=== PATIENT | female | born 1950 | race American Indian/Alaskan Native ===

== ENCOUNTER 2016-08-10 13:37 | Emergency (ER) | payer MEDICARE ==
[2016-08-10 18:34] VITALS: BP 160/100
--- NOTE | 2016-08-10 19:19 | Emergency Department Report ---
ED Shortness of Breath HPI - General Chief Complaint: Upper Respiratory Infection Stated Complaint: UPPER RESP INFECTION Time Seen by Provider: 08/10/16 19:19 Source: patient Mode of arrival: Ambulatory Limitations: No Limitations - History of Present Illness Initial Comments: Patient here complaining of cough and cold symptoms and reported her sinuses are acting up. She says she has a productive cough with yellow mucus. Denies any fever or chills. Patient stated that she walked to her primary care physician office today and that with atrial flutter breath. She says she is out of her oxygen tank at home and Dr. THOMPSON ordered oxygen for her and will receive tomorrow. She denies any abdominal pain, nausea or vomiting. Patient says she is on oxygen as needed for chronic obstructive pulmonary disease. She says she is not on any medication. Denies any chest pain. MD Complaint: shortness of breath, cough -: This afternoon Pain Scale: 0 Improves With: oxygen Worsens With: nothing Known History Of: COPD Context: recent URI, occured during exertion Associated Symptoms: cough, sputum production Treatments Prior to Arrival: none - Related Data Home Oxygen Therapy: Yes Home Oxygen Amount: 2 Liters Previous Rx's Medication Instructions Recorded Last Taken Type cloNIDine [Catapres] 0.2 mg PO TID #30 tablet 03/19/15 2 Days Ago Rx 0.2 hydrALAZINE [Apresoline TAB] 50 mg PO Q8HR #90 tablet 03/19/15 1 Day Ago Rx 50 ALBUTEROL Inhaler [ProAir HFA 2 puff IH QID PRN #1 inhalation 08/10/16 Unknown Rx Inhaler] Azithromycin [Zithromax Z-TAMMIE] 250 mg PO DAILY #6 tab 08/10/16 Unknown Rx Fluticasone [Flonase] 1 spray NS QDAY #1 bottle 08/10/16 Unknown Rx predniSONE [Deltasone] 50 mg PO QDAY #6 tab 08/10/16 Unknown Rx Allergies Allergy/AdvReac Type Severity Reaction Status Date / Time No Known Allergies Allergy Verified 03/15/15 07:34 ED Review of Systems ROS: Stated complaint: UPPER RESP INFECTION Other details as noted in HPI Comment: All other systems reviewed and negative Constitutional: denies: chills, fever Eyes: denies: eye discharge ENT: congestion Respiratory: cough, shortness of breath, SOB with exertion. 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) Hx COPD: Yes Hx Dementia: No Hx HIV: No Additional medical history: bells palsy - Surgical History Past Surgical History?: No - Family History Family history: hypertension - Social History Smoking Status: Current Some Day Smoker Substance Use Type: None - Medications Home Medications: Home Medications Medication Instructions Recorded Confirmed Last Taken Type cloNIDine [Catapres] 0.2 mg PO TID #30 tablet 03/19/15 03/15/16 2 Days Ago Rx 0.2 hydrALAZINE [Apresoline TAB] 50 mg PO Q8HR #90 tablet 03/19/15 03/15/16 1 Day Ago Rx 50 ALBUTEROL Inhaler [ProAir HFA 2 puff IH QID PRN #1 inhalation 08/10/16 Unknown Rx Inhaler] Azithromycin [Zithromax Z-TAMMIE] 250 mg PO DAILY #6 tab 08/10/16 Unknown Rx Fluticasone [Flonase] 1 spray NS QDAY #1 bottle 08/10/16 Unknown Rx predniSONE [Deltasone] 50 mg PO QDAY #6 tab 08/10/16 Unknown Rx ED Physical Exam - General Limitations: No Limitations General appearance: alert, in no apparent distress - Head Head exam: Present: atraumatic, normocephalic, normal inspection - Eye Eye exam: Present: normal appearance, PERRL, EOMI Pupils: Present: normal accommodation - ENT ENT exam: Present: normal external ear exam, other (Bilateral nasal mucosa erythema congested. Sinuses nontender to palpate.). Absent: TM's normal bilaterally (Bilateral TMs congested.) - Respiratory Respiratory exam: Present: wheezes, rhonchi, decreased breath sounds, other ( congested cough). Absent: respiratory distress, rales, stridor, chest wall tenderness, accessory muscle use - Cardiovascular Cardiovascular Exam: Present: regular rate, normal rhythm, normal heart sounds - GI/Abdominal GI/Abdominal exam: Present: soft, normal bowel sounds - Extremities Exam Extremities exam: Present: normal inspection, full ROM, normal capillary refill. Absent: tenderness, pedal edema, joint swelling, calf tenderness - Back Exam Back exam: Present: normal inspection, full ROM. Absent: tenderness, CVA tenderness (R), CVA tenderness (L), muscle spasm, paraspinal tenderness, vertebral tenderness, rash noted - Neurological Exam Neurological exam: Present: alert, oriented X3, normal gait, reflexes normal. Absent: motor sensory deficit - Psychiatric Psychiatric exam: Present: normal affect, normal mood - Skin Skin exam: Present: warm, dry, intact, normal color. Absent: rash ED Course Vital Signs 08/10/16 08/10/16 08/10/16 14:32 18:33 19:02 Temperature 98.6 F 98.8 F Pulse Rate 93 H 89 74 Respiratory 20 Rate Blood Pressure 136/91 160/100 O2 Sat by Pulse 93 90 Oximetry Vital Signs 08/10/16 08/10/16 08/10/16 14:32 18:33 19:02 Temperature 98.6 F 98.8 F Pulse Rate 93 H 89 74 Respiratory 20 Rate Blood Pressure 136/91 160/100 O2 Sat by Pulse 93 90 Oximetry 08/10/16 20:59 Temperature Pulse Rate Respiratory Rate Blood Pressure O2 Sat by Pulse 93 Oximetry - Reevaluation(s) Reevaluation #1: 08/10/16 21:[address] Duarte. Patient to follow up with him in his office tomorrow Reevaluation #2: 08/10/16 21:21 Status post nebulizer treatment. Patient's pulse ox is 93% ambulatory. Lungs sounds with scattered wheezing to upper lung mesa. ED Medical Decision Making - Radiology Data Radiology results: image reviewed interpreted by me: Chest x-ray revealed no acute cardiopulmonary processes. Xray reviewed by Dr. Cruz - Medical Decision Making ED course: Patient presented to emergency room with worsening shortness of breath after walking to her primary care physician office today. She has a history of chronic obstructive pulmonary disease and says that she uses home O2 as needed. She says she went to her primary care doctor for antibiotic for sinus infection and for him to O2 tank. I discussed the patient and S2 O2 tank from the hospital she will need to be admitted and seen by director case management to set up O2 for home. Patient is going to stay here she wants to go home. I spoke with Dr. Duarte regarding patient presentation to hospital clinical findings. He wants patient to follow-up with him in his office tomorrow. I discussed with patient and she is in agreement. I discussed with her that her chest x- ray results was negative for infection. Patient given DuoNeb times one nebulizer and Deltasone 60 mg in emergency room. Pulse ox 1 to emergency room was 93% on room air. POX on 3 l O2 98%. Absent. Pulse ox is 93% on room air. Patient will be discharged home with prescription for Zithromax, Flonase, prednisone and albuterol. - Differential Diagnosis exacerbation of COPD, acute bronchitis,PNA, sinusitis Critical care attestation.: If time is entered above; I have spent that time in minutes in the direct care of this critically ill patient, excluding procedure time. ED Disposition Clinical Impression: Cough Acute bronchitis Qualifiers: Bronchitis organism: unspecified organism Qualified Code(s): J20.9 - Acute bronchitis, unspecified Sinusitis Qualifiers: Sinusitis location: unspecified location Chronicity: acute Recurrence: not specified as recurrent Qualified Code(s): J01.90 - Acute sinusitis, unspecified Disposition: DISCHARGED TO HOME OR SELFCARE Is pt being admited?: No Does the pt Need Aspirin: No Condition: Stable Instructions: Acute Bronchitis (ED), Sinusitis (ED), Acute Cough (ED) Additional Instructions: Follow-up with primary care physician in the morning. I spoke with Dr. Duarte and he wants you to followup in the morning Take medications as prescribed Prescriptions: ALBUTEROL Inhaler [ProAir HFA Inhaler] 2 puff IH QID PRN #1 inhalation PRN Reason: Wheezing and Cough Azithromycin [Zithromax Z-TAMMIE] 250 mg PO DAILY #6 tab Fluticasone [Flonase] 1 spray NS QDAY #1 bottle predniSONE [Deltasone] 50 mg PO QDAY #6 tab Referrals: PIEDAD DUARTE MD [Primary Care Provider] - 08/11/16 Forms: Work/School Release Form(ED)
[2016-08-10] MEDS ORDERED: DELTASONE PO ONE (19:54)
[2016-08-10] MEDS ORDERED: DUONEB 0.5 MG-3 MG/3 ML SOLN IH ONE (19:58)
--- NOTE | 2016-08-11 08:24 | XRay Report ---
CHEST X-RAY, 2 VIEWS: HISTORY: Shortness of breath. FINDINGS: Compared to 06/12/16. Heart size and pulmonary vascularity are stable at the upper limits of normal. Linear scarring in the lingula is unchanged. Otherwise, the lungs are generally clear. Chronic changes in the lung bases are noted. No pleural effusion or pneumothorax. IMPRESSION: No acute cardiopulmonary process. No change since 06/12/16.
== END 2016-08-10 21:33 | disposition home or self-care (01) ==
LOC: ED 13:37
DX: J02.9 Acute pharyngitis, unspecified (principal); J01.90 Acute sinusitis, unspecified; R05 Cough; I10 Essential (primary) hypertension; I63.9 Cerebral infarction, unspecified; J44.9 Chronic obstructive pulmonary disease, unspecified; F17.200 Nicotine dependence, unspecified, uncomplicated
CPT/HCPCS: 71020; 94640

== ENCOUNTER 2017-06-07 09:16 | Emergency (ER) | payer MEDICARE ==
[2017-06-07 09:34] VITALS: BP 153/91
[2017-06-07 09:58] LABS: Basophils % (Auto) 0.8 % (0.0-1.8); Hemoglobin 19.3 gm/dl (10.1-14.3); Mean Corpuscular HGB Conc 34 % (30-34); Mean Corpuscular Hemoglobin 31 pg (28-32); Mean Corpuscular Volume 93 fl (79-97); Red Blood Count 6.18 M/mm3 (3.65-5.03); Red Cell Distribution Width 15.6 % (13.2-15.2)
[2017-06-07 10:05] LABS: INR 0.99 (0.87-1.13); Partial Thromboplastin Time 33.4 Sec. (24.2-36.6)
[2017-06-07 10:06] LABS: Platelet Count 231 K/mm3 (140-440)
[2017-06-07 10:08] LABS: Hematocrit 57.6 % (30.3-42.9)
[2017-06-07 10:16] LABS: BUN/Creatinine Ratio 13; Blood Urea Nitrogen 9 mg/dL (7-17); Calcium 8.8 mg/dL (8.4-10.2); Carbon Dioxide 24 mmol/L (22-30); Glucose 190 mg/dL (65-100)
--- NOTE | 2017-06-07 10:16 | Cat Scan Report ---
CT HEAD WITHOUT CONTRAST: HISTORY: Stroke. TECHNIQUE: Sequential CT images without contrast. FINDINGS: Images obtained show bilateral prominence of the sulci and ventricles. There are no abnormal intra- or extra-axial blood or fluid collections. There are no focal masses or evidence of mass effect. The frank white matter differentiation appears within normal limits. Regions of periventricular decreased attenuation are consistent with microangiopathic ischemic disease. The posterior fossa structures including the fourth ventricle, cerebellum, and brainstem appear normal. The sinuses are clear. Partial opacification of the right mastoid air cells is unchanged since 06/12/16. IMPRESSION: Evidence of atrophy and microangiopathic ischemic disease. No acute intracranial process noted. No significant change since 06/12/16.
[2017-06-07 10:17] LABS: Anion Gap 20 mmol/L; Chloride 99.2 mmol/L (98-107); Potassium 3.9 mmol/L (3.6-5.0); Sodium 139 mmol/L (137-145)
--- NOTE | 2017-06-07 13:18 | Emergency Department Report ---
ED Headache HPI - General Chief Complaint: Headache Stated Complaint: STROKE Time Seen by Provider: 06/07/17 11:25 Source: patient - History of Present Illness Initial Comments: Patient is 66 years old female history of hypertension and hemorrhagic CVA in 2015, presented to the ER complaining of headache started last night, throbbing in nature. Patient denied any weakness, numbness or tingling sensation. Patient denied fever or stiff neck. She also denied any bowel or bladder incontinence. Patient also stated that for the last few days she's been having runny nose and congestion. Timing/Duration: 24 hours Quality: moderate Head Injury Location: global Recent Head Trauma: no recent headache/trauma, frequent headaches Associated Symptoms: sinus infection. denies: denies symptoms, confusion, fatigue, facial pain, fever/chills, flushing, loss of consciousness, nausea/ vomiting, nasal congestion, nasal drainage, numbness in legs/feet, rash, seizures, stiff neck, vision changes, weakness, other Allergies/Adverse Reactions: Allergies No Known Allergies Allergy (Verified 03/15/15 07:34) Home Medications: Ambulatory Orders cloNIDine [Catapres] 0.2 mg PO TID #30 tablet 03/19/15 hydrALAZINE [Apresoline TAB] 50 mg PO Q8HR #90 tablet 03/19/15 ALBUTEROL Inhaler [ProAir HFA Inhaler] 2 puff IH QID PRN #1 inhalation 08/10/16 Azithromycin [Zithromax Z-TAMMIE] 250 mg PO DAILY #6 tab 08/10/16 Fluticasone [Flonase] 1 spray NS QDAY #1 bottle 08/10/16 predniSONE [Deltasone] 50 mg PO QDAY #6 tab 08/10/16 ED Review of Systems ROS: Stated complaint: STROKE Other details as noted in HPI Comment: All other systems reviewed and negative Constitutional: denies: chills, fever ENT: congestion Respiratory: denies: cough, shortness of breath, SOB with exertion, SOB at rest Cardiovascular: denies: chest pain, palpitations Gastrointestinal: denies: abdominal pain, nausea, vomiting Genitourinary: denies: urgency, dysuria Musculoskeletal: denies: back pain Skin: denies: rash, lesions Neurological: headache. 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) Hx COPD: Yes Hx Dementia: No Hx HIV: No Additional medical history: bells palsy, dementia - Surgical History Past Surgical History?: No - Social History Smoking Status: Current Every Day Smoker Substance Use Type: None - Medications Home Medications: Home Medications Medication Instructions Recorded Confirmed Last Taken Type cloNIDine [Catapres] 0.2 mg PO TID #30 tablet 03/19/15 03/15/16 2 Days Ago Rx ~03/13/16 0.2 hydrALAZINE [Apresoline TAB] 50 mg PO Q8HR #90 tablet 03/19/15 03/15/16 1 Day Ago Rx ~03/14/16 50 ALBUTEROL Inhaler [ProAir HFA 2 puff IH QID PRN #1 inhalation 08/10/16 Unknown Rx Inhaler] Azithromycin [Zithromax Z-TAMMIE] 250 mg PO DAILY #6 tab 08/10/16 Unknown Rx Fluticasone [Flonase] 1 spray NS QDAY #1 bottle 08/10/16 Unknown Rx predniSONE [Deltasone] 50 mg PO QDAY #6 tab 08/10/16 Unknown Rx ED Physical Exam - General Limitations: No Limitations General appearance: alert, in no apparent distress - Head Head exam: Present: atraumatic, normocephalic, normal inspection - Eye Eye exam: Present: normal appearance, PERRL Pupils: Present: normal accommodation - ENT ENT exam: Present: normal exam, normal orophraynx, mucous membranes moist - Neck Neck exam: Present: normal inspection, full ROM. Absent: tenderness, meningismus, lymphadenopathy, thyromegaly - Respiratory Respiratory exam: Present: normal lung sounds bilaterally. Absent: respiratory distress, wheezes, rales, rhonchi, stridor, chest wall tenderness, accessory muscle use, decreased breath sounds, prolonged expiratory - Cardiovascular Cardiovascular Exam: Present: regular rate, normal rhythm, normal heart sounds - GI/Abdominal GI/Abdominal exam: Present: soft, normal bowel sounds. Absent: distended, tenderness, guarding, rebound, rigid, organomegaly, mass, bruit, pulsatile mass , hernia - Extremities Exam Extremities exam: Present: normal inspection, full ROM, normal capillary refill - Back Exam Back exam: Present: normal inspection. Absent: tenderness, CVA tenderness (R), CVA tenderness (L) - Neurological Exam Neurological exam: Present: alert, oriented X3, CN II-XII intact, normal gait, reflexes normal. Absent: abnormal gait, motor sensory deficit - Psychiatric Psychiatric exam: Present: normal mood. Absent: depressed, suicidal ideation - Skin Skin exam: Present: warm, intact, normal color ED Course Vital Signs 06/07/17 09:22 Temperature 98.4 F Pulse Rate 79 Respiratory 19 Rate Blood Pressure 153/91 O2 Sat by Pulse 88 Oximetry - Reevaluation(s) Reevaluation #1: 06/07/17 15:44 Patient stated that she is feeling much better. Patient denied any weakness numbness or tingling sensation. No bowel or bladder incontinence. ED Medical Decision Making - Lab Data Result diagrams: 06/07/17 09:41 06/07/17 09:41 - Radiology Data Radiology results: report reviewed Referring Physician: AYLEEN HANKINS Patient Name: MONICA BERNAL Date of : 1950 Sex: Female Report Date: 2017-06-07 Report Status: [place] [address] Cat Scan Report Signed Patient: MONICA BERNAL MR#: [id number] : 1950 Acct:[id number] Age/Sex: 66 / F ADM Date: 06/07/17 Loc: ED Attending Dr: Ordering Physician: AYLEEN HANKINS MD Date of Service: 06/07/17 Procedure(s): CT head/brain wo con Accession Number(s): [id number] cc: AYLEEN HANKINS MD CT HEAD WITHOUT CONTRAST: HISTORY: Stroke. TECHNIQUE: Sequential CT images without contrast. FINDINGS: Images obtained show bilateral prominence of the sulci and ventricles. There are no abnormal intra- or extra-axial blood or fluid collections. There are no focal masses or evidence of mass effect. The frank white matter differentiation appears within normal limits. Regions of periventricular decreased attenuation are consistent with microangiopathic ischemic disease. The posterior fossa structures including the fourth ventricle, cerebellum, and brainstem appear normal. The sinuses are clear. Partial opacification of the right mastoid air cells is unchanged since 06/12/16. IMPRESSION: Evidence of atrophy and microangiopathic ischemic disease. No acute intracranial process noted. No significant change since 06/12/16. Transcribed By: TTR Dictated By: FLORENCE MOLINA JR, MD Electronically Authenticated By: FLORENCE MOLINA JR, MD Signed Date/Time: 06/07/17 1012 DD/ 1011 TD/TT: 06/07/17 1012 Critical care attestation.: If time is entered above; I have spent that time in minutes in the direct care of this critically ill patient, excluding procedure time. ED Disposition Clinical Impression: Headache Disposition: DC-01 TO HOME OR SELFCARE Is pt being admited?: No Condition: Stable Instructions: Acute Headache (ED) Referrals: PRIMARY CARE, [Primary Care Provider] - 3-5 Days
[2017-06-07] MEDS ORDERED: ZOFRAN IM ONE (13:20)
[2017-06-07] MEDS ORDERED: MORPHINE IM ONE (13:20)
== END 2017-06-07 15:30 | disposition home or self-care (01) ==
LOC: ED 09:16
DX: R51 Headache (principal); I10 Essential (primary) hypertension; J44.9 Chronic obstructive pulmonary disease, unspecified; F17.200 Nicotine dependence, unspecified, uncomplicated
CPT/HCPCS: 36415; 70450; 80048; 84484; 85025; 85610; 85670; 85730

== ENCOUNTER 2019-01-19 23:28 | Emergency (ER) | payer SELFPAY ==
--- NOTE | 2019-01-20 01:11 | Emergency Department Report ---
ED General Adult HPI - General Chief complaint: Fall Stated complaint: COPD DEMENTIA CONSTANTLY FALLING DOWN Time Seen by Provider: 01/20/19 00:52 Source: patient, family, RN notes reviewed Mode of arrival: Wheelchair Limitations: Physical Limitation - History of Present Illness Initial comments: Primary care Dr.: Dr. Oleg Muñoz Past medical history: Dementia, stroke This is a 68-year-old female. She is brought to the hospital by family. Family endorse that the patient has been having increasing frequency of falls, increasing unsteady gait, accidentally urinating on herself, and not able to take care of herself. The symptoms have been going on for the past few weeks. They are constant, does not radiate anywhere as per family do not have exa cerbating or liver factors, and they appear to be worsening. The patient endorses no complaints to this provider. As per family, they're not sure she is taking any new medications. However, they do believe that she is taking a "dementia medication." Below the name of this medication. So far, patient as per family has not been evaluated for home health and home physical therapy. The patient as per family is walking, and during walking, gradually starts to bend over. -: Gradual, week(s) Consistency: other Improves with: other Worsens with: other - Related Data Previous Rx's Medication Instructions Recorded Last Taken Type cloNIDine [Catapres] 0.2 mg PO TID #30 tablet 03/19/15 2 Days Ago Rx ~03/13/16 0.2 hydrALAZINE [Apresoline TAB] 50 mg PO Q8HR #90 tablet 03/19/15 1 Day Ago Rx ~03/14/16 50 ALBUTEROL Inhaler (OR & NICU) 2 puff IH QID PRN #1 inhalation 08/10/16 Unknown Rx [ProAir HFA Inhaler] Azithromycin [Zithromax Z-TAMMIE] 250 mg PO DAILY #6 tab 08/10/16 Unknown Rx Fluticasone [Flonase] 1 spray NS QDAY #1 bottle 08/10/16 Unknown Rx predniSONE [Deltasone] 50 mg PO QDAY #6 tab 08/10/16 Unknown Rx Ondansetron [Zofran Odt] 4 mg PO Q8HR PRN #14 tab.rapdis 06/07/17 Unknown Rx traMADol [Ultram 50 MG tab] 50 mg PO Q4HR PRN #14 tablet 06/07/17 Unknown Rx Albuterol Sulfate [Proair 90 mcg IH Q4HR PRN #2 aer.pow.ba 01/20/19 Unknown Rx Respiclick] Allergies Allergy/AdvReac Type Severity Reaction Status Date / Time No Known Allergies Allergy Verified 03/15/15 07:34 ED Review of Systems ROS: Stated complaint: COPD DEMENTIA CONSTANTLY FALLING DOWN Other details as noted in HPI Comment: Family Constitutional: denies: fever, weakness ENT: denies: congestion Respiratory: cough Cardiovascular: denies: syncope Gastrointestinal: denies: nausea, vomiting Genitourinary: other (patient accidentally urinating on his). denies: frequency Musculoskeletal: other (fall to the right upper elbow) Skin: other (abrasion to right arm) Neurological: confusion Hematological/Lymphatic: denies: easy bleeding ED Past Medical Hx - Past Medical History Previous Medical History?: Yes Hx Hypertension: Yes Hx CVA: Yes (hemorragic cva 02/2015) Hx COPD: Yes Hx Dementia: No Hx HIV: No Additional medical history: bells palsy, dementia - Surgical History Past Surgical History?: No - Social History Smoking Status: Former Smoker Substance Use Type: None - Medications Home Medications: Home Medications Medication Instructions Recorded Confirmed Last Taken Type cloNIDine [Catapres] 0.2 mg PO TID #30 tablet 03/19/15 03/15/16 2 Days Ago Rx ~03/13/16 0.2 hydrALAZINE [Apresoline TAB] 50 mg PO Q8HR #90 tablet 03/19/15 03/15/16 1 Day Ago Rx ~03/14/16 50 ALBUTEROL Inhaler (OR & NICU) 2 puff IH QID PRN #1 inhalation 08/10/16 Unknown Rx [ProAir HFA Inhaler] Azithromycin [Zithromax Z-TAMMIE] 250 mg PO DAILY #6 tab 08/10/16 Unknown Rx Fluticasone [Flonase] 1 spray NS QDAY #1 bottle 08/10/16 Unknown Rx predniSONE [Deltasone] 50 mg PO QDAY #6 tab 08/10/16 Unknown Rx Ondansetron [Zofran Odt] 4 mg PO Q8HR PRN #14 tab.rapdis 06/07/17 Unknown Rx traMADol [Ultram 50 MG tab] 50 mg PO Q4HR PRN #14 tablet 06/07/17 Unknown Rx Albuterol Sulfate [Proair 90 mcg IH Q4HR PRN #2 aer.pow.ba 01/20/19 Unknown Rx Respiclick] ED Physical Exam - General Limitations: Other (patient is demented. The patient is a poor historian. The patient follows commands. The patient is alert to name.) General appearance: alert, in no apparent distress - Head Head exam: Present: atraumatic, normocephalic - Eye Eye exam: Present: normal appearance, EOMI. Absent: nystagmus - ENT ENT exam: Present: normal exam, normal orophraynx, mucous membranes moist, normal external ear exam - Neck Neck exam: Present: normal inspection, full ROM. Absent: tenderness, meningismus - Respiratory Respiratory exam: Present: normal lung sounds bilaterally. Absent: respiratory distress, wheezes, rales, rhonchi, stridor - Cardiovascular Cardiovascular Exam: Present: regular rate, normal rhythm, normal heart sounds. Absent: bradycardia, tachycardia, irregular rhythm, systolic murmur, diastolic murmur, rubs, gallop - GI/Abdominal GI/Abdominal exam: Present: soft. Absent: distended, tenderness, guarding, rebound, rigid, pulsatile mass - Extremities Exam Extremities exam: Present: normal inspection (abrasion noted to right elbow), full ROM, other (2+ pulses noted in the bilateral upper, lower extremities. Compartments soft. No long bony tenderness. The pelvis is stable.). Absent: calf tenderness - Back Exam Back exam: Present: normal inspection, full ROM. Absent: tenderness, CVA tenderness (R), CVA tenderness (L), paraspinal tenderness, vertebral tenderness - Neurological Exam Neurological exam: Present: alert, normal gait (patient walks with a steady gait with a one-person assist), other (Extraocular movements intact. Tongue midline. No facial droop. Facial sensation intact to light touch in the V1, V2, V3 distribution bilaterally. 5 and 5 strength in 4 extremities.. Sensation is intact to light touch in 4 extremities.). Absent: motor sensory deficit - Psychiatric Psychiatric exam: Present: normal affect, normal mood - Skin Skin exam: Present: warm, dry, intact, normal color. Absent: rash ED Course Vital Signs 01/19/19 01/20/19 01/20/19 23:41 01:45 03:35 Temperature 98.3 F Pulse Rate 75 Pulse Rate [ 68 Bilateral Throughout] Respiratory 14 16 Rate Respiratory 18 Rate [Bilateral Throughout] Blood Pressure 127/88 Blood Pressure [Left] O2 Sat by Pulse 96 99 Oximetry 01/20/19 05:15 Temperature 98.1 F Pulse Rate 66 Pulse Rate [ Bilateral Throughout] Respiratory 18 Rate Respiratory Rate [Bilateral Throughout] Blood Pressure Blood Pressure 145/85 [Left] O2 Sat by Pulse 96 Oximetry - Reevaluation(s) Reevaluation #1: 01/20/19 02:17 Differential diagnosis, including not limited to: Intracranial injury, cervical spine injury, electrolyte derangement, pneumonia, urinary tract infection, thyroid derangement, dementia Assessment and plan: 68-year-old female who walks with a steady gait with minimal one-person assist, no evidence of lower extremity weakness, no endorse complaint unintentional urinary retention, urinating on herself because she can't get to the bathroom in time, the experiencing the natural expected progression of dementia. She is hemodynamically stable with unremarkable physical examination. CT scan of the brain and cervical spine are ordered. Scr eening laboratory studies ordered. Case management consultation physical therapy evaluation ordered. Discussed with family the patient is likely experiencing natural history of dementia, and that she will likely need assistance, either in the form of a home health aide, or possible placement into a personal care facility. We will defer displacements and evaluation to outpatient physical therapy, primary care, and case management. We have ordered case management and physical therapy consults to assist with this. Reevaluation #2: 01/20/19 05:53 CT scan of the brain, cervical spine negative for traumatic disease. Patient resting comfortably in her room, and in no acute distress. Of note, patient had a delayed her stay and disposition as family initially declined catheterization. Urinalysis is not consistent with urinary tract infection. Patient medically suitable to be discharged home. Family can watch her. I will defer to outpatient primary care and/or case management. ED Medical Decision Making - Lab Data Result diagrams: 01/20/19 01:30 01/20/19 01:30 Vital Signs 01/19/19 23:41 Temperature 98.3 F Pulse Rate 75 Respiratory 14 Rate Blood Pressure 127/88 O2 Sat by Pulse 96 Oximetry Lab Results 01/20/19 01/20/19 01/20/19 Range/Units 01:30 01:30 01:30 WBC 8.0 (4.5-11.0) K/mm3 RBC 4.86 (3.65-5.03) M/mm3 Hgb 15.2 H (10.1-14.3) gm/dl Hct 45.1 H (30.3-42.9) % MCV 93 (79-97) fl MCH 31 (28-32) pg MCHC 34 (30-34) % RDW 14.6 (13.2-15.2) % Plt Count 207 (140-440) K/mm3 Lymph % (Auto) 33.6 (13.4-35.0) % [place] % (Auto) 10.8 H (0.0-7.3) % Eos % (Auto) 2.2 (0.0-4.3) % Baso % (Auto) 1.0 (0.0-1.8) % Lymph # 2.7 (1.2-5.4) K/mm3 [place] # 0.9 H (0.0-0.8) K/mm3 Eos # 0.2 (0.0-0.4) K/mm3 Baso # 0.1 (0.0-0.1) K/mm3 Seg Neutrophils % 52.4 (40.0-70.0) % Seg Neutrophils # 4.2 (1.8-7.7) K/mm3 Carbon Dioxide 25 (22-30) mmol/L Creatinine 0.8 (0.7-1.2) mg/dL Estimated GFR > 60 ml/min Glucose 113 H (65-100) mg/dL Calcium 9.1 (8.4-10.2) mg/dL Magnesium 2.30 (1.7-2.3) mg/dL Total Bilirubin 0.30 (0.1-1.2) mg/dL AST 23 (5-40) units/L ALT 17 (7-56) units/L Alkaline Phosphatase 75 (35-129) units/L Ammonia (25-60) umol/L Total Creatine Kinase 304 H (30-135) units/L Total Protein 7.7 (6.3-8.2) g/dL Albumin 3.7 L (3.9-5) g/dL Albumin/Globulin Ratio 0.9 % 01/20/19 Range/Units 01:30 WBC (4.5-11.0) K/mm3 RBC (3.65-5.03) M/mm3 Hgb (10.1-14.3) gm/dl Hct (30.3-42.9) % MCV (79-97) fl MCH (28-32) pg MCHC (30-34) % RDW (13.2-15.2) % Plt Count (140-440) K/mm3 Lymph % (Auto) (13.4-35.0) % [place] % (Auto) (0.0-7.3) % Eos % (Auto) (0.0-4.3) % Baso % (Auto) (0.0-1.8) % Lymph # (1.2-5.4) K/mm3 [place] # (0.0-0.8) K/mm3 Eos # (0.0-0.4) K/mm3 Baso # (0.0-0.1) K/mm3 Seg Neutrophils % (40.0-70.0) % Seg Neutrophils # (1.8-7.7) K/mm3 Carbon Dioxide (22-30) mmol/L Creatinine (0.7-1.2) mg/dL Estimated GFR ml/min Glucose (65-100) mg/dL Calcium (8.4-10.2) mg/dL Magnesium (1.7-2.3) mg/dL Total Bilirubin (0.1-1.2) mg/dL AST (5-40) units/L ALT (7-56) units/L Alkaline Phosphatase (35-129) units/L Ammonia 40.0 (25-60) umol/L Total Creatine Kinase (30-135) units/L Total Protein (6.3-8.2) g/dL Albumin (3.9-5) g/dL Albumin/Globulin Ratio % - EKG Data -: EKG Interpreted by Wy EKG shows normal: sinus rhythm Rate: normal - EKG Data 01/20/19 02:20 This is a sinus rhythm, 65 bpm, left axis deviation, left anterior fascicular block, atrial enlargement, poor R progression, low voltage, this is an abnormal EKG, HEENT is not consistent with ST elevation myocardial infarction, it has nonspecific changes when compared to prior EKG from 06/12/2016. - Radiology Data Radiology results: pending, report reviewed, image reviewed interpreted by me: X-ray of the chest, pelvis, right arm negative for acute disease. Critical care attestation.: If time is entered above; I have spent that time in minutes in the direct care of this critically ill patient, excluding procedure time. ED Disposition Clinical Impression: History of fall Dementia Qualifiers: Alzheimer's disease onset: unspecified onset Dementia behavioral disturbance: without behavioral disturbance Disposition: DC-01 TO HOME OR SELFCARE Is pt being admited?: No Does the pt Need Aspirin: No Condition: Stable Instructions: Dementia (ED) Additional Instructions: As we discussed, patient likely experiencing worsening dementia. Unfortunately, this condition is irreversible. Patient will likely continue to have falls. Patient should follow-up with her primary care doctor for evaluation for physical therapy, and to see if she is eligible for either home health aide, or placement in a prison. In addition, a case management consult has been ordered to see if patient can be set up for any of these things. The meantime, please continue patient's medications, and please make certain that the patient is accompanied for most if not all of the day. Please return to the emergency room right away with new, worsening or different symptoms, or symptoms not present on the initial emergency room evaluation. Follow-up with your primary care doctor within the next 7-10 days. Patient can take Tylenol [id number] as needed for pain. Patient can use albuterol medication as directed as needed for cough and/or shortness of breath. Prescriptions: Albuterol Sulfate [Proair Respiclick] 90 mcg IH Q4HR PRN #2 aer.[email or web address] PRN Reason: Wheezing Referrals: OLEG MUÑOZ MD [Primary Care Provider] - 3-5 Days
[2019-01-20 01:56] LABS: Basophils # (Auto) 0.1 K/mm3 (0.0-0.1); Eosinophils # (Auto) 0.2 K/mm3 (0.0-0.4); Eosinophils % (Auto) 2.2 % (0.0-4.3); Hematocrit 45.1 % (30.3-42.9); Hemoglobin 15.2 gm/dl (10.1-14.3); Lymphocytes # (Auto) 2.7 K/mm3 (1.2-5.4); Lymphocytes % (Auto) 33.6 % (13.4-35.0); Mean Corpuscular HGB Conc 34 % (30-34); Mean Corpuscular Volume 93 fl (79-97); Monocytes # (Auto) 0.9 K/mm3 (0.0-0.8); Monocytes % (Auto) 10.8 % (0.0-7.3); Platelet Count 207 K/mm3 (140-440); Red Blood Count 4.86 M/mm3 (3.65-5.03); Red Cell Distribution Width 14.6 % (13.2-15.2)
[2019-01-20 02:15] LABS: Alanine Aminotransferase 17 units/L (7-56); Albumin 3.7 g/dL (3.9-5); Calcium 9.1 mg/dL (8.4-10.2); Hemolysis Index 31
--- NOTE | 2019-01-20 02:24 | XRay Report ---
CHEST 1 VIEW 01/20/2019 1:37 AM INDICATION / CLINICAL INFORMATION: Weakness. Cough. COMPARISON: None available. FINDINGS: SUPPORT DEVICES: None. HEART / MEDIASTINUM: Normal cardiac size with an ectatic, calcified aorta. LUNGS / PLEURA: There is mild left basilar atelectasis. The lungs are otherwise clear. No significant pleural effusion. No pneumothorax. ADDITIONAL FINDINGS: No significant additional findings. IMPRESSION: 1. No acute findings. 2. Additional findings as above. Signer Name: Tom Pritchett MD Signed: 01/20/2019 2:20 AM Workstation Name: [id number]
--- NOTE | 2019-01-20 02:25 | XRay Report ---
PELVIS ONE VIEW INDICATION / CLINICAL INFORMATION: Weakness. History of falls. Possible pelvic injury. COMPARISON: None available. FINDINGS: BONES and JOINT(S): No acute fracture or subluxation. No significant arthritis. SOFT TISSUES: No acute findings. There is mild generalized atherosclerosis. ADDITIONAL FINDINGS: None. IMPRESSION: No acute findings. Signer Name: Tom Pritchett MD Signed: 01/20/2019 2:21 AM Workstation Name: [id number]
--- NOTE | 2019-01-20 02:26 | XRay Report ---
RIGHT ELBOW 3 VIEWS INDICATION / CLINICAL INFORMATION: Right elbow abrasion after fall. COMPARISON: None available. FINDINGS: BONES and JOINT(S): No acute fracture or subluxation. No significant arthritis. SOFT TISSUES: No significant abnormality. ADDITIONAL FINDINGS: None. IMPRESSION: No acute findings. Signer Name: Tom Pritchett MD Signed: 01/20/2019 2:21 AM Workstation Name: [id number]
[2019-01-20 02:54] LABS: BUN/Creatinine Ratio 19; Blood Urea Nitrogen 15 mg/dL (7-17)
[2019-01-20] MEDS ORDERED: PROVENTIL IH ONE (03:07)
--- NOTE | 2019-01-20 04:05 | Cat Scan Report ---
CT HEAD WITHOUT CONTRAST INDICATION : Altered mental status. Weakness. Memory loss. History of falls. TECHNIQUE: Axial, coronal and sagittal CT imaging was performed from the skull apex through the skul l base without contrast. All CT scans at this location are performed using CT dose reduction for ALA RA by means of automated exposure control. COMPARISON: CT of the head without contrast from 06/07/2017. FINDINGS: PARENCHYMA: No mass, midline shift, hemorrhage, extraaxial collection or acute territorial infarctio n. There is similar generalized atrophy with extensive confluent areas of low-attenuation along the p eriventricular white matter that are consistent with chronic microvascular skinny changes. VENTRICLES: Prominent secondary to atrophy. No acute abnormality. SOFT TISSUES: Soft tissues including the orbits appear normal. BONES: No acute osseous abnormality. SINUSES: No significant abnormality. ADDITIONAL FINDINGS: None. IMPRESSION: 1. No acute abnormality. 2. Additional stable chronic changes as above. Signer Name: Tom Pritchett MD Signed: 01/20/2019 4:01 AM Workstation Name: [id number]
--- NOTE | 2019-01-20 04:22 | Cat Scan Report ---
CT CERVICAL SPINE WITHOUT CONTRAST INDICATION: Altered mental status. History of falls. Possible neck injury. COMPARISON: None available. TECHNIQUE: Axial, coronal and sagittal CT imaging of the cervical spine without contrast was performe d. All CT scans at this location are performed using CT dose reduction for ALARA by means of automat ed exposure control. FINDINGS: VERTEBRAE:No acute fracture. Normal alignment. DISC SPACES: Multilevel discogenic degenerative changes are most significant at C5-C6. FACET JOINTS:No significant abnormality. CENTRAL CANAL: Moderate central canal stenosis is noted at C3-C4 secondary to a disc protrusion. Ther e is multilevel bilateral neural foraminal narrowing. SOFT TISSUES:No acute abnormality. There is mild generalized atherosclerosis. LUNG APICES: No significant abnormality. ADDITIONAL FINDINGS: None IMPRESSION: 1. No acute abnormality of the cervical spine. 2. Cervical spondylosis as above. 3. Moderate central canal stenosis at C3-C4 secondary to a disc protrusion. Signer Name: Tom Pritchett MD Signed: 01/20/2019 4:18 AM Workstation Name: [id number]
[2019-01-20 05:16] VITALS: BP 145/85
[2019-01-20 05:32] LABS: Bilirubin,Urine NEG (Negative); Blood,Urine NEG (Negative); Color,Urine Yellow (Yellow); Mucus,Urine FEW /HPF; Protein,Urine <15 mg/dL mg/dL (Negative)
== END 2019-01-20 06:02 | disposition home or self-care (01) ==
LOC: ED 23:28
DX: F03.90 Unspecified dementia, unspecified severity, without behavioral disturbance, psychotic disturbance, mood disturbance, and anxiety (principal); I10 Essential (primary) hypertension; J44.9 Chronic obstructive pulmonary disease, unspecified; G51.0 Bell's palsy; W18.30XA Fall on same level, unspecified, initial encounter; Y93.89 Activity, other specified; Y92.89 Other specified places as the place of occurrence of the external cause; Y99.8 Other external cause status
CPT/HCPCS: 36415; 70450; 71045; 72125; 72170; 80053; 80320; 81001; 82140; 82550; 83735; 84443; 85025; 87086; 93005; 93010; 94644; G0480

== ENCOUNTER 2019-01-24 04:57 | Inpatient (IN) | payer MEDICARE ==
--- NOTE | 2019-01-24 05:15 | Emergency Department Report ---
ED Neuro Deficit HPI - General Stated Complaint: POSS STROKE - History of Present Illness Initial Comments: [facility] Date of Service: 01/24/2019 04:59:29 Impression: Posterior Circulation Metrics: Last Known Well: 01/23/2019 23:00:00 Start Time: 01/24/2019 04:58:09 Arrival Time: 01/24/2019 04:57:00 Stamp Time: 01/24/2019 04:59:29 Time First Login Attempt: 01/24/2019 05:02:28 Video Start Time: 01/24/2019 05:02:28 Symptoms: weakness and confusion NIHSS Start Assessment Time: 01/24/2019 05:25:00 Patient is not a candidate for tPA. Patient was not deemed candidate for tPA thrombolytics because of Last Well K nown above 4.5 hours. Video End Time: 01/24/2019 05:34:38 CT head was reviewd and no acute process seen. Advanced imaging CTA head and neck ordered but not able to be obtained at this time. ER physician notified of the decision on thrombolytics management. Comments: Decreased mental status and generalized weakness with increased tone in the elft upper extremity, Would consider seizure vs basilar thrombus. CTA ordered but the CT scanner is down so will treat as seizure and see if she improves and get CTA when able to. Our recommendations are outlined below. Recommendations: Initiate Aspirin 81 MG Daily Recommended Scan: MRI Head Without Contrast MRA Neck with and Without Contrast Echocardiogram - Transthoracic Echocardiogram Lipid Panel to Be Obtained, if Not Done in the Last Three Months Therapies: Physical Therapy, Occupational Therapy, Speech Therapy Assessment When Applicable Dysphaghia Screen: Swallow Evaluation, Bedside DVT prophylaxis: SCDs, Pneumatic Compression Load with Keppra 1000mg Disposition: Follow up with Teleneurology Follow up Sign Out: Discussed with Emergency Department Provider History of Present Illness: Patient is a 68 years old Female who presents with symptoms of weakness and confusion 68 yo F with history of dementia and stroke who is presenting with weakness and confusion. Her daughter put her on the toilet at 23:00 and then when she went back to get her she was stuck. She appeared to be weak on one side but her daughter can't remember which side. She then wasn't talking so she called EMS. She had fallen asleep after bringing her to the bathroom and does not remember what time it was she went back. Stroke alert called for EMS presentations Examination: 1A: Level of Consciousness - Requires repeated stimulation to arouse + 2 1B: Ask Month and Age - Aphasic + 2 1C: Blink Eyes & Squeeze Hands - Performs 0 Tasks + 2 2: Test Horizontal Extraocular Movements - Normal + 0 3: Test Visual Jerome - No Visual Loss + 0 4: Test Facial Palsy (Use Grimace if Obtunded) - Normal symmetry + 0 5A: Test Left Arm Motor Drift - No Effort Against [place] + 3 5B: Test Right Arm Motor Drift - Drift, hits bed + 2 6A: Test Left Leg Motor Drift - Some Effort Against [place]side + 2 6B: Test Right Leg Motor Drift - Some Effort Against [place] + 2 7: Test Limb Ataxia (FNF/Heel-Sharma) - No Ataxia + 0 8: Test Sensation - Normal; No sensory loss + 0 9: Test Language/Aphasia - Mute/Global Aphasia: No Usable Speech/Auditory Comprehension + 3 10: Test Dysarthria - Mute/Anarthric + 2 11: Test Extinction/Inattention - No abnormality + 0 NIHSS Score: 20 Patient was informed the Neurology Consult would happen via TeleHealth consult by way of interactive audio and video telecommunications and consented to receiving care in this manner. Due to the immediate potential for life-threatening deterioration due to underlying acute neurologic illness, I spent 35 minutes providing critical care. This time includes time for face to face visit via telemedicine, review of medical records, imaging studies and discussion of findings with providers, the patient and/or family. Dr Mónica [facility] - Related Data Home Medications: Previous Rx's Medication Instructions Recorded Last Taken Type cloNIDine [Catapres] 0.2 mg PO TID #30 tablet 03/19/15 2 Days Ago Rx ~03/13/16 0.2 hydrALAZINE [Apresoline TAB] 50 mg PO Q8HR #90 tablet 03/19/15 1 Day Ago Rx ~03/14/16 50 ALBUTEROL Inhaler (OR & NICU) 2 puff IH QID PRN #1 inhalation 08/10/16 Unknown Rx [ProAir HFA Inhaler] Azithromycin [Zithromax Z-TAMMIE] 250 mg PO DAILY #6 tab 08/10/16 Unknown Rx Fluticasone [Flonase] 1 spray NS QDAY #1 bottle 08/10/16 Unknown Rx predniSONE [Deltasone] 50 mg PO QDAY #6 tab 08/10/16 Unknown Rx Ondansetron [Zofran Odt] 4 mg PO Q8HR PRN #14 tab.rapdis 06/07/17 Unknown Rx traMADol [Ultram 50 MG tab] 50 mg PO Q4HR PRN #14 tablet 06/07/17 Unknown Rx Albuterol Sulfate [Proair 90 mcg IH Q4HR PRN #2 aer.pow.ba 01/20/19 Unknown Rx Respiclick] Allergies/Adverse Reactions: Allergies Allergy/AdvReac Type Severity Reaction Status Date / Time No Known Allergies Allergy Verified 03/15/15 07:34 ED Review of Systems ROS: Stated complaint: POSS STROKE Other details as noted in HPI ED Past Medical Hx - Past Medical History Hx Hypertension: Yes Hx CVA: Yes (hemorragic cva 02/2015) Hx COPD: Yes Hx Dementia: No Hx HIV: No Additional medical history: bells palsy, dementia - Social History Smoking Status: Never Smoker Substance Use Type: None - Medications Home Medications: Home Medications Medication Instructions Recorded Confirmed Last Taken Type cloNIDine [Catapres] 0.2 mg PO TID #30 tablet 03/19/15 03/15/16 2 Days Ago Rx ~03/13/16 0.2 hydrALAZINE [Apresoline TAB] 50 mg PO Q8HR #90 tablet 03/19/15 03/15/16 1 Day Ago Rx ~03/14/16 50 ALBUTEROL Inhaler (OR & NICU) 2 puff IH QID PRN #1 inhalation 08/10/16 Unknown Rx [ProAir HFA Inhaler] Azithromycin [Zithromax Z-TAMMIE] 250 mg PO DAILY #6 tab 08/10/16 Unknown Rx Fluticasone [Flonase] 1 spray NS QDAY #1 bottle 08/10/16 Unknown Rx predniSONE [Deltasone] 50 mg PO QDAY #6 tab 08/10/16 Unknown Rx Ondansetron [Zofran Odt] 4 mg PO Q8HR PRN #14 tab.rapdis 06/07/17 Unknown Rx traMADol [Ultram 50 MG tab] 50 mg PO Q4HR PRN #14 tablet 06/07/17 Unknown Rx Albuterol Sulfate [Proair 90 mcg IH Q4HR PRN #2 aer.pow.ba 01/20/19 Unknown Rx Respiclick] ED Neuro Physical Exam - General Suspected Stroke: Yes - NIHSS Assessment Interval: Baseline 1a. Level of Consciousness: resp stimuli/obtunded 1b. LOC Questions: answers no questions correctly 1c. LOC Commands: performs no tasks correctly 2. Best Gaze: normal 3. Visual: no visual loss 4. Facial Palsy: normal symmetrical movement 5b. Motor Arm Right: some gravity effort 5a. Motor Arm Left: no gravity effort 6a. Motor Leg Left: some gravity effort 6b. Motor Leg Right: some gravity effort 7. Limb Ataxia: absent 8. Sensory: normal 9. Best Language: mute/global aphasia 10. Dysarthria: severe dysarthria 11. Extinction/Inattention: no abnormality Total Score: 20 Stroke Severity: Moderate to Severe Stroke Critical care attestation.: If time is entered above; I have spent that time in minutes in the direct care of this critically ill patient, excluding procedure time. ED Disposition Clinical Impression: Altered mental status, unspecified Disposition: OP ADMIT IP TO THIS HOSP Is pt being admited?: Yes Condition: Stable
[2019-01-24] MEDS ORDERED: KEPPRA 1,000 MG/NS 0.75% 100ML 1,000 MG/100 ML BAG IV ONE (05:36)
[2019-01-24 05:56] LABS: Basophils # (Auto) 0.1 K/mm3 (0.0-0.1); Basophils % (Auto) 0.8 % (0.0-1.8); Eosinophils % (Auto) 0.2 % (0.0-4.3); Hemoglobin 15.3 gm/dl (10.1-14.3); Lymphocytes # (Auto) 0.8 K/mm3 (1.2-5.4); Lymphocytes % (Auto) 8.5 % (13.4-35.0); Mean Corpuscular HGB Conc 33 % (30-34); Mean Corpuscular Volume 94 fl (79-97); Monocytes # (Auto) 0.2 K/mm3 (0.0-0.8); Monocytes % (Auto) 2.5 % (0.0-7.3); Platelet Count 214 K/mm3 (140-440); Red Blood Count 4.92 M/mm3 (3.65-5.03); Red Cell Distribution Width 14.4 % (13.2-15.2)
[2019-01-24 06:05] LABS: INR 1.02 (0.87-1.13)
[2019-01-24 06:06] LABS: Partial Thromboplastin Time 26.4 Sec. (24.2-36.6)
[2019-01-24 06:12] LABS: BUN/Creatinine Ratio 18; Blood Urea Nitrogen 11 mg/dL (7-17); Calcium 8.7 mg/dL (8.4-10.2); Hemolysis Index 0
--- NOTE | 2019-01-24 06:27 | Emergency Department Report ---
ED General Adult HPI - General Chief complaint: Neuro Symptoms/Deficit Stated complaint: POSS STROKE Time Seen by Provider: 01/24/19 06:07 Source: family, EMS (ems notes not available at time of chart dictation), RN notes reviewed, old records reviewed Mode of arrival: Stretcher Limitations: Altered Mental Status, Physical Limitation - History of Present Illness Initial comments: Primary care Dr.: Dr. Oleg Gould Past medical history: Dementia, COPD, hemorrhagic stroke, question ischemic stroke This is a 68-year-old female who is brought to the hospital by family or weakness and altered mental status and confusion. Apparently, her last well amador e is at 11:00 yesterday evening. Family indicates that they put the patient on the toilet, and then when he went to go back to get her, she was stuck. There was questionable lateral weakness, although family cannot recall which side. Apparently, the patient had not been talking, and family had fallen asleep after bringing her to the bathroom, and they were not quite sure what time they had membership sales representative to the bathroom to see the patient. In the emergency room, the patient was seen and evaluated by stroke neurology, who indicated that the patient was not a TPA candidate. Furthermore, during the patient's evaluation, she was noted to be actively resisting range of motion in her left arm and left leg. CT scan of the brain was negative for acute disease, and patient is currently in MRI at this point in time. Patient was loaded with Keppra. The patient is currently altered, and not speaking to this provider either, therefore, she is not able to describe exacerbating or relieving factors, qualitative nature of her symptoms. As per her family, she has chronic dementia, and was supposed to follow up later on today with outpatient case management and physical therapy. Since her previous evaluation 5 days ago, there is been no episodes of syncope, nausea, vomiting, fevers or chills. There are no new medicines of the family is aware. The patient was seen in this department 5 days ago by this provider for increasing frequency of falls, and worsening confusion. -: unknown Radiation: other Quality: other Consistency: other Improves with: other Worsens with: other - Related Data Previous Rx's Medication Instructions Recorded Last Taken Type cloNIDine [Catapres] 0.2 mg PO TID #30 tablet 03/19/15 2 Days Ago Rx ~03/13/16 0.2 hydrALAZINE [Apresoline TAB] 50 mg PO Q8HR #90 tablet 03/19/15 1 Day Ago Rx ~03/14/16 50 ALBUTEROL Inhaler (OR & NICU) 2 puff IH QID PRN #1 inhalation 08/10/16 Unknown Rx [ProAir HFA Inhaler] Azithromycin [Zithromax Z-TAMMIE] 250 mg PO DAILY #6 tab 08/10/16 Unknown Rx Fluticasone [Flonase] 1 spray NS QDAY #1 bottle 08/10/16 Unknown Rx predniSONE [Deltasone] 50 mg PO QDAY #6 tab 08/10/16 Unknown Rx Ondansetron [Zofran Odt] 4 mg PO Q8HR PRN #14 tab.rapdis 06/07/17 Unknown Rx traMADol [Ultram 50 MG tab] 50 mg PO Q4HR PRN #14 tablet 06/07/17 Unknown Rx Albuterol Sulfate [Proair 90 mcg IH Q4HR PRN #2 aer.pow.ba 01/20/19 Unknown Rx Respiclick] Allergies Allergy/AdvReac Type Severity Reaction Status Date / Time No Known Allergies Allergy Verified 03/15/15 07:34 ED Review of Systems ROS: Stated complaint: POSS STROKE Other details as noted in HPI Comment: ros per family Constitutional: malaise Neurological: weakness, confusion ED Past Medical Hx - Past Medical History Hx Hypertension: Yes Hx CVA: Yes (hemorragic cva 02/2015) Hx COPD: Yes Hx Dementia: No Hx HIV: No Additional medical history: bells palsy, dementia - Social History Smoking Status: Never Smoker Substance Use Type: None - Medications Home Medications: Home Medications Medication Instructions Recorded Confirmed Last Taken Type cloNIDine [Catapres] 0.2 mg PO TID #30 tablet 03/19/15 03/15/16 2 Days Ago Rx ~03/13/16 0.2 hydrALAZINE [Apresoline TAB] 50 mg PO Q8HR #90 tablet 03/19/15 03/15/16 1 Day Ago Rx ~03/14/16 50 ALBUTEROL Inhaler (OR & NICU) 2 puff IH QID PRN #1 inhalation 08/10/16 Unknown Rx [ProAir HFA Inhaler] Azithromycin [Zithromax Z-TAMMIE] 250 mg PO DAILY #6 tab 08/10/16 Unknown Rx Fluticasone [Flonase] 1 spray NS QDAY #1 bottle 08/10/16 Unknown Rx predniSONE [Deltasone] 50 mg PO QDAY #6 tab 08/10/16 Unknown Rx Ondansetron [Zofran Odt] 4 mg PO Q8HR PRN #14 tab.rapdis 06/07/17 Unknown Rx traMADol [Ultram 50 MG tab] 50 mg PO Q4HR PRN #14 tablet 06/07/17 Unknown Rx Albuterol Sulfate [Proair 90 mcg IH Q4HR PRN #2 aer.pow.ba 01/20/19 Unknown Rx Respiclick] ED Physical Exam - General Limitations: Altered Mental Status, Physical Limitation, Other General appearance: other (patient is listless, responds to stimuli) - Head Head exam: Present: atraumatic, normocephalic - Eye Eye exam: Present: normal appearance, PERRL - ENT ENT exam: Present: normal exam, normal orophraynx, mucous membranes moist, other - Neck Neck exam: Present: normal inspection, full ROM. Absent: tenderness, meningismus - Respiratory Respiratory exam: Present: decreased breath sounds. Absent: respiratory distress, wheezes, rales, rhonchi, stridor - Cardiovascular Cardiovascular Exam: Present: regular rate, normal rhythm. Absent: systolic murmur, diastolic murmur, rubs, gallop - GI/Abdominal GI/Abdominal exam: Present: soft. Absent: distended, tenderness, guarding, rebound, rigid, pulsatile mass - Extremities Exam Extremities exam: Present: normal inspection, other (2+ pulses noted in the bilateral upper, lower extremities. Compartments soft. No long bony tenderness. The pelvis is stable.). Absent: calf tenderness - Back Exam Back exam: Present: normal inspection. Absent: tenderness, CVA tenderness (R), paraspinal tenderness, vertebral tenderness - Neurological Exam Neurological exam: Present: altered (detailed neurologic examination not possible secondary to altered mental status.), other (patient moves 4 extrem ities in response to pinch. When passively ranging her left arm, the patient actively resists range of motion, and is noted to be engaging left deltoid, left bicep and left tricep. There is no obvious facial droop. The patient is nonverbal.) - Psychiatric Psychiatric exam: Present: other (the patient is nonverbal) - Skin Skin exam: Present: warm, dry, intact, normal color. Absent: rash ED Course Vital Signs 01/24/19 01/24/19 01/24/19 05:30 06:30 06:41 Temperature 99.5 F Pulse Rate 97 H 92 H Respiratory 21 14 Rate Blood Pressure 165/98 157/99 Blood Pressure [Left] O2 Sat by Pulse 95 95 Oximetry 01/24/19 01/24/19 01/24/19 07:00 07:45 08:00 Temperature Pulse Rate 96 H 90 98 H Respiratory 18 22 14 Rate Blood Pressure 155/90 151/92 152/93 Blood Pressure [Left] O2 Sat by Pulse 91 90 93 Oximetry 01/24/19 01/24/19 01/24/19 10:10 10:15 10:46 Temperature Pulse Rate 81 77 83 Respiratory 13 13 18 Rate Blood Pressure 151/103 155/85 Blood Pressure 158/96 [Left] O2 Sat by Pulse 94 96 96 Oximetry - Reevaluation(s) Reevaluation #1: 01/24/19 11:36 No large vessel occlusion is noted ED Medical Decision Making - Lab Data Result diagrams: 01/24/19 05:32 01/24/19 05:32 Vital Signs 01/24/19 01/24/19 01/24/19 05:30 06:30 06:41 Temperature 99.5 F Pulse Rate 97 H 92 H Respiratory 21 14 Rate Blood Pressure 165/98 157/99 O2 Sat by Pulse 95 95 Oximetry Lab Results 01/24/19 01/24/19 01/24/19 Range/Units 05:32 05:32 05:32 WBC 8.9 (4.5-11.0) K/mm3 RBC 4.92 (3.65-5.03) M/mm3 Hgb 15.3 H (10.1-14.3) gm/dl Hct 46.0 H (30.3-42.9) % MCV 94 (79-97) fl MCH 31 (28-32) pg MCHC 33 (30-34) % RDW 14.4 (13.2-15.2) % Plt Count 214 (140-440) K/mm3 Lymph % (Auto) 8.5 L (13.4-35.0) % [place] % (Auto) 2.5 (0.0-7.3) % Eos % (Auto) 0.2 (0.0-4.3) % Baso % (Auto) 0.8 (0.0-1.8) % Lymph # 0.8 L (1.2-5.4) K/mm3 [place] # 0.2 (0.0-0.8) K/mm3 Eos # 0.0 (0.0-0.4) K/mm3 Baso # 0.1 (0.0-0.1) K/mm3 Seg Neutrophils % 88.0 H (40.0-70.0) % Seg Neutrophils # 7.9 H (1.8-7.7) K/mm3 PT 13.1 (12.2-14.9) Sec. INR 1.02 (0.87-1.13) APTT 26.4 (24.2-36.6) Sec. Thrombin Time 18.0 (15.1-19.6) Sec. Sodium 138 (137-145) mmol/L Potassium 4.0 (3.6-5.0) mmol/L Chloride 101.5 (98-107) mmol/L Carbon Dioxide 28 (22-30) mmol/L Anion Gap 13 mmol/L BUN 11 (7-17) mg/dL Creatinine 0.6 L (0.7-1.2) mg/dL Estimated GFR > 60 ml/min BUN/Creatinine Ratio 18 % Glucose 190 H (65-100) mg/dL Calcium 8.7 (8.4-10.2) mg/dL Magnesium (1.7-2.3) mg/dL Total Creatine Kinase (30-135) units/L Troponin T < 0.010 (0.00-0.029) ng/mL 01/24/19 Range/Units 05:32 WBC (4.5-11.0) K/mm3 RBC (3.65-5.03) M/mm3 Hgb (10.1-14.3) gm/dl Hct (30.3-42.9) % MCV (79-97) fl MCH (28-32) pg MCHC (30-34) % RDW (13.2-15.2) % Plt Count (140-440) K/mm3 Lymph % (Auto) (13.4-35.0) % [place] % (Auto) (0.0-7.3) % Eos % (Auto) (0.0-4.3) % Baso % (Auto) (0.0-1.8) % Lymph # (1.2-5.4) K/mm3 [place] # (0.0-0.8) K/mm3 Eos # (0.0-0.4) K/mm3 Baso # (0.0-0.1) K/mm3 Seg Neutrophils % (40.0-70.0) % Seg Neutrophils # (1.8-7.7) K/mm3 PT (12.2-14.9) Sec. INR (0.87-1.13) APTT (24.2-36.6) Sec. Thrombin Time (15.1-19.6) Sec. Sodium (137-145) mmol/L Potassium (3.6-5.0) mmol/L Chloride (98-107) mmol/L Carbon Dioxide (22-30) mmol/L Anion Gap mmol/L BUN (7-17) mg/dL Creatinine (0.7-1.2) mg/dL Estimated GFR ml/min BUN/Creatinine Ratio % Glucose (65-100) mg/dL Calcium (8.4-10.2) mg/dL Magnesium 2.00 (1.7-2.3) mg/dL Total Creatine Kinase 919 H (30-135) units/L Troponin T (0.00-0.029) ng/mL - EKG Data -: EKG Interpreted by Ga EKG shows normal: sinus rhythm Rate: normal - EKG Data 01/24/19 09:09 EKG today shows a sinus rhythm, 94 bpm, left axis deviation, low voltage, motion artifact, poor R progression, QTC prolonged, the EKG is abnormal, EKG appears to be unchanged from prior EKG from 01/20/2019. - Radiology Data Radiology results: pending, report reviewed, image reviewed Noncontrast CT scan of the brain is negative for acute disease. Chronic findings are noted. - Medical Decision Making Differential diagnosis, including but not limited to: Seizure, postictal state, TIA, subacute stroke, pneumonia, urinary tract infection, electrolyte derangement Assessment and plan: 68-year-old female presenting with a last known well time 11:00 last night, presents to the ER today at 5:00 AM with nonspecific alteration in mental status, and refusing to move her left arm. Her mental status today is diminished compared to my prior evaluation. The patient presents more than 4.5 hours after her last known well time, and is therefore not a TPA candidate. Exam does not appear to be consistent with a stroke, as she moves 4 extremities in response to pinch and painful stimuli, and she is actively resisting range of motion in her left arm. Nevertheless, angiographic imaging is recommended by stroke neurology, Dr. Sharri Rosa Currently, the CT angiogram is down because of scheduled maintenance, therefore, the patient is an MRI, as recommended by stroke neurology. Screening laboratory studies reviewed and appreciated. Urinalysis and x-ray of the chest from a few days ago were not consistent with infectious etiology. The hospital physician, Dr. Sinclair will admit patient to the medical service, this is very unlikely to be a large vessel occlusion, or basilar thrombus. MR demonstrates basilar thrombus, we will discuss with interventional neuroradiology to determine appropriate plan of care. I had extensive discussion with the patient's family, to discuss goals of care, advanced directives. Currently, the patient is presumably full code, however, family and I talked about complications of CPR and intubation, and they're considering advanced directives Will defer to the inpatient team to follow-up the urinalysis. Critical care attestation.: If time is entered above; I have spent that time in minutes in the direct care of this critically ill patient, excluding procedure time. ED Disposition Clinical Impression: Altered mental status, unspecified, Dementia Disposition: 09 OP ADMIT IP TO THIS HOSP Is pt being admited?: Yes Does the pt Need Aspirin: Yes Condition: Fair
--- NOTE | 2019-01-24 06:30 | Cat Scan Report ---
CT head/brain wo con INDICATION / CLINICAL INFORMATION: neuro deficits <6hrs or sx present upon awakening. TECHNIQUE: All CT scans at this location are performed using CT dose reduction for ALARA by means of automated e xposure control. COMPARISON: 01/20/2019 FINDINGS: Cerebral atrophy and small vessel disease is present. No mass or mass effect is seen. There is no makenzie dence of intracranial hemorrhage. No obvious new large area of infarction is identified. Visualized p aranasal sinuses are clear IMPRESSION: Diffuse cerebral atrophy and small vessel disease. No acute findings or interval change from 9. This is a code stroke patient and results called to the emergency room at 0523 hours on 01/24/2019 Signer Name: Royce Little MD FACR Signed: 01/24/2019 6:26 AM Workstation Name: [id number]
[2019-01-24] MEDS ORDERED: NACL 0.9% 500 ML 500 ML IV ONE (09:08)
[2019-01-24] MEDS ORDERED: ASPIRIN PR ONE (09:13)
--- NOTE | 2019-01-24 10:52 | History and Physical Report ---
History of Present Illness Date of examination: 01/24/19 Date of admission: 01/24/19 09:13 Chief complaint: Weakness, witnessed seizure and confusion History of present illness: 68-year-old female patient with significant history of dementia and recurrent falls COPD presented to emergency room with generalized weakness and confusion. Family also reports witnessed seizure like activity, patient was evaluated by the neurologist , who indicated that patient was not a candidate for TPA. CT brain without contrast was negative for acute abnormality, Extensive neuro workup is in progress. When I evaluated the patient, patient was closing eyes, opening on verbal c ommands, noncommunicative, not in acute distress Patient has past medical history of hemorrhagic CVA, dementia and COPD Past History Past Medical History: COPD, hypertension, other (Dementia) Past Surgical History: No surgical history Social history: denies: smoking, alcohol abuse Family history: hypertension Medications and Allergies Allergies Allergy/AdvReac Type Severity Reaction Status Date / Time No Known Allergies Allergy Verified 03/15/15 07:34 Home Medications Medication Instructions Recorded Confirmed Last Taken Type Atorvastatin [Lipitor Tab] 80 mg PO DAILY 01/24/19 01/24/19 01/22/19 History 80 mg amLODIPine [Norvasc] 5 mg PO DAILY MDD 5 mg 01/24/19 01/24/19 01/22/19 History 5 mg Review of Systems ROS unobtainable: due to mental status Exam - Constitutional Vitals: Temp Pulse Resp BP Pulse Ox 99.5 F 83 18 158/96 96 01/24/19 06:41 01/24/19 10:46 01/24/19 10:46 01/24/19 10:46 01/24/19 10:46 General appearance: Present: mild distress, other (noncommunicative) - EENT Eyes: Present: PERRL ENT: other (normal exam) - Neck Neck: Present: supple. Absent: enlarged thyroid - Respiratory Respiratory effort: normal Respiratory: bilateral: diminished, negative: rales, rhonchi, wheezing - Cardiovascular Rhythm: regular Heart Sounds: Present: S1 & S2. Absent: systolic murmur, diastolic murmur - Extremities Extremities: no ischemia, No edema - Abdominal General gastrointestinal: Present: soft, non-tender - Integumentary Integumentary: Present: clear, warm - Musculoskeletal Musculoskeletal: generalized weakness - Psychiatric Psychiatric: other (noncommunicative) - Neurologic Neurologic: other (noncommunicative) Results - Labs CBC & Chem 7: 01/24/19 05:32 01/24/19 05:32 Labs: Abnormal lab results 01/24/19 01/24/19 01/24/19 Range/Units 05:32 05:32 05:32 Hgb 15.3 H (10.1-14.3) gm/dl Hct 46.0 H (30.3-42.9) % Lymph % (Auto) 8.5 L (13.4-35.0) % Lymph # 0.8 L (1.2-5.4) K/mm3 Seg Neutrophils % 88.0 H (40.0-70.0) % Seg Neutrophils # 7.9 H (1.8-7.7) K/mm3 Creatinine 0.6 L (0.7-1.2) mg/dL Glucose 190 H (65-100) mg/dL Total Creatine Kinase 919 H (30-135) units/L Assessment and Plan - Patient Problems (1) Acute metabolic encephalopathy Current Visit: Yes Status: Acute Plan to address problem: Multifactorial, probably secondary to seizure, CVA, dementia Underlying disease process, supportive care (2) Acute CVA (cerebrovascular accident) Current Visit: Yes Status: Acute Plan to address problem: Not a candidate for TPA, neuro workup is in progress Follow MRI/MRA carotid Doppler CTA head and neck Aspirin and statin, PT OT ST Rehabilitation, neurology consult (3) Dementia Current Visit: Yes Status: Acute Plan to address problem: Supportive care, neurology consult if needed (4) Hypertension Onset Date: 03/15/15 Current Visit: No Status: Chronic Qualifiers: Hypertension type: essential hypertension Qualified Code(s): I10 - Essential (primary) hypertension Plan to address problem: Closely monitor blood pressures, permissive hypertension per stroke protocol When necessary hydralazine (5) Seizures Current Visit: Yes Status: Acute Plan to address problem: Witnessed seizure by family; Seizure precautions, antiepileptic medications, Ativan as needed Follow neuro workup, neurology consult (6) DVT prophylaxis Current Visit: Yes Status: Acute Plan to address problem: Lovenox (7) Full code status Current Visit: Yes Status: Acute
[2019-01-24] MEDS ORDERED: NORMODYNE IV PRN (10:56)
[2019-01-24] MEDS ORDERED: PROAIR IH PRN (11:00)
--- NOTE | 2019-01-24 11:03 | XRay Report ---
CHEST 1 VIEW INDICATION: Altered mental status, weakness. COMPARISON: 01/20/2019 FINDINGS: Support devices: None. Heart: Heart size is borderline. The aorta is mildly ectatic with calcifications. Lungs/Pleura: The lungs are generally clear. There is minor focal scarring in the lingula. Mild centr al pulmonary venous congestion is also identified. No pleural effusion or pneumothorax. Additional findings: None. IMPRESSION: Borderline heart size. Mild central pulmonary venous congestion. Signer Name: Heber Mendoza Jr, MD Signed: 01/24/2019 10:59 AM Workstation Name: [id number]
[2019-01-24] MEDS ORDERED: PROVENTIL IH PRN (11:15)
--- NOTE | 2019-01-24 11:26 | Magnetic Resonance Report ---
MR MRA/MRV neck wo/w con INDICATION / CLINICAL INFORMATION: 68 years Female; tia vs sz. TECHNIQUE: 2-D time of flight performed prior to contrast. 3-D evaluation performed following IV cont rast administration. NASCET criteria used for stenosis evaluation. COMPARISON: None available. FINDINGS: ARCH: Normal aortic arch branching suggested. CAROTID ARTERIES: The visualized common and internal carotid arteries are widely patent. VERTEBRAL ARTERIES: Codominant vertebral system seen. Short segment narrowing is seen at the origin o f the left vertebral artery-moderate in degree. Mild, short segment narrowing seen in the left verteb ral artery where it begins to pass around the arch of C1. IMPRESSION: Narrowing seen in the left vertebral artery, as described above. Signer Name: Gaetano Black MD, III Signed: 01/24/2019 11:21 AM Workstation Name: [id number]
--- NOTE | 2019-01-24 11:32 | Magnetic Resonance Report ---
MR brain wo con INDICATION / CLINICAL INFORMATION: 68 years Female; tia vs sz. TECHNIQUE: Multiplanar, multisequence MR images of the brain were obtained. COMPARISON: CT - 01/24/2019 FINDINGS: BRAIN / INTRACRANIAL CONTENTS: Small focus of increased diffusion signal seen in the white matter of the left occipital lobe-this finding is not positive on ADC map. Findings may be related to T2 shine through artifact from significant white matter disease. Moderate cerebral and mild cerebellar atrophy. There may be an old area of hemorrhage in the left ovi gliocapsular region, near the head of the left caudate. There are extensive, confluent areas of increased signal intensity on FLAIR imaging in the white agnes er of the cerebral hemispheres. These are nonspecific findings and may be related to microangiopathy (hypertension, diabetes, atherosclerosis), given the patient's age. Significant pontine disease note d. Etiologies such as CADASILs, radiation therapy, [place]'s etc. might be considered as well. Gradient echo imaging demonstrates multiple foci of decreased T2 signal intensity seen throughout the basal ganglia and cerebral hemispheres. Findings are also seen in the left cerebellar hemisphere. Am yloid angiopathy, hypertensive microhemorrhages, multiple cavernous malformations, etc. may be consid ered. Otherwise, no acute ischemia, acute hemorrhage, or hydrocephalus. CRANIOCERVICAL JUNCTION: No significant abnormality. VASCULAR FLOW-VOIDS: No significant abnormality. ORBITS: No significant abnormality of visualized orbits. SINUSES / MASTOIDS: There is complete opacification of the mastoid air cells on the right. Mild mucos al thickening seen on the left. Mild mucosal thickening also noted in the ethmoids. ADDITIONAL FINDINGS: None. IMPRESSION: 1. No focal mass, acute hemorrhage, hydrocephalus, or acute ischemia. 2. Significant white matter disease as described above. Signer Name: Gaetano Black MD, III Signed: 01/24/2019 11:28 AM Workstation Name: [id number]
[2019-01-24] MEDS ORDERED: ASPIRIN PR STA (11:36)
[2019-01-24 11:47] LABS: Amorphous Crystals,Urine Few; Bilirubin,Urine NEG (Negative); Blood,Urine NEG (Negative); Color,Urine Straw (Yellow); Mucus,Urine FEW /HPF; Protein,Urine <15 mg/dL mg/dL (Negative); Urobilinogen,Urine < 2.0 mg/dL (<2.0)
[2019-01-24] MEDS ORDERED: PEPCID IV ONE (12:07)
[2019-01-24] MEDS ORDERED: LOVENOX SUB-Q ONE (12:07)
[2019-01-24] MEDS: PEPCID IV SCH (12:27)
[2019-01-24] MEDS: LOVENOX SUB-Q SCH (12:27)
[2019-01-24 13:35] LABS: Chol/HDL Ratio 2.22 %
[2019-01-24] MEDS: CATAPRES PO SCH ×2 (13:58→21:53)
[2019-01-24] MEDS: APRESOLINE PO SCH ×2 (13:58→21:53)
[2019-01-24] MEDS ORDERED: CATAPRES PO SCH (14:00)
--- NOTE | 2019-01-24 15:29 | Vascular Lab Report ---
BILATERAL CAROTID DOPPLER ULTRASOUND INDICATION : cva TECHNIQUE: Grayscale and color Doppler imaging performed through the neck. COMPARISON: None FINDINGS: Right: There is minimal partially calcified plaque in the proximal right ICA.. Peak systolic veloci ty in the CCA is 67 cm/s with end-diastolic velocity of 12 cm/s. Peak systolic velocity in the proxim al ICA is 63 cm/s with end-diastolic velocity of 11 cm/s. ICA to CCA ratio is less than 2. There is a ntegrade flow in the ECA and the vertebral artery. Left: There is minimal partially calcified plaque in the left carotid bulb.. Peak systolic velocity i n the CCA is 95 cm/s with end-diastolic velocity of 17 cm/s. Peak systolic velocity in the proximal I CA is 62 cm/s with end-diastolic velocity of 11 cm/s. ICA to CCA ratio is less than 2. There is anteg rade flow in the ECA and the vertebral artery. IMPRESSION: No hemodynamically significant stenosis by NASCET criteria. Signer Name: Heber Mendoza Jr, MD Signed: 01/24/2019 3:24 PM Workstation Name: [id number]
[2019-01-24] MEDS ORDERED: SODIUM BICARBONATE FEEDTUBE PRN (18:38)
[2019-01-24] MEDS ORDERED: PANCREAZE DR 10,500 UNIT FEEDTUBE PRN (18:38)
[2019-01-24] MEDS ORDERED: SIMPLE SYRUP FEEDTUBE PRN ×2 (18:38)
[2019-01-24] MEDS ORDERED: APRESOLINE IV PRN (18:39)
[2019-01-24] MEDS ORDERED: APRESOLINE IV ONE (18:39)
[2019-01-24] MEDS: NACL 0.9% 1000 ML 1,000 ML IV SCH (19:33)
[2019-01-24] MEDS ORDERED: TYLENOL PO PRN (23:07)
[2019-01-25] MEDS: APRESOLINE PO SCH ×3 (06:01→21:23)
[2019-01-25] MEDS: NACL 0.9% 1000 ML 1,000 ML IV SCH ×2 (06:01→21:21)
[2019-01-25] MEDS: CATAPRES PO SCH ×3 (08:38→21:23)
[2019-01-25] MEDS ORDERED: ECOTRIN PO SCH (10:00)
[2019-01-25] MEDS ORDERED: LOVENOX SUB-Q SCH (10:00)
--- NOTE | 2019-01-25 11:06 | Progress Note ---
Assessment and Plan Assessment and plan: -- Acute metabolic encephalopathy Current Visit: Yes Status: Acute Multifactorial, probably secondary to seizure, CVA, dementia Underlying disease process, supportive care -- Acute CVA (cerebrovascular accident) Current Visit: Yes Status: Acute Not a candidate for TPA, neuro workup so far is negativ neg sofar , possible TIA, acute CVA ruled out -- Dementia/memory loss Current Visit: Yes Status: Acute Supportive care, neurology consult if needed -- Hypertension Current Visit:yes Status: Chronic Closely monitor blood pressures, continue current management When necessary hydralazine --History of cerebral amyloid angiopathy : 2 episodes of bleeding, discontinue aspirin --Seizures Current Visit: Yes Status: Acute Complex partial epilepsy, nonintractable Seizure precautions,keppra, Ativan as needed Neurology evaluation noted and appreciated , follow EEG , no driving --Increasedsomnolence: obstructive sleep apnea outpatient sleep studies --DVT prophylaxis Current Visit: Yes Status: Acute renal Lovenox --Full code status Current Visit: Yes Status: Acute Follow rest of the neuro w/u Physical therapy occupational therapy . 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 Case management; possible home with home health versus subacute rehabilitation When medically stable History Interval history: Patient seen and examined medical records reviewed As per family patient is more alert and awake, atrial bites of breakfast Recognized 1-2 family members No new episodes of seizure Vital signs noted Hospitalist Physical - Constitutional Vitals: Temp Pulse Resp BP Pulse Ox 98.7 F 84 20 158/87 90 01/25/19 05:10 01/25/19 06:01 01/25/19 05:10 01/25/19 08:38 01/25/19 05:10 General appearance: Present: no acute distress, other (sleeping easily.awakens) - EENT Eyes: Present: PERRL, EOM intact - Neck Neck: Present: supple, normal ROM - Respiratory Respiratory effort: normal Respiratory: bilateral: diminished, negative: rales, rhonchi, wheezing - Cardiovascular Rhythm: regular Heart Sounds: Present: S1 & S2 - Extremities Extremities: no ischemia, No edema - Abdominal General gastrointestinal: soft, non-tender, non-distended, normal bowel sounds - Integumentary Integumentary: Present: clear, warm - Psychiatric Psychiatric: other (sleeping,minimal communication) - Neurologic Neurologic: moves all extremities Results - Labs CBC & Chem 7: 01/24/19 05:32 01/24/19 05:32 Labs: Laboratory Last Values WBC 8.9 K/mm3 (4.5-11.0) 01/24/19 05:32 RBC 4.92 M/mm3 (3.65-5.03) 01/24/19 05:32 Hgb 15.3 gm/dl (10.1-14.3) H 01/24/19 05:32 Hct 46.0 % (30.3-42.9) H 01/24/19 05:32 MCV 94 fl (79-97) 01/24/19 05:32 MCH 31 pg (28-32) 01/24/19 05:32 MCHC 33 % (30-34) 01/24/19 05:32 RDW 14.4 % (13.2-15.2) 01/24/19 05:32 Plt Count 214 K/mm3 (140-440) 01/24/19 05:32 Lymph % (Auto) 8.5 % (13.4-35.0) L 01/24/19 05:32 Cedar % (Auto) 2.5 % (0.0-7.3) 01/24/19 05:32 Eos % (Auto) 0.2 % (0.0-4.3) 01/24/19 05:32 Baso % (Auto) 0.8 % (0.0-1.8) 01/24/19 05:32 Lymph # 0.8 K/mm3 (1.2-5.4) L 01/24/19 05:32 Cedar # 0.2 K/mm3 (0.0-0.8) 01/24/19 05:32 Eos # 0.0 K/mm3 (0.0-0.4) 01/24/19 05:32 Baso # 0.1 K/mm3 (0.0-0.1) 01/24/19 05:32 Seg Neutrophils % 88.0 % (40.0-70.0) H 01/24/19 05:32 Seg Neutrophils # 7.9 K/mm3 (1.8-7.7) H 01/24/19 05:32 PT 13.1 Sec. (12.2-14.9) 01/24/19 05:32 INR 1.02 (0.87-1.13) 01/24/19 05:32 APTT 26.4 Sec. (24.2-36.6) 01/24/19 05:32 18.0 Sec. (15.1-19.6) 01/24/19 05:32 Sodium 138 mmol/L (137-145) 01/24/19 05:32 Potassium 4.0 mmol/L (3.6-5.0) 01/24/19 05:32 Chloride 101.5 mmol/L (98-107) 01/24/19 05:32 Carbon Dioxide 28 mmol/L (22-30) 01/24/19 05:32 13 mmol/L 01/24/19 05:32 BUN 11 mg/dL (7-17) 01/24/19 05:32 0.6 mg/dL (0.7-1.2) L 01/24/19 05:32 Estimated GFR > 60 ml/min 01/24/19 05:32 18 % 01/24/19 05:32 Glucose 190 mg/dL (65-100) H 01/24/19 05:32 POC Glucose 100 (70-105) 01/24/19 22:07 Calcium 8.7 mg/dL (8.4-10.2) 01/24/19 05:32 Magnesium 2.00 mg/dL (1.7-2.3) 01/24/19 05:32 919 units/L (30-135) H 01/24/19 05:32 < 0.010 ng/mL (0.00-0.029) 01/24/19 05:32 Triglycerides 58 mg/dL (2-149) 01/24/19 05:32 Cholesterol 127 mg/dL (50-199) 01/24/19 05:32 67 mg/dL (50-130) 01/24/19 05:32 57 mg/dL (40-59) 01/24/19 05:32 2.22 % 01/24/19 05:32 Straw (Yellow) 01/24/19 Unknown Clear (Clear) 01/24/19 Unknown 6.0 (5.0-7.0) 01/24/19 Unknown Ur Specific [place] 1.009 (1.003-1.030) 01/24/19 Unknown <15 mg/dl mg/dL (Negative) 01/24/19 Unknown Neg mg/dL (Negative) 01/24/19 Unknown Neg mg/dL (Negative) 01/24/19 Unknown Neg (Negative) 01/24/19 Unknown Neg (Negative) 01/24/19 Unknown Neg (Negative) 01/24/19 Unknown < 2.0 mg/dL (<2.0) 01/24/19 Unknown Ur Leukocyte Esterase Neg (Negative) 01/24/19 Unknown 1.0 /HPF (0.0-6.0) 01/24/19 Unknown 1.0 /HPF (0.0-6.0) 01/24/19 Unknown U Epithel Cells (Auto) 2.0 /HPF (0-13.0) 01/24/19 Unknown Amorphous Crystals Few 01/24/19 Unknown Few /HPF 01/24/19 Unknown Active Medications - Current Medications Current Medications: Generic Name Dose Route Start Last Admin Trade Name Freq PRN Reason Stop Dose Admin Acetaminophen 650 mg 01/24/19 23:07 01/24/19 23:15 Tylenol PO 650 mg Q4H PRN Administration Pain, Mild (1-3), headache Albuterol 2.5 mg 01/24/19 11:15 Proventil IH QIDRT PRN Shortness Of Breath Lipase/Protease/Amylase 1 each 01/24/19 18:38 Pancreaze 10,500 Unit FEEDTUBE PRN PRN For Clogged Feeding Tube Aspirin 325 mg 01/25/19 10:00 Ecotrin PO QDAY ELYSIA Atorvastatin Calcium 40 mg 01/24/19 22:00 01/24/19 21:53 Lipitor PO 40 mg QHS ELYSIA Administration Clonidine HCl 0.2 mg 01/24/19 14:00 01/25/19 08:38 Catapres PO 0.2 mg TID ELYSIA Administration Enoxaparin Sodium 40 mg 01/24/19 12:00 01/24/19 12:27 Lovenox SUB-Q 40 mg QDAY@1000 ELYSIA Administration Famotidine 20 mg 01/24/19 12:00 01/24/19 12:27 Pepcid IV 20 mg QDAY ELYSIA Administration Hydralazine HCl 50 mg 01/24/19 14:00 01/25/19 06:01 Apresoline PO 50 mg Q8HR ELYSIA Administration Hydralazine HCl 10 mg 01/24/19 18:39 Apresoline IV Q4HR PRN Hypertension Sodium Chloride 1,000 mls @ 100 mls/hr 01/24/19 19:00 01/25/19 06:01 Nacl 0.9% 1000 Ml IV 100 mls/hr DIRECT ELYSIA Administration Labetalol HCl 10 mg 01/24/19 10:56 Normodyne IV Q5MIN PRN to maintain SBP < 180 Simple Syrup 15 ml 01/24/19 18:38 Simple Syrup FEEDTUBE PRN PRN Hypoglycemia Simple Syrup 30 ml 01/24/19 18:38 Simple Syrup FEEDTUBE PRN PRN Hypoglycemia Sodium Bicarbonate 325 mg 01/24/19 18:38 Sodium Bicarbonate FEEDTUBE PRN PRN For Clogged Feeding Tube Sodium Chloride 10 ml 01/24/19 10:56 Sodium Chloride Flush Syringe 10 Ml IV PRN PRN LINE FLUSH
[2019-01-25] MEDS: LOVENOX SUB-Q SCH (11:08)
[2019-01-25] MEDS: PEPCID IV SCH (11:13)
[2019-01-25] MEDS ORDERED: ASPIRIN PO SCH (12:00)
[2019-01-25] MEDS ORDERED: KEPPRA PO SCH (12:15)
[2019-01-25] MEDS: KEPPRA PO SCH ×2 (12:47→21:23)
--- NOTE | 2019-01-25 16:41 | Consultation ---
History of Present Illness Consult date: 01/25/19 Requesting physician: MAYITO PALMER Reason for Consult: seizure, altered mental status Chief complaint: seizure, altered mental status History of present illness: This 68 year old right handed female per daughter at 4 am was on toilet, found later leaning over while on it, stiff all over, jerking she thinks left arm. Placed back in bed kept staring at wall, held head as if headache. Daughter has noted weakness left side for past week. Hx of stroke Mar 2018 with slurring of speech, taken to [facility]. Told some bleeding seen. In 2014 here had bleeding in area of left caudate on CT. MRI shows slightly positive diffusion left radial for occipital horn perhaps T2 shine through since no ADC change. Also GRE positive for amyloid peripherally and centrally, extensive periventricular disease on FLAIR bilaterally. Has bottle of donezepil but not given for past 2 months per daughter since not helping. Has had dementia since her 50's. No 81 mg aspirin for 2 months. Takes atorvastatin 20 mg. Sometimes given B12 unknown dose, magnesium and B complex at times and gogo etimes a spinach or cucumber smoothie. Denies headache or dizziness now. Echo with bubbles negative. Duplex carotids negative. PMH: Medical: hypertension, strokes, hyperlipidemia Surgeries: none SH: cigs in past but none for one year, occasional ETOH in past, MJ in past. , 2 children, 1 stepson, 4 grandchildren alive and well. Able to tell me she worked at [employer] as [employer]. FH: Mother of cerebral aneurysm and had hypertension, nephew with CVA and DM, sister with hypertension, no epilepsy. ROS: no headaches or dizziness usually, some snoring but no pauses, dozes off m uch of day but stays up till 2 am the arises early, daughter plans to try melatonin. No paresthesias. General Physical Exam: General appearance: well developed but overweight early 70's female in NAD, seen with her daughter. HEENT: AT/NC, no bruits. No TMJ click or TMJ or sinus soreness. Neck: supple, no bruits. Heart: no murmur or extra sounds. Extremities: 2+ DPs, no edema. Neurologic Exam: Mental Status: oriented to winter, not month or year or day, gives Pres after D onald ___, gives D[employer] WORK[employer] as Kamran, delayed responses and sleepy, can't do 3 of 3 objects task, can't do calculations not even 5+7, can't spell WORLD, abstracts ok, no right-left confusion, names pen and tip of pen. Cranial Nerves: left field cut to threat, left slightly>right pupil but both react to L and A, no Pita's, no facial weakness, Sandoval midline, positive gags but crowded palate, shrugs are 5, tongue protrudes midline. Cerebellar: finger to nose dysmetric right>left, heel to gaytan ok right but poor left. Sensory: intact to primary modalities and DSS. Motor UEs: left drift but lifts to 90 degrees, mri tech right 4+ and left 4-, Michelle slow jarred left. Motor LEs: won't lift legs off bed. IPs 5 right and 4- left, quads with knee supported are 5- right and 4- left, anterior tibials 2+ right and 3+ left (apraxic and won't do a steady pull), gastrocs 4+ right and 5- left. Reflexes: jaw jerk and palmomental are negative, snout is positive. Triceps, biceps and brachioradialis are 2. Gayatri's are positive. Knee jerks are 2+ and ankle jerks are 2+ right and 2 left. Toes are upgoing bilaterally to Babinski testing. Past History Past Medical History: COPD, hypertension, other (Dementia) Past Surgical History: No surgical history Social history: denies: smoking, alcohol abuse Family history: hypertension Medications and Allergies Allergies Allergy/AdvReac Type Severity Reaction Status Date / Time No Known Allergies Allergy Verified 03/15/15 07:34 Home Medications Medication Instructions Recorded Confirmed Last Taken Type Atorvastatin [Lipitor Tab] 80 mg PO DAILY 01/24/19 01/24/19 01/22/19 History 80 mg amLODIPine [Norvasc] 5 mg PO DAILY MDD 5 mg 01/24/19 01/24/19 01/22/19 History 5 mg Active Meds: Active Medications Acetaminophen (Tylenol) 650 mg PO Q4H PRN PRN Reason: Pain, Mild (1-3), headache Last Admin: 01/24/19 23:15 Dose: 650 mg Documented by: Albuterol (Proventil) 2.5 mg IH QIDRT PRN PRN Reason: Shortness Of Breath Lipase/Protease/Amylase (Mayra Jerome 10,500 Unit) 1 each FEEDTUBE PRN PRN PRN Reason: For Clogged Feeding Tube Atorvastatin Calcium (Lipitor) 40 mg PO QHS [facility] Last Admin: 01/24/19 21:53 Dose: 40 mg Documented by: Clonidine HCl (Catapres) 0.2 mg PO TID [facility] Last Admin: 01/25/19 15:33 Dose: 0.2 mg Documented by: Enoxaparin Sodium (Lovenox) 40 mg SUB-Q QDAY@1000 [facility] Last Admin: 01/25/19 11:08 Dose: Not Given Documented by: Famotidine (Pepcid) 20 mg IV QDAY [facility] Last Admin: 01/25/19 11:13 Dose: 20 mg Documented by: Hydralazine HCl (Apresoline) 50 mg PO Q8HR [facility] Last Admin: 01/25/19 15:33 Dose: 50 mg Documented by: Hydralazine HCl (Apresoline) 10 mg IV Q4HR PRN PRN Reason: Hypertension Sodium Chloride (Nacl 0.9% 1000 Ml) 1,000 mls @ 100 mls/hr IV DIRECT [facility] Last Admin: 01/25/19 06:01 Dose: 100 mls/hr Documented by: Labetalol HCl (Normodyne) 10 mg IV Q5MIN PRN PRN Reason: to maintain SBP < 180 Levetiracetam (Keppra) 1,000 mg PO BID [facility] Last Admin: 01/25/19 12:47 Dose: 1,000 mg Documented by: Simple Syrup (Simple Syrup) 15 ml FEEDTUBE PRN PRN PRN Reason: Hypoglycemia Simple Syrup (Simple Syrup) 30 ml FEEDTUBE PRN PRN PRN Reason: Hypoglycemia Sodium Bicarbonate (Sodium Bicarbonate) 325 mg FEEDTUBE PRN PRN PRN Reason: For Clogged Feeding Tube Sodium Chloride (Sodium Chloride Flush Syringe 10 Ml) 10 ml IV PRN PRN PRN Reason: LINE FLUSH Physical Examination - Vital Signs Vital Signs: Vital Signs Pulse Resp BP Pulse Ox 97 H 21 165/98 95 01/24/19 05:30 01/24/19 05:30 01/24/19 05:30 01/24/19 05:30 Results - Laboratory Findings CBC and BMP: 01/24/19 05:32 01/24/19 05:32 Abnormal Lab Findings: Abnormal Labs 01/24/19 01/24/19 01/24/19 05:32 05:32 05:32 Hgb 15.3 H Hct 46.0 H Lymph % (Auto) 8.5 L Lymph # 0.8 L Seg Neutrophils % 88.0 H Seg Neutrophils # 7.9 H Creatinine 0.6 L Glucose 190 H Hemoglobin A1c Total Creatine Kinase 919 H 01/25/19 08:30 Hgb Hct Lymph % (Auto) Lymph # Seg Neutrophils % Seg Neutrophils # Creatinine Glucose Hemoglobin A1c 6.3 H Total Creatine Kinase Assessment and Plan Impression: 1. Complex partial epilepsy, nonintractable 2. Memory loss 3. Cerebral amyloid angiopathy 4. Daytime somnolence Plan: 1. EEG. 2. Do not restart donepezil since it could cause seizures. Could try memantine as outpatient. 3. CTAs of head and neck pending (scanner down). Could do MRAs of head and neck with dye. 4. Memory labs and ammonia 5. May need sleep apnea testing as outpatient but unclear she would tolerate CPAP. 6. Stopped aspirin since she has peripheral amyloid angiopathy in brain and by history 2 different episodes of bleeding. 50 min spent including review of hundreds of MRI images. Thank you for an interesting consultation on this unfortunate early 's lady. Signing off, call for any unusual results. Will provide EEG report later.
--- NOTE | 2019-01-25 20:28 | Electroencephalogram Report ---
Electroencephalogram EEG Date of exam: 01/25/19 History: focal jerking ?left hand per family then staring at wall, weak left side past week, headache Impression: This 20 min digital portable EEG has 19 channels one of which is EKG showing occasional PVC, in a 22 min recording. There is some artifact at F7. Alpha is not clearly seen. There is triphasic activity bilaterally. No clear sleep is recorded. Slower right frontotemporal activity at elapsed timestamp 00:06:25 in middle of page. No epileptiform activity is seen. Description: The waking background shows an appropriate organization with well-defined anterior posterior voltage and frequency gradients. Posteriorly, there is a well-developed alpha rhythm of [ ] Hz which is symmetrical and bilaterally reactive. Anteriorly, there is a pattern of lower voltage and slightly irregular theta and beta range frequencies. During drowsiness, there is attenuation of the background rhythms. The sleep background shows normal organization with well-formed sleep spindles and vertex waves which are synchronous and symmetrical. Throughout, the recording there are no epileptiform abnormalities, focal or lateralizing features, or significant interhemispheric findings. Interpretation: Moderately abnormal wake/drowsy due to triphasic waves, indicative of metabolic encephalopathy such as hepatic type. Mild slowing on the right should be correlated with imaging. This EEG does not exclude epilepsy of partial onset. Up to 4 EEGs over several months may be needed to capture interictal epileptiform activity.
[2019-01-26] MEDS: APRESOLINE PO SCH ×3 (05:34→23:05)
[2019-01-26] MEDS: NACL 0.9% 1000 ML 1,000 ML IV SCH ×2 (05:45→18:19)
[2019-01-26 06:43] LABS: Alanine Aminotransferase 14 units/L (7-56); Albumin 3.1 g/dL (3.9-5); BUN/Creatinine Ratio 13; Blood Urea Nitrogen 9 mg/dL (7-17); Calcium 8.5 mg/dL (8.4-10.2); Hemolysis Index 41
[2019-01-26] MEDS: CATAPRES PO SCH ×2 (10:39→15:00)
[2019-01-26] MEDS: KEPPRA PO SCH ×2 (10:40→23:05)
[2019-01-26] MEDS: PEPCID IV SCH (10:40)
[2019-01-26] MEDS: LOVENOX SUB-Q SCH (11:00)
--- NOTE | 2019-01-26 11:52 | Progress Note ---
Assessment and Plan Assessment and plan: --Seizures Current Visit: Yes Status: Acute Complex partial epilepsy, nonintractable Seizure precautions,keppra, Ativan as needed Neurology evaluation noted and appreciated , follow EEG , no driving -- Acute metabolic encephalopathy Current Visit: Yes Status: Acute Multifactorial, probably secondary to seizure, CVA, dementia Underlying disease process, supportive care --Possible TIA [ Acute CVA ruled out] Current Visit: Yes Status: Acute Not a candidate for TPA, neuro workup so far is negativ neg sofar , possible TIA, acute CVA ruled out No ASA per neurology due to h/o cerebral bleed -- Dementia/memory loss Current Visit: Yes Status: Acute Supportive care, neurology consult if needed -- Hypertension Current Visit:yes Status: Chronic Closely monitor blood pressures, continue current management When necessary hydralazine --History of cerebral amyloid angiopathy : 2 episodes of bleeding, discontinue aspirin --Increasedsomnolence: obstructive sleep apnea outpatient sleep studies --DVT prophylaxis Current Visit: Yes Status: Acute renal Lovenox --Full code status Current Visit: Yes Status: Acute Physical therapy occupational therapy . Plan of care is reviewed with the patient's multiple family members at the bedside mainly the daughter who is her salesperson china and glassware DC planning.Case management; possible home with home health versus subacute rehabilitation When medically stable . History Interval history: Patient seen and examined Feels slightly better,Minimally communicative Vital signs noted Hospitalist Physical - Constitutional Vitals: Temp Pulse Resp BP Pulse Ox 97.3 F L 58 L 20 150/79 95 01/26/19 04:18 01/26/19 10:39 01/26/19 04:18 01/26/19 10:39 01/26/19 10:00 General appearance: Present: no acute distress, well-nourished, obese, other (sleeping easily.awakens) - EENT Eyes: Present: PERRL, EOM intact - Neck Neck: Present: supple, normal ROM - Respiratory Respiratory effort: normal Respiratory: bilateral: diminished, negative: rales, rhonchi, wheezing - Cardiovascular Rhythm: regular Heart Sounds: Present: S1 & S2 - Extremities Extremities: no ischemia, No edema - Abdominal General gastrointestinal: non-tender, non-distended, normal bowel sounds - Integumentary Integumentary: Present: clear, warm - Psychiatric Psychiatric: cooperative, other (lethergy) - Neurologic Neurologic: other (residual weakness) Results - Labs CBC & Chem 7: 01/24/19 05:32 01/26/19 05:53 Labs: Laboratory Last Values WBC 8.9 K/mm3 (4.5-11.0) 01/24/19 05:32 RBC 4.92 M/mm3 (3.65-5.03) 01/24/19 05:32 Hgb 15.3 gm/dl (10.1-14.3) H 01/24/19 05:32 Hct 46.0 % (30.3-42.9) H 01/24/19 05:32 MCV 94 fl (79-97) 01/24/19 05:32 MCH 31 pg (28-32) 01/24/19 05:32 MCHC 33 % (30-34) 01/24/19 05:32 RDW 14.4 % (13.2-15.2) 01/24/19 05:32 Plt Count 214 K/mm3 (140-440) 01/24/19 05:32 Lymph % (Auto) 8.5 % (13.4-35.0) L 01/24/19 05:32 [place] % (Auto) 2.5 % (0.0-7.3) 01/24/19 05:32 Eos % (Auto) 0.2 % (0.0-4.3) 01/24/19 05:32 Baso % (Auto) 0.8 % (0.0-1.8) 01/24/19 05:32 Lymph # 0.8 K/mm3 (1.2-5.4) L 01/24/19 05:32 [place] # 0.2 K/mm3 (0.0-0.8) 01/24/19 05:32 Eos # 0.0 K/mm3 (0.0-0.4) 01/24/19 05:32 Baso # 0.1 K/mm3 (0.0-0.1) 01/24/19 05:32 Seg Neutrophils % 88.0 % (40.0-70.0) H 01/24/19 05:32 Seg Neutrophils # 7.9 K/mm3 (1.8-7.7) H 01/24/19 05:32 PT 13.1 Sec. (12.2-14.9) 01/24/19 05:32 INR 1.02 (0.87-1.13) 01/24/19 05:32 APTT 26.4 Sec. (24.2-36.6) 01/24/19 05:32 18.0 Sec. (15.1-19.6) 01/24/19 05:32 Sodium 142 mmol/L (137-145) 01/26/19 05:53 Potassium 4.0 mmol/L (3.6-5.0) 01/26/19 05:53 Chloride 109.4 mmol/L (98-107) H 01/26/19 05:53 Carbon Dioxide 23 mmol/L (22-30) 01/26/19 05:53 14 mmol/L 01/26/19 05:53 BUN 9 mg/dL (7-17) 01/26/19 05:53 0.7 mg/dL (0.7-1.2) 01/26/19 05:53 Estimated GFR > 60 ml/min 01/26/19 05:53 13 % 01/26/19 05:53 Glucose 117 mg/dL (65-100) H 01/26/19 05:53 POC Glucose 100 (70-105) 01/24/19 22:07 6.3 % (4-6) H 01/25/19 08:30 Calcium 8.5 mg/dL (8.4-10.2) 01/26/19 05:53 Magnesium 2.00 mg/dL (1.7-2.3) 01/24/19 05:32 0.70 mg/dL (0.1-1.2) 01/26/19 05:53 AST 25 units/L (5-40) 01/26/19 05:53 ALT 14 units/L (7-56) 01/26/19 05:53 54 units/L (35-129) 01/26/19 05:53 46.0 umol/L (25-60) 01/25/19 15:35 919 units/L (30-135) H 01/24/19 05:32 < 0.010 ng/mL (0.00-0.029) 01/24/19 05:32 6.3 g/dL (6.3-8.2) 01/26/19 05:53 3.1 g/dL (3.9-5) L 01/26/19 05:53 1.0 % 01/26/19 05:53 Triglycerides 58 mg/dL (2-149) 01/24/19 05:32 Cholesterol 127 mg/dL (50-199) 01/24/19 05:32 67 mg/dL (50-130) 01/24/19 05:32 57 mg/dL (40-59) 01/24/19 05:32 2.22 % 01/24/19 05:32 Vitamin B12 765.4 pg/mL (211-911) 01/25/19 15:35 16.61 ng/mL (7.3-26.0) 01/25/19 15:35 TSH 4.640 mlU/mL (0.270-4.200) H 01/25/19 15:35 Free T4 1.19 ng/dL (0.76-1.46) 01/25/19 15:35 Straw (Yellow) 01/24/19 Unknown Clear (Clear) 01/24/19 Unknown 6.0 (5.0-7.0) 01/24/19 Unknown Ur Specific [place] 1.009 (1.003-1.030) 01/24/19 Unknown <15 mg/dl mg/dL (Negative) 01/24/19 Unknown Neg mg/dL (Negative) 01/24/19 Unknown Neg mg/dL (Negative) 01/24/19 Unknown Neg (Negative) 01/24/19 Unknown Neg (Negative) 01/24/19 Unknown Neg (Negative) 01/24/19 Unknown < 2.0 mg/dL (<2.0) 01/24/19 Unknown Ur Leukocyte Esterase Neg (Negative) 01/24/19 Unknown 1.0 /HPF (0.0-6.0) 01/24/19 Unknown 1.0 /HPF (0.0-6.0) 01/24/19 Unknown U Epithel Cells (Auto) 2.0 /HPF (0-13.0) 01/24/19 Unknown Amorphous Crystals Few 01/24/19 Unknown Few /HPF 01/24/19 Unknown Active Medications - Current Medications Current Medications: Generic Name Dose Route Start Last Admin Trade Name Freq PRN Reason Stop Dose Admin Acetaminophen 650 mg 01/24/19 23:07 01/24/19 23:15 Tylenol PO 650 mg Q4H PRN Administration Pain, Mild (1-3), headache Albuterol 2.5 mg 01/24/19 11:15 Proventil IH QIDRT PRN Shortness Of Breath Lipase/Protease/Amylase 1 each 01/24/19 18:38 Pancreantonio [place] 10,500 Unit FEEDTUBE PRN PRN For Clogged Feeding Tube Atorvastatin Calcium 40 mg 01/24/19 22:00 01/25/19 21:23 Lipitor PO 40 mg QHS ELYSIA Administration Clonidine HCl 0.2 mg 01/24/19 14:00 01/26/19 10:39 Catapres PO 0.2 mg TID ELYSIA Administration Enoxaparin Sodium 40 mg 01/24/19 12:00 01/25/19 11:08 Lovenox SUB-Q Not Given QDAY@1000 ELYSIA Famotidine 20 mg 01/24/19 12:00 01/26/19 10:40 Pepcid IV 20 mg QDAY ELYSIA Administration Hydralazine HCl 50 mg 01/24/19 14:00 01/26/19 05:34 Apresoline PO 50 mg Q8HR ELYSIA Administration Hydralazine HCl 10 mg 01/24/19 18:39 Apresoline IV Q4HR PRN Hypertension Sodium Chloride 1,000 mls @ 100 mls/hr 01/24/19 19:00 01/26/19 05:45 Nacl 0.9% 1000 Ml IV 100 mls/hr DIRECT ELYSIA Administration Labetalol HCl 10 mg 01/24/19 10:56 Normodyne IV Q5MIN PRN to maintain SBP < 180 Levetiracetam 1,000 mg 01/25/19 12:55 01/26/19 10:40 Keppra PO 1,000 mg BID ELYSIA Administration Simple Syrup 15 ml 01/24/19 18:38 Simple Syrup FEEDTUBE PRN PRN Hypoglycemia Simple Syrup 30 ml 01/24/19 18:38 Simple Syrup FEEDTUBE PRN PRN Hypoglycemia Sodium Bicarbonate 325 mg 01/24/19 18:38 Sodium Bicarbonate FEEDTUBE PRN PRN For Clogged Feeding Tube Sodium Chloride 10 ml 01/24/19 10:56 Sodium Chloride Flush Syringe 10 Ml IV PRN PRN LINE FLUSH Nutrition/Malnutrition Assess - Dietary Evaluation Nutrition/Malnutrition Findings: Nutrition Notes Start: 01/25/19 14:51 Freq: Status: Active Protocol: Document 01/25/19 14:51 RM (Rec: 01/25/19 15:02 RM [id number]) Nutrition Notes Need for Assessment generated from: MD Order Initial or Follow up Assessment Current Diagnosis COPD,Hypertension,Stroke Other Pertinent Diagnosis Dementia, Acute encephalopathy , Seizures Current Diet GI soft Labs/Tests Reviewed Pertinent Medications Reviewed Height 5 ft 6 in Weight 76.5 kg [place] Body Weight (kg) 59.09 BMI 27.2 Subjective/Other Information Consulted for TF recommendation. Screened for skin risk. Jamal 16 points. Per nurse pt family refused placement of dobhoff and diet was advanced. Nurse also stated that pt did not eat anything yesterday but ate 25% of her meals today . Percent of energy/protein needs met: 30%/26% Burn Absent Trauma Absent #1 Nutrition Diagnosis Inadequate oral intake Etiology dementia, acute encephalopathy As Evidenced by Signs and Symptoms nurse statement that pt ate 25 % of her meals today Is patient on ventilator? No Is Patient Ambulatory and/or Out of Bed Yes REE-([place]-St. Jeor-ambulatory/OOB) [ 1692.275 NUTR.MSJOOB] Calculation Used for Recommendations [place]-St Jeor Additional Notes Protein Needs: 77-92g (1-1.2g/ kg) Fluid Needs: 1 ml/kcal Nutrition Intervention Change Diet Order: Continue current Add Supplement/Snack (indicate name/kcal Ensure Enlive 1 daily /protein ) Provides kCal: 350 Provides Protein (gm) 20 Goal #1 Meet at least 75% of calorie and protein needs via PO and ONS intakes Anticipated Discharge Needs: Unable to determine at this time Follow-Up By: 01/27/19 Additional Comments Follow for PO and ONS intakes
--- NOTE | 2019-01-26 17:44 | Cat Scan Report ---
CTA head with and without IV contrast. CLINICAL HISTORY: Altered mental status, strokelike symptoms. Technique: Multiple contiguous postcontrast CT images of the head were obtained at 0.63 mm intervals. 3 plane MIP reconstructions were obtained. Precontrast localizing images were also performed. CT scan s at this location are performed using the CT dose reduction for SwitchForce by means of automated exposure control. FINDINGS: There is mild atherosclerotic calcification involving the distal internal carotid arteries at. However, there is no significant stenosis by NASCET criteria. The remaining visualized vessels al so demonstrate appropriate caliber without significant focal stenosis at. 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 There is also mild hypoplasia of the distal right vertebral artery. However, there is no significant focal narrowing of the vertebral basilar system. Furthermore, there is no CT evidence of intracranial aneurysm. There is developmental hypoplasia of the left transverse and sigmoid sinuses. There is notable scattered opacification of t he right mastoid air cells. IMPRESSION: There is mild calcification involving distal internal carotid arteries. However, there is no signific ant focal stenosis of the visualized intracranial vessels. Signer Name: Deangelo Chambers MD Signed: 01/26/2019 5:39 PM Workstation Name: [id number]
--- NOTE | 2019-01-26 18:00 | Cat Scan Report ---
CTA neck with and without contrast CLINICAL HISTORY: Altered mental status, strokelike symptoms. Technique: Multiple contiguous postcontrast axial CT images of the neck were obtained at 0.625 mm int ervals. 3 plane MIP reconstructions were produced. Precontrast localizing images were also performed. All CT scans at this location are performed using the CT dose reduction for ALARA by means of automa iza exposure control. FINDINGS: There are small foci of calcification involving carotid bifurcation and proximal internal c arotid arteries bilaterally without significant stenosis by NASCET criteria. The beam hardening obscu res the origin of the left vertebral artery. However, there appears to be moderate to stenosis which correlates with the earlier MRA of 01/24/2019. There is mild developmental hypoplasia of the right pam tebral artery. However, there is no significant focal narrowing. IMPRESSION: There is no significant stenosis involving the carotid arteries by NASCET criteria. There appears to be moderate to narrowing at the origin of the left vertebral artery which correlates with the earlier MRA neck. Signer Name: Deangelo Chambers MD Signed: 01/26/2019 5:56 PM Workstation Name: [id number]
[2019-01-27] MEDS: APRESOLINE PO SCH ×3 (05:18→22:48)
[2019-01-27] MEDS: LOVENOX SUB-Q SCH (10:00)
[2019-01-27] MEDS: KEPPRA PO SCH ×2 (10:01→22:47)
[2019-01-27] MEDS: PEPCID IV SCH (10:01)
--- NOTE | 2019-01-27 17:03 | Electroencephalogram Report ---
Electroencephalogram EEG Date of exam: 01/27/19 History: Jerking left arm on admission and staring at wall. Triphasic activity on initial EEG which sometimes can represent nonconvulsive seizures. Medical literature search suggested treating with Katarina and repeating EEG. Description: This 19 channel (including 1 for EKG showing tachycardic) general portable EEG was done with 10/20 international montage in a 20 minute recording. There was no alpha activity. Background activity is at 4 Hz. There is slowing in the right frontotemporal region at timestamp 00:03:15 in epoch 20 and later slowing in the the right frontocentral region at timestamp 00:13:45 in epoch 83 on most of the page. Some triphasics are seen but much less than on previous recording. Interpretation: Moderately abnormal waking/drowsy EEG due to slowing of the background which could be due to a diffuse process such as encephalopathy, and superimposed slowing in the right frontotemporal and right frontocentral region for which correlation with imaging is advised. Lessening of triphasic waves suggests that they were and are an epileptic process.
[2019-01-27] MEDS: BABY ASPIRIN PO SCH (17:04)
--- NOTE | 2019-01-27 17:10 | Progress Note ---
Assessment and Plan Assessment and plan: --Seizures Current Visit: Yes Status: Acute Complex partial epilepsy, nonintractable Seizure precautions,keppra, Ativan as needed Neurology evaluation noted and appreciated , follow EEG , no driving -- Acute metabolic encephalopathy Current Visit: Yes Status: Acute Multifactorial, probably secondary to seizure, CVA, dementia Underlying disease process, supportive care --Possible TIA [ Acute CVA ruled out] Current Visit: Yes Status: Acute Not a candidate for TPA, neuro workup so far is negative possible TIA, No ASA per neurology due to h/o cerebral bleed -- Dementia/memory loss Current Visit: Yes Status: Acute Supportive care, neurology following -- Hypertension Current Visit:yes Status: Chronic Closely monitor blood pressures, continue current management When necessary hydralazine --History of cerebral amyloid angiopathy : h/o 2 episodes of bleeding, discontinue aspirin --Increasedsomnolence: obstructive sleep apnea outpatient sleep studies --DVT prophylaxis Current Visit: Yes Status: Acute renal Lovenox --Full code status Current Visit: Yes Status: Acute Physical therapy occupational therapy . I discussed the case with the case extensively, patient's condition Treatment plan, reports of imaging studies, neurology recommendations As the last discharge planning the different options. The daughter requested discharge with home health and patient is stable Case management will assist DC planning I also discussed with neurologist Dr. Summers Disposition; discharged home with [facility] when medically stable History Interval history: Patient seen and examined medical records reviewed Patient is more alert and awake today, minimally communicative Vital signs noted Hospitalist Physical - Constitutional Vitals: Temp Pulse Resp BP Pulse Ox 99.5 F 99 H 20 169/101 100 01/27/19 12:07 01/27/19 14:00 01/27/19 05:13 01/27/19 14:00 01/27/19 14:32 General appearance: Present: no acute distress, well-nourished, other (noncommunicative) - EENT Eyes: Present: PERRL, EOM intact - Neck Neck: Present: supple, normal ROM - Respiratory Respiratory effort: normal Respiratory: bilateral: diminished, negative: rales, rhonchi, wheezing - Cardiovascular Rhythm: regular Heart Sounds: Present: S1 & S2 - Extremities Extremities: no ischemia, No edema - Abdominal General gastrointestinal: soft, non-tender, non-distended, normal bowel sounds - Integumentary Integumentary: Present: clear, warm - Psychiatric Psychiatric: other (confused at times) - Neurologic Neurologic: other (residual weakness) Results - Labs CBC & Chem 7: 01/24/19 05:32 01/26/19 05:53 Labs: Laboratory Last Values WBC 8.9 K/mm3 (4.5-11.0) 01/24/19 05:32 RBC 4.92 M/mm3 (3.65-5.03) 01/24/19 05:32 Hgb 15.3 gm/dl (10.1-14.3) H 01/24/19 05:32 Hct 46.0 % (30.3-42.9) H 01/24/19 05:32 MCV 94 fl (79-97) 01/24/19 05:32 MCH 31 pg (28-32) 01/24/19 05:32 MCHC 33 % (30-34) 01/24/19 05:32 RDW 14.4 % (13.2-15.2) 01/24/19 05:32 Plt Count 214 K/mm3 (140-440) 01/24/19 05:32 Lymph % (Auto) 8.5 % (13.4-35.0) L 01/24/19 05:32 [place] % (Auto) 2.5 % (0.0-7.3) 01/24/19 05:32 Eos % (Auto) 0.2 % (0.0-4.3) 01/24/19 05:32 Baso % (Auto) 0.8 % (0.0-1.8) 01/24/19 05:32 Lymph # 0.8 K/mm3 (1.2-5.4) L 01/24/19 05:32 [place] # 0.2 K/mm3 (0.0-0.8) 01/24/19 05:32 Eos # 0.0 K/mm3 (0.0-0.4) 01/24/19 05:32 Baso # 0.1 K/mm3 (0.0-0.1) 01/24/19 05:32 Seg Neutrophils % 88.0 % (40.0-70.0) H 01/24/19 05:32 Seg Neutrophils # 7.9 K/mm3 (1.8-7.7) H 01/24/19 05:32 PT 13.1 Sec. (12.2-14.9) 01/24/19 05:32 INR 1.02 (0.87-1.13) 01/24/19 05:32 APTT 26.4 Sec. (24.2-36.6) 01/24/19 05:32 18.0 Sec. (15.1-19.6) 01/24/19 05:32 Sodium 142 mmol/L (137-145) 01/26/19 05:53 Potassium 4.0 mmol/L (3.6-5.0) 01/26/19 05:53 Chloride 109.4 mmol/L (98-107) H 01/26/19 05:53 Carbon Dioxide 23 mmol/L (22-30) 01/26/19 05:53 14 mmol/L 01/26/19 05:53 BUN 9 mg/dL (7-17) 01/26/19 05:53 0.7 mg/dL (0.7-1.2) 01/26/19 05:53 Estimated GFR > 60 ml/min 01/26/19 05:53 13 % 01/26/19 05:53 Glucose 117 mg/dL (65-100) H 01/26/19 05:53 POC Glucose 100 (70-105) 01/24/19 22:07 6.3 % (4-6) H 01/25/19 08:30 Calcium 8.5 mg/dL (8.4-10.2) 01/26/19 05:53 Magnesium 2.00 mg/dL (1.7-2.3) 01/24/19 05:32 0.70 mg/dL (0.1-1.2) 01/26/19 05:53 AST 25 units/L (5-40) 01/26/19 05:53 ALT 14 units/L (7-56) 01/26/19 05:53 54 units/L (35-129) 01/26/19 05:53 46.0 umol/L (25-60) 01/25/19 15:35 919 units/L (30-135) H 01/24/19 05:32 < 0.010 ng/mL (0.00-0.029) 01/24/19 05:32 6.3 g/dL (6.3-8.2) 01/26/19 05:53 3.1 g/dL (3.9-5) L 01/26/19 05:53 1.0 % 01/26/19 05:53 Triglycerides 58 mg/dL (2-149) 01/24/19 05:32 Cholesterol 127 mg/dL (50-199) 01/24/19 05:32 67 mg/dL (50-130) 01/24/19 05:32 57 mg/dL (40-59) 01/24/19 05:32 2.22 % 01/24/19 05:32 Vitamin B12 765.4 pg/mL (211-911) 01/25/19 15:35 16.61 ng/mL (7.3-26.0) 01/25/19 15:35 TSH 4.640 mlU/mL (0.270-4.200) H 01/25/19 15:35 Free T4 1.19 ng/dL (0.76-1.46) 01/25/19 15:35 Straw (Yellow) 01/24/19 Unknown Clear (Clear) 01/24/19 Unknown 6.0 (5.0-7.0) 01/24/19 Unknown Ur Specific [place] 1.009 (1.003-1.030) 01/24/19 Unknown <15 mg/dl mg/dL (Negative) 01/24/19 Unknown Neg mg/dL (Negative) 01/24/19 Unknown Neg mg/dL (Negative) 01/24/19 Unknown Neg (Negative) 01/24/19 Unknown Neg (Negative) 01/24/19 Unknown Neg (Negative) 01/24/19 Unknown < 2.0 mg/dL (<2.0) 01/24/19 Unknown Ur Leukocyte Esterase Neg (Negative) 01/24/19 Unknown 1.0 /HPF (0.0-6.0) 01/24/19 Unknown 1.0 /HPF (0.0-6.0) 01/24/19 Unknown U Epithel Cells (Auto) 2.0 /HPF (0-13.0) 01/24/19 Unknown Amorphous Crystals Few 01/24/19 Unknown Few /HPF 01/24/19 Unknown Active Medications - Current Medications Current Medications: Generic Name Dose Route Start Last Admin Trade Name Freq PRN Reason Stop Dose Admin Acetaminophen 650 mg 01/24/19 23:07 01/24/19 23:15 Tylenol PO 650 mg Q4H PRN Administration Pain, Mild (1-3), headache Albuterol 2.5 mg 01/24/19 11:15 Proventil IH QIDRT PRN Shortness Of Breath Lipase/Protease/Amylase 1 each 01/24/19 18:38 Pancreaztelly [place] 10,500 Unit FEEDTUBE PRN PRN For Clogged Feeding Tube Aspirin 81 mg 01/27/19 17:00 01/27/19 17:04 Baby Aspirin PO 81 mg QDAY ELYSIA Administration Atorvastatin Calcium 40 mg 01/24/19 22:00 01/26/19 23:06 Lipitor PO 40 mg QHS ELYSIA Administration Enoxaparin Sodium 40 mg 01/24/19 12:00 01/27/19 10:00 Lovenox SUB-Q Not Given QDAY@1000 ELYSIA Famotidine 20 mg 01/24/19 12:00 01/27/19 10:01 Pepcid IV 20 mg QDAY ELYSIA Administration Hydralazine HCl 50 mg 01/24/19 14:00 01/27/19 14:00 Apresoline PO 50 mg Q8HR ELYSIA Administration Hydralazine HCl 10 mg 01/24/19 18:39 Apresoline IV Q4HR PRN Hypertension Labetalol HCl 10 mg 01/24/19 10:56 Normodyne IV Q5MIN PRN to maintain SBP < 180 Levetiracetam 1,500 mg 01/27/19 22:00 Keppra PO BID ELYSIA Simple Syrup 15 ml 01/24/19 18:38 Simple Syrup FEEDTUBE PRN PRN Hypoglycemia Simple Syrup 30 ml 01/24/19 18:38 Simple Syrup FEEDTUBE PRN PRN Hypoglycemia Sodium Bicarbonate 325 mg 01/24/19 18:38 Sodium Bicarbonate FEEDTUBE PRN PRN For Clogged Feeding Tube Sodium Chloride 10 ml 01/24/19 10:56 Sodium Chloride Flush Syringe 10 Ml IV PRN PRN LINE FLUSH Nutrition/Malnutrition Assess - Dietary Evaluation Nutrition/Malnutrition Findings: Nutrition Notes Start: 01/25/19 14:51 Freq: Status: Active Protocol: Document 01/25/19 14:51 RM (Rec: 01/25/19 15:02 RM [id number]) Nutrition Notes Need for Assessment generated from: MD Order Initial or Follow up Assessment Current Diagnosis COPD,Hypertension,Stroke Other Pertinent Diagnosis Dementia, Acute encephalopathy , Seizures Current Diet GI soft Labs/Tests Reviewed Pertinent Medications Reviewed Height 5 ft 6 in Weight 76.5 kg [place] Body Weight (kg) 59.09 BMI 27.2 Subjective/Other Information Consulted for TF recommendation. Screened for skin risk. Jamal 16 points. Per nurse pt family refused placement of dobhoff and diet was advanced. Nurse also stated that pt did not eat anything yesterday but ate 25% of her meals today . Percent of energy/protein needs met: 30%/26% Burn Absent Trauma Absent #1 Nutrition Diagnosis Inadequate oral intake Etiology dementia, acute encephalopathy As Evidenced by Signs and Symptoms nurse statement that pt ate 25 % of her meals today Is patient on ventilator? No Is Patient Ambulatory and/or Out of Bed Yes REE-([place]-St. Jeor-ambulatory/OOB) [ 1692.275 NUTR.MSJOOB] Calculation Used for Recommendations [facility] Additional Notes Protein Needs: 77-92g (1-1.2g/ kg) Fluid Needs: 1 ml/kcal Nutrition Intervention Change Diet Order: Continue current Add Supplement/Snack (indicate name/kcal Ensure Enlive 1 daily /protein ) Provides kCal: 350 Provides Protein (gm) 20 Goal #1 Meet at least 75% of calorie and protein needs via PO and ONS intakes Anticipated Discharge Needs: Unable to determine at this time Follow-Up By: 01/27/19 Additional Comments Follow for PO and ONS intakes
--- NOTE | 2019-01-27 17:19 | Progress Note ---
Assessment and Plan Impression: 1. Complex partial epilepsy, intractable 2. Embolic strokes 3. Memory loss 4. Cerebral amyloid angiopathy 5. Daytime somnolence Plan: 1. Could discharge if ambulatory with walker tomorrow with PT but will need a wheelchair as well. 2. Restarted aspirin 81 mg due to history of embolic strokes. 3. She had 30 day event monitoring to look for atrial fibrillation as I explained to her daughters, as her heart rhythm that can cause strokes and may not be detectable by the patient but is detectable automatically by the device. 4. I told them that even though anticoagulation would not be safe given her cerebral amyloid angiopathy, she might be a candidate for a watchman procedure (plugging of atrial appendage which is often the source of blood clots). 5. If 30 day event monitoring is negative, could consider a loop recorder which I explained. Did not discuss the possible need for a transesophageal echocardiogram though it is possible [facility] did one and the discharge summary I again requested may tell us that. 6. Ordered stat repeat MRI in case her initial MRI was falsely negative as it can be in 6% of strokes in the posterior circulation which might then have given her a field cut. She could get this as an outpatient if not done in time for discharge. Would not change management lead must still need the 30 day event monitoring. 7. Increased her levetiracetam to 1500 mg twice a day since only partial resp onse on EEG to 1000 mg twice a day. Not necessarily need a repeat outpatient EEG. Should be referred to a neurologist however for follow-up as an outpatient. 35 minutes spent including detailed explanations as above regarding EEG findings and seizures and strokes and possible need for Watchman procedure. Subjective Date of service: 01/27/19 Principal diagnosis: seizures, strokes Interval history: HPI: This 68-year-old female is seen again for follow-up of complex partial seizures. EEG today shows less of the triphasic waves suggesting they were epileptiform. I have increased her Keppra accordingly. Her daughter state that she was able to hold a candidate of Ensure with either hand and drink from it. She denies headache or dizziness. Family states she was not able to look to the left when she was admitted which I told them fits with the left field cut I noted. Her family feels she is mentally better today. Though mentioned in the chart from [facility], her daughters were not aware of use of tramadol. Records from [facility] from March 2018 showed MRI report of multiple small foci positive on diffusion suggesting an cardioembolic source. No record of an echocardiogram was done there however but negative here for PFO or other defect. At the time, she was admitted for symptoms of right facial numbness, gait instability and mild dysarthria. The diffusion positive foci were in the right occipital lobe, right hernandez radiata, and left hernandez radiata. Other old hemosiderin deposits were seen as well. Severe stenosis at C3-[address] angios of head and neck were normal there. HDL was 44 with LDL 88. Tox screen there was negative and alcohol was negative. No discharge summary was provided and no copy was sent of the neurology consult that was planned. General physical exam: General appearance: Well-developed but overweight early 70s -[place] female in no acute distress, awake appearing. Seen with 2 daughters at bedside. Neurologic exam: Mental status: Awake alert oriented to hospital but stammers the word (unusual for her according to daughters) and to Spring as the season but cannot give month or day or date and cannot give year after 1999 as prompt. Says she's in [place] which daughters say would've been a place in [place] from 30 years ago and then corrects herself to [place] though unable to give me what State. He gives [place] after first name prompt. Names pen and point of pen. Cranial nerves: Left inferior field cut, PERRLA, EOMs full without nystagmus or diplopia, enlarged left palpebral fissure, hears finger rub bilaterally, shoulder shrug is 5 right and 4+ left, tongue protrudes in the midline. Cerebellar: Finger to nose is intact, apraxic for [id number]. Motor exam upper extremities: No drift or pronation initially but tends to let left arm drop to bed, rapid alternating movements slower on the left. Rapid alternating movements are slower on the left. Motor exam lower extremities: can't lift either leg off bed. Iliopsoas is 5 bilaterally. Quadriceps are 4- right and 3+ left with knee supported, apraxic for anterior tibials but at least 3- strength, gastrocs are 5 right and 4+ left. Rapid alternating movements are slow bilaterally but especially on the left. Objective - Vital Sign Vital Signs - 12hr 01/27/19 01/27/19 01/27/19 05:13 05:18 10:00 Temperature 98.8 F Pulse Rate 79 78 Respiratory 20 Rate Blood Pressure 167/92 167/92 Blood Pressure [Left] O2 Sat by Pulse 95 95 Oximetry 01/27/19 01/27/19 01/27/19 10:39 12:07 14:32 Temperature 99.5 F Pulse Rate 99 H Respiratory Rate Blood Pressure Blood Pressure 158/86 [Left] O2 Sat by Pulse 100 Oximetry - Laboratory Findings CBC and BMP: 01/24/19 05:32 01/26/19 05:53 Abnormal Lab Findings: Abnormal Labs 01/24/19 01/24/19 01/24/19 05:32 05:32 05:32 Hgb 15.3 H Hct 46.0 H Lymph % (Auto) 8.5 L Lymph # 0.8 L Seg Neutrophils % 88.0 H Seg Neutrophils # 7.9 H Chloride Creatinine 0.6 L Glucose 190 H Hemoglobin A1c Total Creatine Kinase 919 H Albumin TSH 01/25/19 01/25/19 01/26/19 08:30 15:35 05:53 Hgb Hct Lymph % (Auto) Lymph # Seg Neutrophils % Seg Neutrophils # Chloride 109.4 H Creatinine Glucose 117 H Hemoglobin A1c 6.3 H Total Creatine Kinase Albumin 3.1 L TSH 4.640 H
[2019-01-27] MEDS ORDERED: KEPPRA PO SCH (22:00)
[2019-01-28] MEDS: APRESOLINE PO SCH ×3 (06:51→21:57)
[2019-01-28] MEDS: KEPPRA PO SCH ×2 (10:09→21:57)
[2019-01-28] MEDS: BABY ASPIRIN PO SCH (10:10)
[2019-01-28] MEDS: PEPCID IV SCH (10:10)
[2019-01-28] MEDS: SODIUM CHLORIDE FLUSH SYRINGE 10 ML IV PRN ×2 (10:10→21:57)
[2019-01-28] MEDS: LOVENOX SUB-Q SCH (10:10)
[2019-01-28] MEDS ORDERED: ATIVAN IM PRN (11:07)
--- NOTE | 2019-01-28 12:42 | Progress Note ---
Assessment and Plan Assessment and plan: --Acute small cerebellar CVA; on repeat MRI today 01/28/2019 Not a candidate for TPA , continue aspirin and statin --Possible TIA [ Acute CVA ruled out] Current Visit: Yes Status: Acute Not a candidate for TPA, neuro workup so far is negative possible TIA, --Seizures Current Visit: Yes Status: Acute Complex partial epilepsy, nonintractable Seizure precautions,keppra, Ativan as needed Neurology evaluation noted and appreciated , follow EEG , no driving -- Acute metabolic encephalopathy Current Visit: Yes Status: Acute Multifactorial, probably secondary to seizure, CVA, dementia Underlying disease process, supportive care -- Dementia/memory loss Current Visit: Yes Status: Acute Supportive care, neurology following -- Hypertension Current Visit:yes Status: Chronic Closely monitor blood pressures, continue current management When necessary hydralazine --History of cerebral amyloid angiopathy : h/o 2 episodes of bleeding in the remote past --Increasedsomnolence: obstructive sleep apnea outpatient sleep studies --DVT prophylaxis Current Visit: Yes Status: Acute renal Lovenox --Full code status Current Visit: Yes Status: Acute Physical therapy occupational therapy . I discussed the case with Patient's daughter patient's condition Treatment plan, reports of imaging studies, neurology recommendations and the discharge planning with different options. The daughter requested discharge home with home health when patient is stable Case management will assist with DC needs I also discussed with neurologist Dr. Summers Disposition; discharged home with [facility] when medically stable History Interval history: Patient seen and examined medical records reviewed Patient is more alert and awake today Underwent MRI study recommended that MRI taken today shows interval development of small left 7 mm acute infarct involving right cerebellum extensive microvascular angiopathic changes Vital signs noted Hospitalist Physical - Constitutional Vitals: Temp Pulse Resp BP Pulse Ox 98.8 F 96 H 18 153/87 94 01/28/19 05:19 01/28/19 06:51 01/28/19 05:19 01/28/19 06:51 01/28/19 09:36 General appearance: Present: no acute distress, well-nourished, other (noncommunicative) - EENT Eyes: Present: PERRL, EOM intact - Neck Neck: Present: supple, normal ROM - Respiratory Respiratory effort: normal Respiratory: bilateral: diminished, negative: rales, rhonchi, wheezing - Cardiovascular Rhythm: regular Heart Sounds: Present: S1 & S2 - Extremities Extremities: no ischemia, No edema - Abdominal General gastrointestinal: soft, non-tender, non-distended, normal bowel sounds - Integumentary Integumentary: Present: clear, warm - Psychiatric Psychiatric: appropriate mood/affect, cooperative, other (dementia, noncommunic ative) - Neurologic Neurologic: other (residual weakness) Results - Labs CBC & Chem 7: 01/24/19 05:32 01/26/19 05:53 Labs: Laboratory Last Values WBC 8.9 K/mm3 (4.5-11.0) 01/24/19 05:32 RBC 4.92 M/mm3 (3.65-5.03) 01/24/19 05:32 Hgb 15.3 gm/dl (10.1-14.3) H 01/24/19 05:32 Hct 46.0 % (30.3-42.9) H 01/24/19 05:32 MCV 94 fl (79-97) 01/24/19 05:32 MCH 31 pg (28-32) 01/24/19 05:32 MCHC 33 % (30-34) 01/24/19 05:32 RDW 14.4 % (13.2-15.2) 01/24/19 05:32 Plt Count 214 K/mm3 (140-440) 01/24/19 05:32 Lymph % (Auto) 8.5 % (13.4-35.0) L 01/24/19 05:32 [place] % (Auto) 2.5 % (0.0-7.3) 01/24/19 05:32 Eos % (Auto) 0.2 % (0.0-4.3) 01/24/19 05:32 Baso % (Auto) 0.8 % (0.0-1.8) 01/24/19 05:32 Lymph # 0.8 K/mm3 (1.2-5.4) L 01/24/19 05:32 [place] # 0.2 K/mm3 (0.0-0.8) 01/24/19 05:32 Eos # 0.0 K/mm3 (0.0-0.4) 01/24/19 05:32 Baso # 0.1 K/mm3 (0.0-0.1) 01/24/19 05:32 Seg Neutrophils % 88.0 % (40.0-70.0) H 01/24/19 05:32 Seg Neutrophils # 7.9 K/mm3 (1.8-7.7) H 01/24/19 05:32 PT 13.1 Sec. (12.2-14.9) 01/24/19 05:32 INR 1.02 (0.87-1.13) 01/24/19 05:32 APTT 26.4 Sec. (24.2-36.6) 01/24/19 05:32 18.0 Sec. (15.1-19.6) 01/24/19 05:32 Sodium 142 mmol/L (137-145) 01/26/19 05:53 Potassium 4.0 mmol/L (3.6-5.0) 01/26/19 05:53 Chloride 109.4 mmol/L (98-107) H 01/26/19 05:53 Carbon Dioxide 23 mmol/L (22-30) 01/26/19 05:53 14 mmol/L 01/26/19 05:53 BUN 9 mg/dL (7-17) 01/26/19 05:53 0.7 mg/dL (0.7-1.2) 01/26/19 05:53 Estimated GFR > 60 ml/min 01/26/19 05:53 13 % 01/26/19 05:53 Glucose 117 mg/dL (65-100) H 01/26/19 05:53 POC Glucose 100 (70-105) 01/24/19 22:07 6.3 % (4-6) H 01/25/19 08:30 Calcium 8.5 mg/dL (8.4-10.2) 01/26/19 05:53 Magnesium 2.00 mg/dL (1.7-2.3) 01/24/19 05:32 0.70 mg/dL (0.1-1.2) 01/26/19 05:53 AST 25 units/L (5-40) 01/26/19 05:53 ALT 14 units/L (7-56) 01/26/19 05:53 54 units/L (35-129) 01/26/19 05:53 46.0 umol/L (25-60) 01/25/19 15:35 919 units/L (30-135) H 01/24/19 05:32 < 0.010 ng/mL (0.00-0.029) 01/24/19 05:32 6.3 g/dL (6.3-8.2) 01/26/19 05:53 3.1 g/dL (3.9-5) L 01/26/19 05:53 1.0 % 01/26/19 05:53 Triglycerides 58 mg/dL (2-149) 01/24/19 05:32 Cholesterol 127 mg/dL (50-199) 01/24/19 05:32 67 mg/dL (50-130) 01/24/19 05:32 57 mg/dL (40-59) 01/24/19 05:32 2.22 % 01/24/19 05:32 Vitamin B12 765.4 pg/mL (211-911) 01/25/19 15:35 16.61 ng/mL (7.3-26.0) 01/25/19 15:35 TSH 4.640 mlU/mL (0.270-4.200) H 01/25/19 15:35 Free T4 1.19 ng/dL (0.76-1.46) 01/25/19 15:35 Straw (Yellow) 01/24/19 Unknown Clear (Clear) 01/24/19 Unknown 6.0 (5.0-7.0) 01/24/19 Unknown Ur Specific [place] 1.009 (1.003-1.030) 01/24/19 Unknown <15 mg/dl mg/dL (Negative) 01/24/19 Unknown Neg mg/dL (Negative) 01/24/19 Unknown Neg mg/dL (Negative) 01/24/19 Unknown Neg (Negative) 01/24/19 Unknown Neg (Negative) 01/24/19 Unknown Neg (Negative) 01/24/19 Unknown < 2.0 mg/dL (<2.0) 01/24/19 Unknown Ur Leukocyte Esterase Neg (Negative) 01/24/19 Unknown 1.0 /HPF (0.0-6.0) 01/24/19 Unknown 1.0 /HPF (0.0-6.0) 01/24/19 Unknown U Epithel Cells (Auto) 2.0 /HPF (0-13.0) 01/24/19 Unknown Amorphous Crystals Few 01/24/19 Unknown Few /HPF 01/24/19 Unknown Active Medications - Current Medications Current Medications: Generic Name Dose Route Start Last Admin Trade Name Freq PRN Reason Stop Dose Admin Acetaminophen 650 mg 01/24/19 23:07 01/24/19 23:15 Tylenol PO 650 mg Q4H PRN Administration Pain, Mild (1-3), headache Albuterol 2.5 mg 01/24/19 11:15 Proventil IH QIDRT PRN Shortness Of Breath Lipase/Protease/Amylase 1 each 01/24/19 18:[address] 10,500 Unit FEEDTUBE PRN PRN For Clogged Feeding Tube Aspirin 81 mg 01/27/19 17:00 01/28/19 10:10 Baby Aspirin PO 81 mg QDAY ELYSIA Administration Atorvastatin Calcium 40 mg 01/24/19 22:00 01/27/19 22:48 Lipitor PO 40 mg QHS ELYSIA Administration Enoxaparin Sodium 40 mg 01/24/19 12:00 01/28/19 10:10 Lovenox SUB-Q 40 mg QDAY@1000 ELYSIA Administration Famotidine 20 mg 01/24/19 12:00 01/28/19 10:10 Pepcid IV 20 mg QDAY ELYSIA Administration Hydralazine HCl 50 mg 01/24/19 14:00 01/28/19 06:51 Apresoline PO 50 mg Q8HR ELYSIA Administration Hydralazine HCl 10 mg 01/24/19 18:39 Apresoline IV Q4HR PRN Hypertension Labetalol HCl 10 mg 01/24/19 10:56 Normodyne IV Q5MIN PRN to maintain SBP < 180 Levetiracetam 1,500 mg 01/27/19 22:00 01/28/19 10:09 Keppra PO 1,500 mg BID ELYSIA Administration Lorazepam 2 mg 01/28/19 11:07 01/28/19 11:44 Ativan IM 2 mg [employer] PRN Administration Agitation Simple Syrup 15 ml 01/24/19 18:38 Simple Syrup FEEDTUBE PRN PRN Hypoglycemia Simple Syrup 30 ml 01/24/19 18:38 Simple Syrup FEEDTUBE PRN PRN Hypoglycemia Sodium Bicarbonate 325 mg 01/24/19 18:38 Sodium Bicarbonate FEEDTUBE PRN PRN For Clogged Feeding Tube Sodium Chloride 10 ml 01/24/19 10:56 01/28/19 10:10 Sodium Chloride Flush Syringe 10 Ml IV 10 ml PRN PRN Administration LINE FLUSH Nutrition/Malnutrition Assess - Dietary Evaluation Nutrition/Malnutrition Findings: Nutrition Notes Start: 01/25/19 14:51 Freq: Status: Active Protocol: Document 01/27/19 17:13 RM (Rec: 01/27/19 17:19 RM [id number]) Nutrition Notes Initial or Follow up Reassessment Current Diagnosis COPD,Hypertension,Stroke Other Pertinent Diagnosis Dementia, Acute encephalopathy , Seizures Current Diet GI soft Labs/Tests Reviewed Pertinent Medications Reviewed Height 5 ft 6 in Weight 76.53 kg [place] Body Weight (kg) 59.09 BMI 27.2 Subjective/Other Information Pt and pt daughter in room at time of visit. Pt daughter stated that pt drank 2 Ensure Enlive, one from today and one from yesterday. Also stated that pt ate 1/3 of her breakfast. Percent of energy/protein needs met: 82%/87% Burn Absent Trauma Absent #1 Nutrition Diagnosis Inadequate oral intake As Evidenced by Signs and Symptoms pt meeting 82% of calorie and 87% of protein needs Diagnosis Progress(for reassessment Resolved documentation) Is patient on ventilator? No Is Patient Ambulatory and/or Out of Bed Yes REE-([facility]-ambulatory/OOB) [ 1692.665 [id number]] Calculation Used for Recommendations [facility] Additional Notes Protein Needs: 77-92g (1-1.2g/ kg) Fluid Needs: 1 ml/kcal Nutrition Intervention Change Diet Order: Continue current Add Supplement/Snack (indicate name/kcal Ensure Enlive BID /protein ) Provides kCal: 700 Provides Protein (gm) 40 Goal #1 Continue to meet at least 75% of calorie and protein needs via PO and ONS intakes Anticipated Discharge Needs: Unable to determine at this time Follow-Up By: 02/01/19 Additional Comments Follow for PO and ONS intakes
--- NOTE | 2019-01-28 13:46 | Magnetic Resonance Report ---
MRI BRAIN WITHOUT CONTRAST INDICATION / CLINICAL INFORMATION: stroke. TECHNIQUE: Multiplanar, multisequence MR images of the brain were obtained. COMPARISON: The study is compared with the previous MRI of 01/24/2019. FINDINGS: BRAIN / INTRACRANIAL CONTENTS: There has been interval development of a 7 mm focus of increased diffu diamond signal within the right cerebellum compatible with developing acute infarction. There is a persi stent small focus of increased diffusion signal along the posterior left periventricular region. There is marked extensive cerebral, pontine and cerebellar white matter disease indicative of advance d microvascular angiopathy. The findings also correlate with the prior study at. The susceptibility w eighted imaging demonstrates multiple scattered foci of marked decreased signal compatible with chron ic microhemorrhages at. The findings remain most notable within the left basal ganglia. There is continued mild to moderate cerebral atrophy with associated mild prominence of the ventricul ar system at. No extra-axial fluid collections or significant mass effect is identified. CRANIOCERVICAL JUNCTION: No significant abnormality. VASCULAR FLOW-VOIDS: No significant abnormality. ORBITS: No significant abnormality of visualized orbits. SINUSES / MASTOIDS: There is extensive opacification of the right mastoid air cells which correlates with the prior study at. ADDITIONAL FINDINGS: None. IMPRESSION: 1. There has been interval development of a smaller 7 mm acute infarct involving the right cerebellum . 2. There is continued marked extensive a microvascular angiopathy as detailed above. Signer Name: Deangelo Chambers MD Signed: 01/28/2019 1:41 PM Workstation Name: [id number]
--- NOTE | 2019-01-28 13:48 | Progress Note ---
Subjective Date of service: 01/28/19 Principal diagnosis: seizures, strokes Interval history: Dr. Hong asked me to look over the MRI re-order there is clear cut small infact of the left inferior cerebellum very minimal seen on T2 weighted images and diffusion weighted was not here on the first MRI !!! Objective - Vital Sign Vital Signs - 12hr 01/28/19 01/28/19 01/28/19 05:19 06:51 09:36 Temperature 98.8 F Pulse Rate 96 H 96 H Respiratory 18 Rate Blood Pressure 153/87 153/87 O2 Sat by Pulse 96 94 Oximetry - Laboratory Findings CBC and BMP: 01/24/19 05:32 01/26/19 05:53 Abnormal Lab Findings: Abnormal Labs 01/24/19 01/24/19 01/24/19 05:32 05:32 05:32 Hgb 15.3 H Hct 46.0 H Lymph % (Auto) 8.5 L Lymph # 0.8 L Seg Neutrophils % 88.0 H Seg Neutrophils # 7.9 H Chloride Creatinine 0.6 L Glucose 190 H Hemoglobin A1c Total Creatine Kinase 919 H Albumin TSH 01/25/19 01/25/19 01/26/19 08:30 15:35 05:53 Hgb Hct Lymph % (Auto) Lymph # Seg Neutrophils % Seg Neutrophils # Chloride 109.4 H Creatinine Glucose 117 H Hemoglobin A1c 6.3 H Total Creatine Kinase Albumin 3.1 L TSH 4.640 H
[2019-01-29] MEDS: APRESOLINE PO SCH ×3 (06:38→21:03)
--- NOTE | 2019-01-29 09:20 | Discharge Summary ---
Providers - Providers Date of Admission: 01/24/19 09:13 Date of discharge: 01/29/19 Attending physician: MAYITO PALMER 01/24/19 10:56 Occupational Therapy Evaluate and Treat [CONS] Routine Comment: Reason For Exam: Neuro deficits Physical Therapy Evaluation and Treat [CONS] Routine Comment: Reason For Exam: Neuro deficits 01/24/19 17:28 Speech Therapy Evaluation and Treat [CONS] Routine Reason For Exam: Speech and Swallow evaln and treat 01/24/19 18:38 Consult to Dietitian/Nutrition [CONS] Routine Physician Instructions: Assess nutrtn needs, initiate, modify, manage TF Reason For Exam: Reason for Consult: Write/Manage Tube Feeding Reason for Consult: Write/Manage Tube Feeding 01/25/19 10:59 Consult to Physician [CONS] Routine Comment: Consulting Provider: THIERRY ORTEGA Physician Instructions: Reason For Exam: Seizure/AMS/ CVA like symptoms [facility] Hospitalization Condition: Fair Disposition: DC-30 STILL A PATIENT Exam - Constitutional Vitals: Temp Pulse Resp BP Pulse Ox 98.1 F 69 20 143/91 96 01/29/19 06:06 01/29/19 06:06 01/29/19 06:06 01/29/19 06:06 01/29/19 06:06 Plan Follow up with: MARIA ALEJANDRA LOOMIS MD [Primary Care Provider] - 3-5 Days
[2019-01-29] MEDS: KEPPRA PO SCH ×2 (09:27→21:03)
[2019-01-29] MEDS: PEPCID IV SCH (09:28)
[2019-01-29] MEDS: LOVENOX SUB-Q SCH (09:28)
[2019-01-29] MEDS: BABY ASPIRIN PO SCH (09:28)
[2019-01-29] MEDS: NORVASC PO SCH (09:28)
--- NOTE | 2019-01-29 11:10 | Progress Note ---
Assessment and Plan Assessment and plan: --Acute small cerebellar CVA; 7 mm acute infarct involving the right cerebellum , markedly extensive microvascular angiopathy on repeat MRI today 01/28/2019 Not a candidate for TPA , continue aspirin and statin Physical therapy occupational therapy --Seizures Current Visit: Yes Status: Acute Complex partial epilepsy, nonintractable Seizure precautions,keppra, Ativan as needed Neurology evaluation noted and appreciated , follow EEG , no driving -- Acute metabolic encephalopathy: Present on admission Current Visit: Yes Status: Acute Neuro Workup negative CVA ruled out, The patient has acute CVA on repeat MRI 01/28/19 patient is more alert and awake today -- Dementia/memory loss Current Visit: Yes Status: Acute Supportive care, neurology following -- Hypertension Current Visit:yes Status: Chronic Closely monitor blood pressures, continue current management When necessary hydralazine --History of cerebral amyloid angiopathy : h/o 2 episodes of bleeding in the remote past --Increased somnolence: Patient is more alert and awake today responding Appropriately,more verbal and more awake --DVT prophylaxis Current Visit: Yes Status: Acute renal Lovenox --Full code status Current Visit: Yes Status: Acute Physical therapy occupational therapy . I discussed the case with Patient's daughter Aura [phone] findings on rpt MRI Treatment plan, reports of all imaging studies, neurology recommendations and the discharge planning with different options. The daughter requested discharge home with home health when patient is stable Discussed with neuro . Disposition;f/u PT OT evaln and DC home with [facility] as requested by the daughter. When patient is medically stable History Interval history: The patient seen and examined ,medical records reviewed Patient is more alert and awake and responding appropriately Repeat MRI done yesterday revealed 7 mm acute infarct on the rt cerebellar area Vital signs noted Hospitalist Physical - Constitutional Vitals: Temp Pulse Resp BP Pulse Ox 98.1 F 69 20 143/91 96 01/29/19 06:06 01/29/19 09:28 01/29/19 06:06 01/29/19 09:28 01/29/19 06:06 General appearance: Present: no acute distress, well-nourished, other (noncommunicative) - EENT Eyes: Present: PERRL, EOM intact - Neck Neck: Present: supple, normal ROM - Respiratory Respiratory effort: normal Respiratory: bilateral: diminished, rales, negative: rhonchi, wheezing - Cardiovascular Rhythm: regular Heart Sounds: Present: S1 & S2 - Extremities Extremities: no ischemia, No edema - Abdominal General gastrointestinal: soft, non-tender, non-distended, normal bowel sounds - Integumentary Integumentary: Present: clear, warm - Psychiatric Psychiatric: appropriate mood/affect, cooperative - Neurologic Neurologic: moves all extremities, other ( speech clear, residual weakness) Results - Labs CBC & Chem 7: 01/24/19 05:32 01/26/19 05:53 Labs: Laboratory Last Values WBC 8.9 K/mm3 (4.5-11.0) 01/24/19 05:32 RBC 4.92 M/mm3 (3.65-5.03) 01/24/19 05:32 Hgb 15.3 gm/dl (10.1-14.3) H 01/24/19 05:32 Hct 46.0 % (30.3-42.9) H 01/24/19 05:32 MCV 94 fl (79-97) 01/24/19 05:32 MCH 31 pg (28-32) 01/24/19 05:32 MCHC 33 % (30-34) 01/24/19 05:32 RDW 14.4 % (13.2-15.2) 01/24/19 05:32 Plt Count 214 K/mm3 (140-440) 01/24/19 05:32 Lymph % (Auto) 8.5 % (13.4-35.0) L 01/24/19 05:32 [place] % (Auto) 2.5 % (0.0-7.3) 01/24/19 05:32 Eos % (Auto) 0.2 % (0.0-4.3) 01/24/19 05:32 Baso % (Auto) 0.8 % (0.0-1.8) 01/24/19 05:32 Lymph # 0.8 K/mm3 (1.2-5.4) L 01/24/19 05:32 [place] # 0.2 K/mm3 (0.0-0.8) 01/24/19 05:32 Eos # 0.0 K/mm3 (0.0-0.4) 01/24/19 05:32 Baso # 0.1 K/mm3 (0.0-0.1) 01/24/19 05:32 Seg Neutrophils % 88.0 % (40.0-70.0) H 01/24/19 05:32 Seg Neutrophils # 7.9 K/mm3 (1.8-7.7) H 01/24/19 05:32 PT 13.1 Sec. (12.2-14.9) 01/24/19 05:32 INR 1.02 (0.87-1.13) 01/24/19 05:32 APTT 26.4 Sec. (24.2-36.6) 01/24/19 05:32 18.0 Sec. (15.1-19.6) 01/24/19 05:32 Sodium 142 mmol/L (137-145) 01/26/19 05:53 Potassium 4.0 mmol/L (3.6-5.0) 01/26/19 05:53 Chloride 109.4 mmol/L (98-107) H 01/26/19 05:53 Carbon Dioxide 23 mmol/L (22-30) 01/26/19 05:53 14 mmol/L 01/26/19 05:53 BUN 9 mg/dL (7-17) 01/26/19 05:53 0.7 mg/dL (0.7-1.2) 01/26/19 05:53 Estimated GFR > 60 ml/min 01/26/19 05:53 13 % 01/26/19 05:53 Glucose 117 mg/dL (65-100) H 01/26/19 05:53 POC Glucose 100 (70-105) 01/24/19 22:07 6.3 % (4-6) H 01/25/19 08:30 Calcium 8.5 mg/dL (8.4-10.2) 01/26/19 05:53 Magnesium 2.00 mg/dL (1.7-2.3) 01/24/19 05:32 0.70 mg/dL (0.1-1.2) 01/26/19 05:53 AST 25 units/L (5-40) 01/26/19 05:53 ALT 14 units/L (7-56) 01/26/19 05:53 54 units/L (35-129) 01/26/19 05:53 46.0 umol/L (25-60) 01/25/19 15:35 919 units/L (30-135) H 01/24/19 05:32 < 0.010 ng/mL (0.00-0.029) 01/24/19 05:32 6.3 g/dL (6.3-8.2) 01/26/19 05:53 3.1 g/dL (3.9-5) L 01/26/19 05:53 1.0 % 01/26/19 05:53 Triglycerides 58 mg/dL (2-149) 01/24/19 05:32 Cholesterol 127 mg/dL (50-199) 01/24/19 05:32 67 mg/dL (50-130) 01/24/19 05:32 57 mg/dL (40-59) 01/24/19 05:32 2.22 % 01/24/19 05:32 Vitamin B12 765.4 pg/mL (211-911) 01/25/19 15:35 16.61 ng/mL (7.3-26.0) 01/25/19 15:35 TSH 4.640 mlU/mL (0.270-4.200) H 01/25/19 15:35 Free T4 1.19 ng/dL (0.76-1.46) 01/25/19 15:35 Straw (Yellow) 01/24/19 Unknown Clear (Clear) 01/24/19 Unknown 6.0 (5.0-7.0) 01/24/19 Unknown Ur Specific Elim 1.009 (1.003-1.030) 01/24/19 Unknown <15 mg/dl mg/dL (Negative) 01/24/19 Unknown Neg mg/dL (Negative) 01/24/19 Unknown Neg mg/dL (Negative) 01/24/19 Unknown Neg (Negative) 01/24/19 Unknown Neg (Negative) 01/24/19 Unknown Neg (Negative) 01/24/19 Unknown < 2.0 mg/dL (<2.0) 01/24/19 Unknown Ur Leukocyte Esterase Neg (Negative) 01/24/19 Unknown 1.0 /HPF (0.0-6.0) 01/24/19 Unknown 1.0 /HPF (0.0-6.0) 01/24/19 Unknown U Epithel Cells (Auto) 2.0 /HPF (0-13.0) 01/24/19 Unknown Amorphous Crystals Few 01/24/19 Unknown Few /HPF 01/24/19 Unknown Active Medications - Current Medications Current Medications: Generic Name Dose Route Start Last Admin Trade Name Freq PRN Reason Stop Dose Admin Acetaminophen 650 mg 01/24/19 23:07 01/24/19 23:15 Tylenol PO 650 mg Q4H PRN Administration Pain, Mild (1-3), headache Albuterol 2.5 mg 01/24/19 11:15 Proventil IH QIDRT PRN Shortness Of Breath Amlodipine Besylate 5 mg 01/29/19 10:00 01/29/19 09:28 Norvasc PO 5 mg QDAY ELYSIA Administration Lipase/Protease/Amylase 1 each 01/24/19 18:38 Pancreaze 10,500 Unit FEEDTUBE PRN PRN For Clogged Feeding Tube Aspirin 81 mg 01/27/19 17:00 01/29/19 09:28 Baby Aspirin PO 81 mg QDAY ELYSIA Administration Atorvastatin Calcium 40 mg 01/24/19 22:00 01/28/19 21:58 Lipitor PO 40 mg QHS ELYSIA Administration Enoxaparin Sodium 40 mg 01/24/19 12:00 01/29/19 09:28 Lovenox SUB-Q 40 mg QDAY@1000 ELYSIA Administration Famotidine 20 mg 01/24/19 12:00 01/29/19 09:28 Pepcid IV 20 mg QDAY ELYSIA Administration Hydralazine HCl 50 mg 01/24/19 14:00 01/29/19 06:38 Apresoline PO 50 mg Q8HR ELYSIA Administration Hydralazine HCl 10 mg 01/24/19 18:39 Apresoline IV Q4HR PRN Hypertension Labetalol HCl 10 mg 01/24/19 10:56 Normodyne IV Q5MIN PRN to maintain SBP < 180 Levetiracetam 1,500 mg 01/27/19 22:00 01/29/19 09:27 Keppra PO 1,500 mg BID ELYSIA Administration Lorazepam 2 mg 01/28/19 11:07 01/28/19 11:44 Ativan IM 2 mg [employer]ATIONS PRN Administration Agitation Simple Syrup 15 ml 01/24/19 18:38 Simple Syrup FEEDTUBE PRN PRN Hypoglycemia Simple Syrup 30 ml 01/24/19 18:38 Simple Syrup FEEDTUBE PRN PRN Hypoglycemia Sodium Bicarbonate 325 mg 01/24/19 18:38 Sodium Bicarbonate FEEDTUBE PRN PRN For Clogged Feeding Tube Sodium Chloride 10 ml 01/24/19 10:56 01/28/19 21:57 Sodium Chloride Flush Syringe 10 Ml IV 10 ml PRN PRN Administration LINE FLUSH Nutrition/Malnutrition Assess - Dietary Evaluation Nutrition/Malnutrition Findings: Nutrition Notes Start: 01/25/19 14:51 Freq: Status: Active Protocol: Document 01/27/19 17:13 RM (Rec: 01/27/19 17:19 RM [id number]) Nutrition Notes Initial or Follow up Reassessment Current Diagnosis COPD,Hypertension,Stroke Other Pertinent Diagnosis Dementia, Acute encephalopathy , Seizures Current Diet GI soft Labs/Tests Reviewed Pertinent Medications Reviewed Height 5 ft 6 in Weight 76.53 kg [place] Body Weight (kg) 59.09 BMI 27.2 Subjective/Other Information Pt and pt daughter in room at time of visit. Pt daughter stated that pt drank 2 Ensure Enlive, one from today and one from yesterday. Also stated that pt ate 1/3 of her breakfast. Percent of energy/protein needs met: 82%/87% Burn Absent Trauma Absent #1 Nutrition Diagnosis Inadequate oral intake As Evidenced by Signs and Symptoms pt meeting 82% of calorie and 87% of protein needs Diagnosis Progress(for reassessment Resolved documentation) Is patient on ventilator? No Is Patient Ambulatory and/or Out of Bed Yes REE-([facility]-ambulatory/OOB) [ 1692.665 [id number]] Calculation Used for Recommendations [facility] Additional Notes Protein Needs: 77-92g (1-1.2g/ kg) Fluid Needs: 1 ml/kcal Nutrition Intervention Change Diet Order: Continue current Add Supplement/Snack (indicate name/kcal Ensure Enlive BID /protein ) Provides kCal: 700 Provides Protein (gm) 40 Goal #1 Continue to meet at least 75% of calorie and protein needs via PO and ONS intakes Anticipated Discharge Needs: Unable to determine at this time Follow-Up By: 02/01/19 Additional Comments Follow for PO and ONS intakes
[2019-01-29 12:58] LABS: Vitamin D, 25-OH, D2 <4 ng/mL
--- NOTE | 2019-01-29 15:36 | Progress Note ---
Subjective Date of service: 01/29/19 Principal diagnosis: seizures, strokes Interval history: see my dictated note it is OK to discharge the patient on medical therapy and follow up in the office spoke to Dr. Swetha medina Objective - Vital Sign Vital Signs - 12hr 01/29/19 01/29/19 01/29/19 06:06 09:28 12:39 Temperature 98.1 F 98.4 F Pulse Rate 69 69 101 H Respiratory 20 18 Rate Blood Pressure 143/91 143/91 137/84 O2 Sat by Pulse 96 90 Oximetry 01/29/19 14:51 Temperature Pulse Rate 101 H Respiratory Rate Blood Pressure 137/84 O2 Sat by Pulse Oximetry - Laboratory Findings CBC and BMP: 01/24/19 05:32 01/26/19 05:53 Abnormal Lab Findings: Abnormal Labs 01/24/19 01/24/19 01/24/19 05:32 05:32 05:32 Hgb 15.3 H Hct 46.0 H Lymph % (Auto) 8.5 L Lymph # 0.8 L Seg Neutrophils % 88.0 H Seg Neutrophils # 7.9 H Chloride Creatinine 0.6 L Glucose 190 H Hemoglobin A1c Total Creatine Kinase 919 H Albumin TSH 01/25/19 01/25/19 01/26/19 08:30 15:35 05:53 Hgb Hct Lymph % (Auto) Lymph # Seg Neutrophils % Seg Neutrophils # Chloride 109.4 H Creatinine Glucose 117 H Hemoglobin A1c 6.3 H Total Creatine Kinase Albumin 3.1 L TSH 4.640 H
[2019-01-29] MEDS: SODIUM CHLORIDE FLUSH SYRINGE 10 ML IV PRN (21:04)
--- NOTE | 2019-01-29 23:54 | Consultation ---
HISTORY OF PRESENT ILLNESS: This is a 68-year-old black female who presents to [facility]. She presented with a history of weakness, problems with coordination, severe dizziness. I have reviewed her followup MRI scan and she has a small ischemic lesion in the inferior cerebellum. This matches with the T2 weighted images and is also seen on the diffusion weighted image. Interestingly, the initial CT scan and MRI did not show this lesion. 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 I think this certainly is the causation of the stroke, small vessel disease. I would recommend medical therapy for this. PHYSICAL EXAMINATION: VITAL SIGNS: At present time, her vital signs are stable. GENERAL: She is alert, doing better. Cranial nerves are intact. Speech clear. Affect appropriate. NECK: Supple. NEUROLOGIC: Motor tone is good and she is not having any seizure activity. 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 PLAN: Discharged at this point. Follow up with me in the office. JOB# [id number] EYAD/IKE
[2019-01-30] MEDS: APRESOLINE PO SCH ×2 (06:09→15:50)
[2019-01-30 11:37] VITALS: BP 148/92
[2019-01-30] MEDS: BABY ASPIRIN PO SCH (12:34)
[2019-01-30] MEDS: KEPPRA PO SCH (12:34)
[2019-01-30] MEDS: NORVASC PO SCH (12:34)
[2019-01-30] MEDS: LOVENOX SUB-Q SCH (12:35)
[2019-01-30] MEDS: PEPCID IV SCH ×2 (12:36→12:40)
--- NOTE | 2019-01-30 15:18 | Discharge Summary ---
Providers - Providers Date of Admission: 01/24/19 09:13 Date of discharge: 01/30/19 Attending physician: MAYITO PALMER 01/24/19 10:56 Occupational Therapy Evaluate and Treat [CONS] Routine Comment: Reason For Exam: Neuro deficits Physical Therapy Evaluation and Treat [CONS] Routine Comment: Reason For Exam: Neuro deficits 01/24/19 17:28 Speech Therapy Evaluation and Treat [CONS] Routine Reason For Exam: Speech and Swallow evaln and treat 01/24/19 18:38 Consult to Dietitian/Nutrition [CONS] Routine Physician Instructions: Assess nutrtn needs, initiate, modify, manage TF Reason For Exam: Reason for Consult: Write/Manage Tube Feeding Reason for Consult: Write/Manage Tube Feeding 01/25/19 10:59 Consult to Physician [CONS] Routine Comment: Consulting Provider: THIERRY ORTEGA Physician Instructions: Reason For Exam: Seizure/AMS/ CVA like symptoms [facility] Condition: [facility] Hospital course: --7 mm small acute cerebellar infarct / CVA;not present on admission. 7 mm acute infarct involving the right cerebellum on repeat MRI today 01/28/2019 markedly extensive microvascular angiopathy Not a candidate for TPA , continue aspirin and statin Physical therapy occupational therapy Neurology following --Seizures Current Visit: Yes Status: Acute Complex partial epilepsy, nonintractable Seizure precautions,keppra, Ativan as needed Neurology evaluation noted and appreciated , follow EEG , no driving -- Acute metabolic encephalopathy: Present on admission Current Visit: Yes Status: Acute Initial Neuro Workup negative, CVA ruled out, However repeat MRI 01/28/19 showed 7mm acute infarct. Not a candidate for TPA unknown time of infarct. patient is more alert and awake today -- Dementia/memory loss Current Visit: Yes Status: Acute Supportive care, neurology following -- Hypertension Current Visit:yes Status: Chronic Closely monitor blood pressures, continue current management When necessary hydralazine --History of cerebral amyloid angiopathy : h/o 2 episodes of bleeding in the remote past --Increased somnolence: Patient is more alert and awake today responding Appropriately,more verbal and more awake --DVT prophylaxis Current Visit: Yes Status: Acute renal Lovenox --Full code status Current Visit: Yes Status: Acute Physical therapy occupational therapy . I discussed the case with Patient's daughter Aura [phone] findings on rpt MRI Treatment plan, reports of all imaging studies, neurology recommendations and the discharge planning with different options. The daughter requested discharge home with home health when patient is stable Discussed with neuro . Disposition;f/u PT OT evaln and DC home with [facility] as requested by the daughter. When patient is medically stable Disposition: DC/[place]-06 HOME UNDER [facility] Time spent for discharge: 32 min Core Measure Documentation - Palliative Care Palliative Care/ Comfort Measures: Not Applicable - Core Measures Any of the following diagnoses?: stroke - Stroke Discharge Requirements Statin for LDL = or >70 mg/dl on DC: Yes Anticoag for atrial fib/atrial flutter: Not Applicable Reason for no anticoag for AF/F on DC: Not Indicated Antithrombotic for ischemic stroke: Yes Exam - Constitutional Vitals: Temp Pulse Resp BP Pulse Ox 98.5 F 92 H 18 148/92 92 01/30/19 11:22 01/30/19 12:34 01/30/19 11:22 01/30/19 12:34 01/30/19 11:22 General appearance: Present: no acute distress, well-nourished - EENT Eyes: Present: PERRL, EOM intact - Neck Neck: Present: supple, normal ROM - Respiratory Respiratory effort: normal Respiratory: bilateral: diminished, negative: rales, rhonchi, wheezing - Cardiovascular Rhythm: regular Heart Sounds: Present: S1 & S2 - Extremities Extremities: no ischemia, No edema - Abdominal General gastrointestinal: Present: soft, non-tender, non-distended, normal bowel sounds - Integumentary Integumentary: Present: clear, warm - Musculoskeletal Musculoskeletal: strength equal bilaterally - Psychiatric Psychiatric: appropriate mood/affect, cooperative - Neurologic Neurologic: moves all extremities, other (residual weakness) Plan Activity: advance as tolerated, no driving until cleared by PCP, fall precautions, other (seizure precautions) Diet: other (cardiac diet) Special Instructions: physical therapy, occupational therapy Additional Instructions: seizure precautions. Fall precautions. Do not drive. Drink plenty fluids Follow up with: MARIA ALEJANDRA LOOMIS MD [Primary Care Provider] - 3-5 Days BIENVENIDO CARRASCO MD [Staff Physician] - 7 Days Prescriptions: hydrALAZINE [Apresoline TAB] 50 mg PO Q8HR #90 tablet Aspirin [Aspirin BABY CHEW TAB] 81 mg PO QDAY #30 tab.chew levETIRAcetam [Keppra] 1,500 mg PO BID #60 oral.liqd AtorvaSTATin [Lipitor] 40 mg PO QHS #30 tablet amLODIPine [Norvasc] 5 mg PO QDAY #30 tablet Famotidine [Pepcid] 20 mg PO DAILY #30 tablet
[2019-01-31] MEDS ORDERED: PEPCID PO SCH (10:00)
== END 2019-01-30 19:00 | disposition home health service (06) | DRG 100 ==
LOC: ED 04:57 → 3A 09:13
PROVIDERS: ADMIT Internal Medicine; ATTEND Internal Medicine
DX: G40.209 Localization-related (focal) (partial) symptomatic epilepsy and epileptic syndromes with complex partial seizures, not intractable, without status epilepticus (principal); I63.9 Cerebral infarction, unspecified; E85.4 Organ-limited amyloidosis; J44.9 Chronic obstructive pulmonary disease, unspecified; I68.0 Cerebral amyloid angiopathy; R29.720 NIHSS score 20; G40.909 Epilepsy, unspecified, not intractable, without status epilepticus; F03.90 Unspecified dementia, unspecified severity, without behavioral disturbance, psychotic disturbance, mood disturbance, and anxiety; Z91.81 History of falling; Z82.49 Family history of ischemic heart disease and other diseases of the circulatory system; Z86.73 Personal history of transient ischemic attack (TIA), and cerebral infarction without residual deficits; Z87.891 Personal history of nicotine dependence; Z83.3 Family history of diabetes mellitus
CPT/HCPCS: 36415; 70450; 70496; 70498; 70549; 70551; 71045; 80048; 80053; 80061; 81001; 82140; 82306; 82550; 82607; 82747; 82962; 83036; 83735; 84425; 84439; 84443; 84480; 84484; 85025; 85610; 85670; 85730; 86800; 87086; 87116; 93005; 93010; 93306; 93880; 94640; 94760; 95819; 96361; 96365; 96366; G0378; A9270-GY; A9577; J0360; J1650; J1953; J2060; J7030; J7040; Q9967

== ENCOUNTER 2020-11-15 16:05 | Inpatient (IN) | payer MEDICARE ==
[2020-11-15] MEDS ORDERED: CEFEPIME/NS 2 GM/100 ML 2 GM/100 ML BAG IV ONE (17:46)
[2020-11-15] MEDS ORDERED: SODIUM CHLORIDE 0.9% 1000 ML IV SOLN IV ONE (17:46)
[2020-11-15] MEDS ORDERED: VANCOMYCIN PHARMACY TO DOSE IV SCH ×2 (18:00→23:00)
[2020-11-15 18:09] LABS: Basophils # (Auto) 0.1 K/mm3 (0.0-0.1); Basophils % (Auto) 0.8 % (0.0-1.8); Eosinophils % (Auto) 0.1 % (0.0-4.3); Hematocrit 41.7 % (30.3-42.9); Lymphocytes # (Auto) 1.5 K/mm3 (1.2-5.4); Lymphocytes % (Auto) 19.6 % (13.4-35.0); Mean Corpuscular HGB Conc 34 % (30-34); Mean Corpuscular Volume 92 fl (79-97); Monocytes # (Auto) 0.4 K/mm3 (0.0-0.8); Monocytes % (Auto) 5.1 % (0.0-7.3); Platelet Count 254 K/mm3 (140-440); Red Blood Count 4.55 M/mm3 (3.65-5.03); Red Cell Distribution Width 14.7 % (13.2-15.2)
--- NOTE | 2020-11-15 18:30 | XRay Report ---
CHEST 1 VIEW 11/15/2020 5:17 PM INDICATION / CLINICAL INFORMATION: sepsis. COMPARISON: 01/24/2019 FINDINGS: SUPPORT DEVICES: None. HEART / MEDIASTINUM: Stable. LUNGS / PLEURA: Mild scattered bibasilar linear opacities suggestive of atelectasis. There is a sligh tly more focal opacity in the right retrocardiac space. Finding could represent developing pneumonia or aspiration. No pneumothorax. ADDITIONAL FINDINGS: No significant additional findings. IMPRESSION: 1. Focal opacity in the right retrocardiac space which could represent aspiration or developing pneum onia. Recommend continued follow-up. Signer Name: Vlad White MD Signed: 11/15/2020 6:25 PM Workstation Name: [id number]
[2020-11-15 18:34] LABS: Alanine Aminotransferase 17 units/L (7-56); Albumin 3.9 g/dL (3.9-5); Blood Urea Nitrogen 10 mg/dL (7-17); Calcium 8.9 mg/dL (8.4-10.2); Hemolysis Index 1
[2020-11-15 18:37] LABS: BUN/Creatinine Ratio 20
[2020-11-15] MEDS ORDERED: VANCOMYCIN 1,500 MG in SODIUM CHLORIDE 0.9% 500 ML 500 ML IV ONE (18:46)
--- NOTE | 2020-11-15 19:08 | Emergency Department Report ---
HPI - General Chief Complaint: Altered Mental Status PUI?: Yes Time Seen by Provider: 11/15/20 17:45 - HPI HPI: 70-year-old female with past medical history significant for prior hemorrhagic CVA with residual right-sided weakness, dementia, and COPD on 2 L of oxygen at home brought in by family due to altered mental status since last night as well as fever discovered this morning. According to the patient's daughter at the [facility], last night around midnight she became altered and nonverbal. The patient was coughing all night long and despite using supplemental oxygen she desatted to the mid 80s occasionally. In the morning when they measured her temperature it was 103.4. She received the first dose of the Covid vaccination 3 weeks ago but has not yet gotten the second dose. No one at home is sick currently. Othe r than becoming nonverbal and coughing/desatting, the patient has not displayed any other symptoms or complaint of chest pain, abdominal pain, nausea, dysuria, frequency, or any other complaints. Further details of the HPI are limited due to the patient's clinical condition. ED Past Medical Hx - Past Medical History Hx Hypertension: Yes Hx CVA: Yes (hemorragic cva 02/2015) Hx COPD: Yes Hx Dementia: No Hx HIV: No Additional medical history: bells palsy, dementia - Social History Smoking Status: Unknown if ever smoked - Medications Home Medications: Home Medications Medication Instructions Recorded Confirmed Last Taken Type Aspirin [Aspirin BABY CHEW TAB] 81 mg PO QDAY #30 tab.chew 01/30/19 11/15/20 11/15/20 Rx amLODIPine 5 mg PO QDAY #30 tablet 01/30/19 11/15/20 11/15/20 Rx hydrALAZINE [Apresoline TAB] 50 mg PO Q8HR #90 tablet 01/30/19 11/15/20 11/15/20 Rx AtorvaSTATin [Lipitor] 80 mg PO DAILY 11/15/20 11/15/20 11/15/20 History ED Review of Systems ROS: Stated complaint: ALTERED MENTAL STATUS Other details as noted in HPI Comment: Unobtainable due to pts medical conditions Physical Exam - Physical Exam Vital Signs: Vital Signs 11/15/20 11/15/20 11/15/20 16:51 17:30 18:41 Temperature 100.1 F H Pulse Rate 120 H 101 H 98 H Respiratory 16 12 Rate Blood Pressure 140/86 143/85 O2 Sat by Pulse 100 100 Oximetry Physical Exam: GENERAL: Nonverbal. HEENT: Normocephalic. Atratumatic. Dry mucous membranes EYES: Extraocular movements are intact. Pupils are equal round and reactive to light bilaterally NECK: Supple. Trachea is midline. LUNGS: Tachypneic in 30s. Equal chest rise bilaterally. There are scattered rales bilaterally but no wheezes or rhonchi. HEART/CARDIOVASCULAR: Regular rate and rhythm. No murmurs or rubs. ABDOMEN: Abdomen is soft and nondistended. Normal bowel sounds. No significant tenderness, guarding or rebound. SKIN: Skin is warm and dry NEURO: Patient is awake but nonverbal. Not following commands. Moving all four extremities with increased rigidity throughout. No significant facial asymmetry MUSCULOSKELETAL: There are no tenderness or deformity noted, although exam ois limited by patient's altered mental status. ED Course Vital Signs 11/15/20 11/15/20 11/15/20 16:51 17:30 18:41 Temperature 100.1 F H Pulse Rate 120 H 101 H 98 H Respiratory 16 12 Rate Blood Pressure 140/86 143/85 O2 Sat by Pulse 100 100 Oximetry - Reevaluation(s) Reevaluation #1: 11/15/20 19:43 Vitals stable with improvement of HR to 90s. Satting 97-100% on 4L. She is able to answer some questions by nodding her head yes or no but refuses to speak still. ED Medical Decision Making - Lab Data Result diagrams: 11/15/20 17:55 11/15/20 Unknown Laboratory Results - last 24 hr 11/15/20 11/15/20 11/15/20 17:55 17:55 17:55 WBC 7.8 RBC 4.55 Hgb 14.0 Hct 41.7 MCV 92 MCH 31 MCHC 34 RDW 14.7 Plt Count 254 Lymph % (Auto) 19.6 [place] % (Auto) 5.1 Eos % (Auto) 0.1 Baso % (Auto) 0.8 Lymph # (Auto) 1.5 [place] # (Auto) 0.4 Eos # (Auto) 0.0 Baso # (Auto) 0.1 Seg Neutrophils % 74.4 H Seg Neutrophils # 5.8 APTT 31.1 D-Dimer Sodium 137 Potassium 3.9 Chloride 101.6 Carbon Dioxide 27 Anion Gap 12 BUN 10 Creatinine 0.5 L Estimated GFR > 60 BUN/Creatinine Ratio 20 Glucose 102 H Lactic Acid Calcium 8.9 Ferritin Total Bilirubin 0.60 AST 19 ALT 17 Alkaline Phosphatase 82 Lactate Dehydrogenase Troponin T C-Reactive Protein NT-Pro-B Natriuret Pep Total Protein 7.4 Albumin 3.9 Albumin/Globulin Ratio 1.1 11/15/20 11/15/20 11/15/20 17:55 Unknown Unknown WBC RBC Hgb Hct MCV MCH MCHC RDW Plt Count Lymph % (Auto) [place] % (Auto) Eos % (Auto) Baso % (Auto) Lymph # (Auto) [place] # (Auto) Eos # (Auto) Baso # (Auto) Seg Neutrophils % Seg Neutrophils # APTT D-Dimer 373.6 H Sodium Potassium Chloride Carbon Dioxide Anion Gap BUN Creatinine Estimated GFR BUN/Creatinine Ratio Glucose 100 Lactic Acid 0.90 Calcium Ferritin Total Bilirubin AST ALT Alkaline Phosphatase Lactate Dehydrogenase 180 Troponin T C-Reactive Protein 0.00 NT-Pro-B Natriuret Pep Total Protein Albumin Albumin/Globulin Ratio 11/15/20 11/15/20 Unknown Unknown WBC RBC Hgb Hct MCV MCH MCHC RDW Plt Count Lymph % (Auto) [place] % (Auto) Eos % (Auto) Baso % (Auto) Lymph # (Auto) [place] # (Auto) Eos # (Auto) Baso # (Auto) Seg Neutrophils % Seg Neutrophils # APTT D-Dimer Sodium Potassium Chloride Carbon Dioxide Anion Gap BUN Creatinine Estimated GFR BUN/Creatinine Ratio Glucose Lactic Acid Calcium Ferritin 382.5 H Total Bilirubin AST ALT Alkaline Phosphatase Lactate Dehydrogenase Troponin T < 0.010 C-Reactive Protein NT-Pro-B Natriuret Pep 106.8 Total Protein Albumin Albumin/Globulin Ratio - EKG Data -: EKG Interpreted by [place] EKG shows normal: sinus rhythm Rate: normal - EKG Data 11/15/20 20:24 Normal sinus rhythm. Left axis deviation. Normal intervals. No significant ST segment or T wave abnormalities. - Radiology Data CHEST 1 VIEW 11/15/2020 5:17 PM INDICATION / CLINICAL INFORMATION: sepsis. COMPARISON: 01/24/2019 FINDINGS: SUPPORT DEVICES: None. HEART / MEDIASTINUM: Stable. LUNGS / PLEURA: Mild scattered bibasilar linear opacities suggestive of atelectasis. There is a slightly more focal opacity in the right retrocardiac s pace. Finding could represent developing pneumonia or aspiration. No pneumothorax. ADDITIONAL FINDINGS: No significant additional findings. IMPRESSION: 1. Focal opacity in the right retrocardiac space which could represent aspiration or developing pneumonia. Recommend continued follow-up. Signer Name: Vlad White MD Signed: 11/15/2020 5:25 PM Workstation Name: [id number] - Medical Decision Making 70-year-old female with history of prior CVA with right-sided weakness, dementia, and COPD on 2 L of supplemental oxygen brought in by EMS after the patient became altered and nonverbal around midnight last night and then spiked a fever of 103.4 this morning. According to the daughter, she was coughing all night long and desatted at various points to the mid 80s despite her supplemental oxygen. On initial assessment, the patient is noted to be tachycardic in the 120s and slightly hypertensive. She is satting in the high 90s on 4 L nasal cannula. Physical exam is notable for an elderly female who is nonverbal and not following commands. She has increased rigidity throughout but no focal neurologic deficits, although this is difficult to assess given her altered mental status. Lung auscultation reveals scattered rales throughout without any wheezing. Code sepsis was initiated with a full set of labs, blood cultures, and urine culture. Will administer 30 mL/kg of IV fluid and broad- spectrum vancomycin and cefepime. In addition, because there is a possible respiratory source we will order COVID-19 PCR test and labs associated with this order. Chest x-ray shows some scattered increased interstitial markings as well as retrocardiac opacity most consistent with pneumonia especially given the clinical context. Labs are fairly unremarkable with the exception of elevated D-dimer which was not ordered to assess for evidence of DVT/PE but was ordered along with COVID-19 testing. The patient will be admitted to telemetry for further observation and management. Critical care attestation.: If time is entered above; I have spent that time in minutes in the direct care of this critically ill patient, excluding procedure time. ED Disposition Clinical Impression: Sepsis, Pneumonia, Hypoxia, Altered mental status Disposition: OP ADMIT IP TO THIS HOSP Is pt being admited?: Yes Condition: Stable
[2020-11-15] MEDS ORDERED: ONDANSETRON 4 MG/2 ML INJ IV PRN (22:19)
[2020-11-15] MEDS ORDERED: METOCLOPRAMIDE 10 MG/2 ML INJ IV PRN (22:19)
[2020-11-15] MEDS ORDERED: MORPHINE 2 MG/1 ML INJ IV PRN (22:19)
--- NOTE | 2020-11-15 22:30 | History and Physical Report ---
History of Present Illness Date of examination: 11/15/20 Date of admission: 11/15/20 19:37 Chief complaint: Fever and altered sensorium since last night. History of present illness: 70-year-old female with past medical history of hemorrhagic CVA with residual right-sided weakness, dementia, COPD on 2 L nasal cannula oxygen brought in by family for altered mental status since last night. Also patient has been having fever. Patient had a temperature 103.5. Patient with altered sensorium. Patient received first dose of Covid vaccination 3 weeks ago but is due for the second dose 1 week later. No one at home is having fever any infections. Patient has become normal verbal and coughing and desaturating. No exacerbating or precipitating factors. The main problem is fever and desaturation and altered mental status. Chest x-ray in the ER revealed right-sided pneumonia which is developing. - Past Medical History -- Hypertension: Yes --CVA: Yes (hemorragic cva 02/2015) --COPD: Yes --Additional medical history: bells palsy, dementia -Past surgical history not available - Social History --Smoking Status: Unknown if ever smoked -Family History Htn - Medications Home Medications: Home Medications Medication Instructions Recorded Confirmed Last Taken Type Aspirin [Aspirin BABY CHEW TAB] 81 mg PO QDAY #30 tab.chew 01/30/19 11/15/20 11/15/20 Rx amLODIPine 5 mg PO QDAY #30 tablet 01/30/19 11/15/20 11/15/20 Rx hydrALAZINE [Apresoline TAB] 50 mg PO Q8HR #90 tablet 01/30/19 11/15/20 11/15/20 Rx AtorvaSTATin [Lipitor] 80 mg PO DAILY 11/15/20 11/15/20 11/15/20 History Review of Systems ROS: Constitutional altered sensorium HEENT no sore throat no post nasal drip no diplopia Neck no neck stiffness no lymph gland enlargement Chest and lungs no shortness of breath cough or wheezing CVS no chest pain no diaphoresis no palpitations GI no nausea no vomiting no diarrhea Genitourinary system no dysuria no flank pain Musculoskeletal system no muscle pains no joint pains 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 Skin no rash no itching Psychiatric no depression no homicidal or suicidal tendencies Hematologic no lymphedema or bruising Endocrine no polydipsia no polyuria no cold intolerance no heat intolerance Medications and Allergies Allergies Allergy/AdvReac Type Severity Reaction Status Date / Time No Known Allergies Allergy Verified 03/15/15 07:34 Home Medications Medication Instructions Recorded Confirmed Last Taken Type Aspirin [Aspirin BABY CHEW TAB] 81 mg PO QDAY #30 tab.chew 01/30/19 11/15/20 11/15/20 Rx amLODIPine 5 mg PO QDAY #30 tablet 01/30/19 11/15/20 11/15/20 Rx hydrALAZINE [Apresoline TAB] 50 mg PO Q8HR #90 tablet 01/30/19 11/15/20 11/15/20 Rx AtorvaSTATin [Lipitor] 80 mg PO DAILY 11/15/20 11/15/20 11/15/20 History Active Meds: Active Medications Acetaminophen (Acetaminophen 325 Mg Tab) 650 mg PO Q4H PRN PRN Reason: Pain MILD(1-3)/Fever >100.5/PABLO Amlodipine Besylate (Amlodipine 5 Mg Tab) 5 mg PO QDAY ELYSIA Aspirin (Aspirin 81 Mg Tab Chew) 81 mg PO QDAY ELYSIA Atorvastatin Calcium (Atorvastatin 40 Mg Tab) 80 mg PO DAILY ELYSIA Famotidine (Famotidine 20 Mg/2 Ml Inj) 20 mg IV BID ELYSIA Hydralazine HCl (Hydralazine 25 Mg Tab) 50 mg PO Q8HR ELYSIA Vancomycin HCl 1,250 mg/ (Sodium Chloride) 275 mls @ 137.5 mls/hr IV Q24H ELYSIA Dextrose/Sodium Chloride (D5ns) 1,000 mls @ 125 mls/hr IV DIRECT ELYSIA Metoclopramide HCl (Metoclopramide 10 Mg/2 Ml Inj) 10 mg IV Q6H PRN PRN Reason: Nausea And Vomiting Morphine Sulfate (Morphine 2 Mg/1 Ml Inj) 2 mg IV Q4H PRN PRN Reason: Pain, Moderate (4-6) Ondansetron HCl (Ondansetron 4 Mg/2 Ml Inj) 4 mg IV Q8H PRN PRN Reason: Nausea And Vomiting Sodium Chloride (Sodium Chloride 0.9% 10 Ml Flush Syringe) 10 ml IV BID [facility] Sodium Chloride (Sodium Chloride 0.9% 10 Ml Flush Syringe) 10 ml IV PRN PRN PRN Reason: LINE FLUSH Exam - Constitutional Vitals: Temp Pulse Resp BP Pulse Ox 100.1 F H 93 H 30 H 127/82 97 11/15/20 16:51 11/15/20 20:00 11/15/20 20:00 11/15/20 20:00 11/15/20 20:00 General appearance: Present: no acute distress, well-nourished - EENT Eyes: Present: PERRL ENT: hearing intact, clear oral mucosa - Neck Neck: Present: supple, normal ROM - Respiratory Respiratory effort: normal Respiratory: bilateral: CTA - Cardiovascular Heart rate: 78 Rhythm: regular Heart Sounds: Present: S1 & S2. Absent: rub, click - Extremities Extremities: no ischemia, pulses symmetrical, No edema, abnormal (Contractures) Peripheral Pulses: within normal limits - Abdominal General gastrointestinal: Present: soft, non-tender, non-distended, normal bowel sounds Female genitourinary: Present: normal - Integumentary Integumentary: Present: clear, warm, dry - Musculoskeletal Musculoskeletal: right sided weakness - Psychiatric Psychiatric: other (Altered sensorium ) - Neurologic Neurologic: CNII-XII intact, moves all extremities - Allied Health Allied health notes reviewed: nursing, case management HEART Score - HEART Score Troponin: Troponin T < 0.010 ng/mL (0.00-0.029) 11/15/20 Unknown Results - Labs CBC & Chem 7: 11/15/20 17:55 11/15/20 Unknown Labs: Laboratory Last Values WBC 7.8 K/mm3 (4.5-11.0) 11/15/20 17:55 RBC 4.55 M/mm3 (3.65-5.03) 11/15/20 17:55 Hgb 14.0 gm/dl (10.1-14.3) 11/15/20 17:55 Hct 41.7 % (30.3-42.9) 11/15/20 17:55 MCV 92 fl (79-97) 11/15/20 17:55 MCH 31 pg (28-32) 11/15/20 17:55 MCHC 34 % (30-34) 11/15/20 17:55 RDW 14.7 % (13.2-15.2) 11/15/20 17:55 Plt Count 254 K/mm3 (140-440) 11/15/20 17:55 Lymph % (Auto) 19.6 % (13.4-35.0) 11/15/20 17:55 [place] % (Auto) 5.1 % (0.0-7.3) 11/15/20 17:55 Eos % (Auto) 0.1 % (0.0-4.3) 11/15/20 17:55 Baso % (Auto) 0.8 % (0.0-1.8) 11/15/20 17:55 Lymph # (Auto) 1.5 K/mm3 (1.2-5.4) 11/15/20 17:55 [place] # (Auto) 0.4 K/mm3 (0.0-0.8) 11/15/20 17:55 Eos # (Auto) 0.0 K/mm3 (0.0-0.4) 11/15/20 17:55 Baso # (Auto) 0.1 K/mm3 (0.0-0.1) 11/15/20 17:55 Seg Neutrophils % 74.4 % (40.0-70.0) H 11/15/20 17:55 Seg Neutrophils # 5.8 K/mm3 (1.8-7.7) 11/15/20 17:55 APTT 31.1 Sec. (24.2-36.6) 11/15/20 17:55 D-Dimer 373.6 ng/mlDDU (0-234) H 11/15/20 Unknown Sodium 137 mmol/L (137-145) 11/15/20 17:55 Potassium 3.9 mmol/L (3.6-5.0) 11/15/20 17:55 Chloride 101.6 mmol/L (98-107) 11/15/20 17:55 Carbon Dioxide 27 mmol/L (22-30) 11/15/20 17:55 Anion Gap 12 mmol/L 11/15/20 17:55 BUN 10 mg/dL (7-17) 11/15/20 17:55 Creatinine 0.5 mg/dL (0.6-1.2) L 11/15/20 17:55 Estimated GFR > 60 ml/min 11/15/20 17:55 BUN/Creatinine Ratio 20 % 11/15/20 17:55 Glucose 100 mg/dL (65-100) 11/15/20 Unknown Lactic Acid 0.70 mmol/L (0.7-2.0) 11/15/20 20:36 Calcium 8.9 mg/dL (8.4-10.2) 11/15/20 17:55 Ferritin 382.5 ng/mL (10.0-200.0) H 11/15/20 Unknown Total Bilirubin 0.60 mg/dL (0.1-1.2) 11/15/20 17:55 AST 19 units/L (5-40) 11/15/20 17:55 ALT 17 units/L (7-56) 11/15/20 17:55 Alkaline Phosphatase 82 units/L (35-129) 11/15/20 17:55 Lactate Dehydrogenase 180 units/L (91-180) 11/15/20 Unknown Troponin T < 0.010 ng/mL (0.00-0.029) 11/15/20 Unknown C-Reactive Protein 0.00 mg/dL (0.00-1.30) 11/15/20 Unknown NT-Pro-B Natriuret Pep 106.8 pg/mL (0-900) 11/15/20 Unknown Total Protein 7.4 g/dL (6.3-8.2) 11/15/20 17:55 Albumin 3.9 g/dL (3.9-5) 11/15/20 17:55 Albumin/Globulin Ratio 1.1 % 11/15/20 17:55 Microbiology: Microbiology 11/15/20 17:55 Peripheral/Venous Blood Culture - Preliminary Culture in Progress 11/15/20 17:55 Peripheral/Venous Blood Culture - Preliminary Culture in Progress - Imaging and Cardiology EKG: report reviewed (Sinus rhythm, heart rate of 97, left axis deviation, anteroseptal infarct age indeterminate.) Chest x-ray: report reviewed Imaging and Cardiology: Chest x-ray Focal opacity in the right retrocardiac space which could represent aspiration or developing pneumonia. Recommend continued follow-up. Assessment and Plan Advance Directives: Yes (Full code) VTE prophylaxis?: Chemical Plan of care discussed with patient/family: Yes - Patient Problems (1) Acute metabolic encephalopathy Current Visit: No Status: Acute Plan to address problem: Secondary to respiratory failure hypoxia and pneumonia IV fluids and IV antibiotics Check head CT (2) Acute respiratory failure with hypoxia Current Visit: Yes Status: Acute Plan to address problem: Patient is oxygen saturations are better on 4 L nasal cannula oxygen (3) Pneumonia Current Visit: Yes Status: Acute Plan to address problem: IV ceftriaxone and IV azithromycin for now Also rule out Covid infection (4) Sepsis Current Visit: Yes Status: Acute Plan to address problem: IV Rocephin and IV Zithromax Repeat chest x-ray in 48 to 72 hours (5) CVA, old, cognitive deficits Current Visit: Yes Status: Chronic Plan to address problem: Supportive care Repeat head CT because of altered sensorium (6) Hypertension Current Visit: Yes Status: Chronic Qualifiers: Hypertension type: essential hypertension Qualified Code(s): I10 - Essential (primary) hypertension Plan to address problem: Continue antihypertensives and adjust medications (7) Hyperlipidemia Current Visit: Yes Status: Chronic Qualifiers: Hyperlipidemia type: mixed hyperlipidemia Qualified Code(s): E78.2 - Mixed hyperlipidemia Plan to address problem: Continue statins (8) DVT prophylaxis Current Visit: Yes Status: Acute Plan to address problem: On heparin and GI prophylaxis
[2020-11-15] MEDS ORDERED: CEFEPIME/NS 2 GM/100 ML 2 GM/100 ML BAG IV SCH (23:00)
[2020-11-15] MEDS: FAMOTIDINE 20 MG/2 ML INJ IV SCH (23:41)
[2020-11-15] MEDS: D5W/0.9% NACL 1,000 ML IV SCH (23:42)
[2020-11-15] MEDS: hydrALAZINE 25 MG TAB PO SCH (23:44)
[2020-11-16] MEDS: CEFEPIME/NS 2 GM/100 ML 2 GM/100 ML BAG IV SCH ×2 (06:23→16:59)
[2020-11-16] MEDS: hydrALAZINE 25 MG TAB PO SCH ×3 (06:24→22:34)
[2020-11-16 07:42] LABS: Basophils # (Auto) 0.1 K/mm3 (0.0-0.1); Basophils % (Auto) 0.9 % (0.0-1.8); Eosinophils % (Auto) 0.1 % (0.0-4.3); Hematocrit 38.7 % (30.3-42.9); Hemoglobin 13.2 gm/dl (10.1-14.3); Lymphocytes # (Auto) 1.5 K/mm3 (1.2-5.4); Lymphocytes % (Auto) 16.8 % (13.4-35.0); Mean Corpuscular HGB Conc 34 % (30-34); Mean Corpuscular Volume 91 fl (79-97); Monocytes # (Auto) 0.7 K/mm3 (0.0-0.8); Monocytes % (Auto) 7.4 % (0.0-7.3); Platelet Count 250 K/mm3 (140-440); Red Blood Count 4.27 M/mm3 (3.65-5.03); Red Cell Distribution Width 14.3 % (13.2-15.2)
[2020-11-16 08:09] LABS: Alanine Aminotransferase 14 units/L (7-56); Albumin 3.7 g/dL (3.9-5); Blood Urea Nitrogen 6 mg/dL (7-17); Calcium 8.5 mg/dL (8.4-10.2); Hemolysis Index 4
[2020-11-16 08:12] LABS: BUN/Creatinine Ratio 12
[2020-11-16] MEDS: ASPIRIN 81 MG TAB CHEW PO SCH ×2 (09:46→10:12)
[2020-11-16] MEDS: FAMOTIDINE 20 MG/2 ML INJ IV SCH ×2 (09:46→22:34)
[2020-11-16] MEDS: ACETAMINOPHEN 325 MG TAB PO PRN (09:46)
[2020-11-16] MEDS: amLODIPine 5 MG TAB PO SCH ×2 (09:47→10:11)
--- NOTE | 2020-11-16 09:47 | Cat Scan Report ---
CT head/brain wo con INDICATION: Rec Seizures. TECHNIQUE: Routine CT head. All CT scans at this location are performed using CT dose reduction for A WALKER by means of automated exposure control. COMPARISON: MRI brain 01/28/2019 FINDINGS: Intracranial: -white matter differentiation is maintained. No intracranial hemorrhage. No extra a xial collection. No hydrocephalus.. Periventricular and centrum semiovale white matter hypoattenuatio n most consistent with sequela of chronic microvascular disease. This correlates to the T2 signal hyp erintensity seen on prior MRI. No herniation. Sinuses: Mastoid effusion.. Orbits: Globes are intact. Calvarium: No acute fracture. IMPRESSION: 1. No acute intracranial abnormality. Signer Name: Torey Hughes MD Signed: 11/16/2020 9:43 AM Workstation Name: [id number]
[2020-11-16] MEDS ORDERED: hydrALAZINE 20 MG/1 ML INJ IV PRN (10:30)
[2020-11-16] MEDS: ACETAMINOPHEN 325 MG RECT SUPP PR PRN ×2 (11:50→18:03)
[2020-11-16] MEDS: D5W/0.9% NACL 1,000 ML IV SCH ×2 (11:51→22:36)
--- NOTE | 2020-11-16 13:31 | Progress Note ---
Assessment and Plan Assessment and plan: Assessment and plan Advance Directives: Yes (Full code) VTE prophylaxis?: Chemical Plan of care discussed with patient/family: Yes - Patient Problems (1) Acute metabolic encephalopathy Current Visit: No Status: Acute Plan to address problem: Secondary to respiratory failure hypoxia and pneumonia IV fluids and IV antibiotics Check head CT (2) Acute respiratory failure with hypoxia Current Visit: Yes Status: Acute Plan to address problem: Currently on 4 L of nasal cannula oxygen Continue oxygen supplementation (3) Pneumonia, community-acquired Current Visit: Yes Status: Acute Plan to address problem: IV ceftriaxone and IV azithromycin for now Also rule out Covid infection (4) Sepsis secondary to committee acquired pneumonia Current Visit: Yes Status: Acute Plan to address problem: IV Rocephin and IV Zithromax (5) CVA, old, cognitive deficits Current Visit: Yes Status: Chronic Plan to address problem: Supportive care Repeat CT of the head (6) Hypertension Current Visit: Yes Status: Chronic Qualifiers: Hypertension type: essential hypertension Qualified Code(s): I10 - Essential (primary) hypertension Plan to address problem: Continue amlodipine IV hydralazine with parameters (7) Hyperlipidemia Current Visit: Yes Status: Chronic Qualifiers: Hyperlipidemia type: mixed hyperlipidemia Qualified Code(s): E78.2 - Mixed hyperlipidemia Plan to address problem: Continue statins (8) DVT prophylaxis Current Visit: Yes Status: Acute Plan to address problem: On heparin and GI prophylaxis CODE STATUS: Full Disposition: Continue treatment for pneumonia and rule out Covid infection. History Interval history: 11/16/2020: Patient seen and examined, patient is nonverbal, looking around the room, no distress. Spoke with the nurse today, patient is not taking any oral medication or eating. Patient febrile overnight. Hospitalist Physical - Physical exam Narrative exam: General appearance: no acute distress, well-nourished EENT: PERRL, EOM intact, hearing intact, dry oral mucosa Neck: Present: supple, normal ROM Respiratory: bilateral CTA, negative: rales, rhonchi, wheezing Cardiovascular: Regular rate/rhythm, Normal S1 & S2. No gallop, rub Extremities: no ischemia, No edema, normal temperature, normal color Abdominal: soft, no tenderness, non-distended, normal bowel sounds Integumentary: Present: clear, warm, dry no wounds, no erythema noted Psychiatric: appropriate mood/affect, intact judgment & insight Neurologic: CNII-XII intact, moves all extremities, no sensory or motor abnormalities - Constitutional Vitals: Temp Pulse Resp BP Pulse Ox 101.7 F H 96 H 18 149/77 90 11/16/20 09:49 11/16/20 10:11 11/16/20 05:34 11/16/20 10:11 11/16/20 09:49 General appearance: Present: no acute distress, well-nourished HEART Score - HEART Score Troponin: Troponin T < 0.010 ng/mL (0.00-0.029) 11/15/20 Unknown Results - Labs CBC & Chem 7: 11/16/20 06:38 11/16/20 06:38 Labs: Laboratory Last Values WBC 9.0 K/mm3 (4.5-11.0) 11/16/20 06:38 RBC 4.27 M/mm3 (3.65-5.03) 11/16/20 06:38 Hgb 13.2 gm/dl (10.1-14.3) 11/16/20 06:38 Hct 38.7 % (30.3-42.9) 11/16/20 06:38 MCV 91 fl (79-97) 11/16/20 06:38 MCH 31 pg (28-32) 11/16/20 06:38 MCHC 34 % (30-34) 11/16/20 06:38 RDW 14.3 % (13.2-15.2) 11/16/20 06:38 Plt Count 250 K/mm3 (140-440) 11/16/20 06:38 Lymph % (Auto) 16.8 % (13.4-35.0) 11/16/20 06:38 [place] % (Auto) 7.4 % (0.0-7.3) H 11/16/20 06:38 Eos % (Auto) 0.1 % (0.0-4.3) 11/16/20 06:38 Baso % (Auto) 0.9 % (0.0-1.8) 11/16/20 06:38 Lymph # (Auto) 1.5 K/mm3 (1.2-5.4) 11/16/20 06:38 [place] # (Auto) 0.7 K/mm3 (0.0-0.8) 11/16/20 06:38 Eos # (Auto) 0.0 K/mm3 (0.0-0.4) 11/16/20 06:38 Baso # (Auto) 0.1 K/mm3 (0.0-0.1) 11/16/20 06:38 Seg Neutrophils % 74.8 % (40.0-70.0) H 11/16/20 06:38 Seg Neutrophils # 6.7 K/mm3 (1.8-7.7) 11/16/20 06:38 APTT 31.1 Sec. (24.2-36.6) 11/15/20 17:55 D-Dimer 373.6 ng/mlDDU (0-234) H 11/15/20 Unknown Sodium 137 mmol/L (137-145) 11/16/20 06:38 Potassium 3.6 mmol/L (3.6-5.0) 11/16/20 06:38 Chloride 101.8 mmol/L (98-107) 11/16/20 06:38 Carbon Dioxide 26 mmol/L (22-30) 11/16/20 06:38 Anion Gap 13 mmol/L 11/16/20 06:38 BUN 6 mg/dL (7-17) L 11/16/20 06:38 Creatinine 0.5 mg/dL (0.6-1.2) L 11/16/20 06:38 Estimated GFR > 60 ml/min 11/16/20 06:38 BUN/Creatinine Ratio 12 % 11/16/20 06:38 Glucose 141 mg/dL (65-100) H 11/16/20 06:38 Hemoglobin A1c 5.5 % (4-6) 11/16/20 06:38 Lactic Acid 0.70 mmol/L (0.7-2.0) 11/15/20 20:36 Calcium 8.5 mg/dL (8.4-10.2) 11/16/20 06:38 Ferritin 382.5 ng/mL (10.0-200.0) H 11/15/20 Unknown Total Bilirubin 0.70 mg/dL (0.1-1.2) 11/16/20 06:38 AST 18 units/L (5-40) 11/16/20 06:38 ALT 14 units/L (7-56) 11/16/20 06:38 Alkaline Phosphatase 76 units/L (35-129) 11/16/20 06:38 Lactate Dehydrogenase 180 units/L (91-180) 11/15/20 Unknown Troponin T < 0.010 ng/mL (0.00-0.029) 11/15/20 Unknown C-Reactive Protein 0.00 mg/dL (0.00-1.30) 11/15/20 Unknown NT-Pro-B Natriuret Pep 106.8 pg/mL (0-900) 11/15/20 Unknown Total Protein 7.1 g/dL (6.3-8.2) 11/16/20 06:38 Albumin 3.7 g/dL (3.9-5) L 11/16/20 06:38 Albumin/Globulin Ratio 1.1 % 11/16/20 06:38 Microbiology: Microbiology 11/15/20 17:55 Peripheral/Venous Blood Culture - Preliminary Culture in Progress 11/15/20 17:55 Peripheral/Venous Blood Culture - Preliminary Culture in Progress Patino/IV: Voiding Method Incontinent Active Medications - Current Medications Current Medications: Generic Name Dose Route Start Last Admin Trade Name Freq PRN Reason Stop Dose Admin Acetaminophen 650 mg 11/15/20 22:19 Acetaminophen 325 Mg Tab PO Q4H PRN Pain MILD(1-3)/Fever >100.5/PABLO Acetaminophen 325 mg 11/16/20 10:30 11/16/20 11:50 Acetaminophen 325 Mg Rect Supp [place] 325 mg Q6H PRN Administration Fever >101 Amlodipine Besylate 5 mg 11/16/20 10:00 11/16/20 10:11 Amlodipine 5 Mg Tab PO Not Given QDAY [facility] Aspirin 81 mg 11/16/20 10:00 11/16/20 10:12 Aspirin 81 Mg Tab Chew PO Not Given QDAY [facility] Atorvastatin Calcium 80 mg 11/16/20 10:00 11/16/20 10:12 Atorvastatin 40 Mg Tab PO Not Given DAILY [facility] Famotidine 20 mg 11/15/20 23:00 11/16/20 09:46 Famotidine 20 Mg/2 Ml Inj IV 20 mg BID ELYSIA Administration Hydralazine HCl 50 mg 11/15/20 23:00 11/16/20 06:24 Hydralazine 25 Mg Tab PO Not Given Q8HR [facility] Hydralazine HCl 10 mg 11/16/20 10:30 Hydralazine 20 Mg/1 Ml Inj IV Q4HR PRN Blood Pressure Vancomycin HCl 1,250 mg/ 275 mls @ 137.5 mls/hr 11/16/20 18:00 Sodium Chloride IV Q24H ELYSIA Dextrose/Sodium Chloride 1,000 mls @ 125 mls/hr 11/15/20 23:00 11/16/20 11:51 D5ns IV 125 mls/hr DIRECT ELYSIA Administration Cefepime HCl 2 gm in 100 mls @ 200 mls/hr 11/16/20 06:00 11/16/20 06:23 Cefepime/Ns 2 Gm/100 Ml IV 200 mls/hr Q12H ELYSIA Administration Protocol Metoclopramide HCl 10 mg 11/15/20 22:19 Metoclopramide 10 Mg/2 Ml Inj IV Q6H PRN Nausea And Vomiting Morphine Sulfate 2 mg 11/15/20 22:19 Morphine 2 Mg/1 Ml Inj IV Q4H PRN Pain, Moderate (4-6) Ondansetron HCl 4 mg 11/15/20 22:19 Ondansetron 4 Mg/2 Ml Inj IV Q8H PRN Nausea And Vomiting Sodium Chloride 10 ml 11/16/20 10:00 11/16/20 09:47 Sodium Chloride 0.9% 10 Ml Flush Syringe IV 10 ml BID ELYSIA Administration Sodium Chloride 10 ml 11/15/20 22:19 Sodium Chloride 0.9% 10 Ml Flush Syringe IV PRN PRN LINE FLUSH Nutrition/Malnutrition Assess - Dietary Evaluation Nutrition/Malnutrition Findings: Nutrition Notes Start: 11/16/20 10:14 Freq: Status: Active Protocol: Document 11/16/20 10:14 LP (Rec: 11/16/20 10:19 LP [id number]) Nutrition Notes Need for Assessment generated from: certified court interpreter Initial or Follow up Assessment Current Diagnosis COPD,Sepsis,Hypertension, Respiratory Failure,Stroke Other Pertinent Diagnosis Dementia, pneu Current Diet Cardiac Labs/Tests Reviewed Pertinent Medications D5NS at 125ml/hr Height 5 ft 5 in Weight 72 kg [place] Body Weight (kg) 56.81 BMI 26.4 Weight Status Overweight Subjective/Other Information Screen for skin risk (12). No wounds noted. Pt with dementia . Burn Absent Trauma Absent GI Symptoms None Minimum of two criteria No physical signs of malnutrition #1 Nutrition Diagnosis Predicted suboptimal energy intake Etiology Advance age/dementia As Evidenced by Signs and Symptoms Unable to gather nutrition hx Is patient on ventilator? No Is Patient Ambulatory and/or Out of Bed No REE-([facility]-confined to bed) 1483.104 Calculation Used for Recommendations [facility] Additional Notes Protein needs are 72-86g (1-1. 2g/kg) Fluid needs are 1ml/kcal Nutrition Intervention Change Diet Order: Continue cardiac Add Supplement/Snack (indicate name/kcal Ensure Enlive BID /protein ) Provides kCal: 700 Provides Protein (gm) 40 Goal #1 Meet at least 80% of kcal and protein needs Anticipated Discharge Needs: Cardiac diet and ONS as needed Follow-Up By: 11/18/20 Additional Comments Follow for intakes and ONS tolerance
[2020-11-16] MEDS: VANCOMYCIN 1,250 MG in SODIUM CHLORIDE 0.9% 250ML 250 ML IV SCH (17:50)
[2020-11-16 18:23] LABS: Bilirubin,Urine NEG (Negative); Blood,Urine NEG (Negative); Color,Urine Yellow (Yellow); Mucus,Urine FEW /HPF; Protein,Urine <15 mg/dL mg/dL (Negative); RBC,Urine < 1.0 /HPF (0.0-6.0); Urobilinogen,Urine < 2.0 mg/dL (<2.0)
[2020-11-17 05:47] LABS: Basophils # (Auto) 0.1 K/mm3 (0.0-0.1); Basophils % (Auto) 0.6 % (0.0-1.8); Eosinophils % (Auto) 0.2 % (0.0-4.3); Hematocrit 38.1 % (30.3-42.9); Lymphocytes # (Auto) 1.9 K/mm3 (1.2-5.4); Lymphocytes % (Auto) 18.9 % (13.4-35.0); Mean Corpuscular HGB Conc 34 % (30-34); Mean Corpuscular Volume 90 fl (79-97); Monocytes # (Auto) 0.9 K/mm3 (0.0-0.8); Monocytes % (Auto) 9.1 % (0.0-7.3); Platelet Count 226 K/mm3 (140-440); Red Blood Count 4.24 M/mm3 (3.65-5.03); Red Cell Distribution Width 14.1 % (13.2-15.2)
[2020-11-17] MEDS: CEFEPIME/NS 2 GM/100 ML 2 GM/100 ML BAG IV SCH ×2 (05:57→17:10)
[2020-11-17] MEDS: hydrALAZINE 25 MG TAB PO SCH ×4 (05:58→23:08)
[2020-11-17 06:04] LABS: Blood Urea Nitrogen 6 mg/dL (7-17); Calcium 8.5 mg/dL (8.4-10.2); Hemolysis Index 27
[2020-11-17 06:11] LABS: BUN/Creatinine Ratio 12
--- NOTE | 2020-11-17 08:50 | Progress Note ---
Assessment and Plan Assessment and plan: 70-year-old -[place]ish female with a past medical history as below who presented with acute encephalopathy and sudden aphasia. Patient is being treated for acute community-acquired pneumonia and work-up for altered mental status at this time. Assessment and plan Advance Directives: Yes (Full code) VTE prophylaxis?: Chemical Plan of care discussed with patient/family: Yes - Patient Problems Acute metabolic encephalopathy Current Visit: No Status: Acute Plan to address problem: Secondary to respiratory failure hypoxia and pneumonia IV fluids and IV antibiotics Head CT without any acute abnormalities We will obtain MRI of the brain to rule out stroke Acute respiratory failure with hypoxia Current Visit: Yes Status: Acute Plan to address problem: Currently on 3 L of nasal cannula oxygen Continue oxygen supplementation Pneumonia, community-acquired Current Visit: Yes Status: Acute Plan to address problem: IV ceftriaxone and IV azithromycin for now Covid infection negative. Sepsis secondary to community-acquired pneumonia acquired pneumonia Current Visit: Yes Status: Acute Plan to address problem: IV Rocephin and IV Zithromax Acute dysphagia Decreased p.o. intake, patient on fluids Speech therapy consulted MRI to rule out acute CVA If this continues, will need to speak with the patient's family pertaining to PEG tube placement depending upon speech therapy recommendations CVA, old, cognitive deficits Current Visit: Yes Status: Chronic Plan to address problem: Supportive care Repeat CT of the head without any abnormalities of acute CVA We will obtain MRI to rule out acute CVA Hypertension Current Visit: Yes Status: Chronic Qualifiers: Hypertension type: essential hypertension Qualified Code(s): I10 - Essential (primary) hypertension Plan to address problem: Continue amlodipine IV hydralazine with parameters Hyperlipidemia Current Visit: Yes Status: Chronic Qualifiers: Hyperlipidemia type: mixed hyperlipidemia Qualified Code(s): E78.2 - Mixed hyperlipidemia Plan to address problem: Continue statins DVT prophylaxis Current Visit: Yes Status: Acute Plan to address problem: On heparin and GI prophylaxis CODE STATUS: Full Disposition: Continue treatment for commune acquired pneumonia with IV antibiotics. Patient continues to be aphasic, decreased p.o. intake, will obtain MRI to rule out acute CVA. Unfortunately this may be the patient's new baseline and we will have to speak with the family pertaining to nutrition if the patient does not eat. History Interval history: 11/16/2020: Patient seen and examined, patient is nonverbal, looking around the room, no distress. Spoke with the nurse today, patient is not taking any oral medication or eating. Patient febrile overnight. 11/16/2020: Patient seen this morning, continues to be nonverbal, no overnight events, patient afebrile. Covid is negative. Updated the family yesterday pertaining to the patient's condition. Hospitalist Physical - Physical exam Narrative exam: General appearance: no acute distress, well-nourished EENT: PERRL, EOM intact, hearing intact, dry oral mucosa Respiratory: bilateral CTA, negative: rales, rhonchi, wheezing Cardiovascular: Regular rate/rhythm, Normal S1 & S2. No gallop, rub Extremities: no ischemia, No edema, normal temperature, normal color Abdominal: soft, no tenderness, non-distended, normal bowel sounds Integumentary: Present: clear, warm, dry no wounds, no erythema noted Psychiatric: Flat affect, no response to verbal questions or cues. Neurologic: CNII-XII intact, aphasic, moves all extremities - Constitutional Vitals: Temp Pulse Resp BP Pulse Ox 99.4 F 83 16 136/78 92 11/17/20 04:05 11/17/20 04:05 11/17/20 04:05 11/17/20 04:05 11/17/20 04:05 General appearance: Present: no acute distress, well-nourished HEART Score - HEART Score Troponin: Troponin T < 0.010 ng/mL (0.00-0.029) 11/15/20 Unknown Results - Labs CBC & Chem 7: 11/17/20 05:11 11/17/20 05:11 Labs: Laboratory Last Values WBC 10.0 K/mm3 (4.5-11.0) 11/17/20 05:11 RBC 4.24 M/mm3 (3.65-5.03) 11/17/20 05:11 Hgb 13.0 gm/dl (10.1-14.3) 11/17/20 05:11 Hct 38.1 % (30.3-42.9) 11/17/20 05:11 MCV 90 fl (79-97) 11/17/20 05:11 MCH 31 pg (28-32) 11/17/20 05:11 MCHC 34 % (30-34) 11/17/20 05:11 RDW 14.1 % (13.2-15.2) 11/17/20 05:11 Plt Count 226 K/mm3 (140-440) 11/17/20 05:11 Lymph % (Auto) 18.9 % (13.4-35.0) 11/17/20 05:11 [place] % (Auto) 9.1 % (0.0-7.3) H 11/17/20 05:11 Eos % (Auto) 0.2 % (0.0-4.3) 11/17/20 05:11 Baso % (Auto) 0.6 % (0.0-1.8) 11/17/20 05:11 Lymph # (Auto) 1.9 K/mm3 (1.2-5.4) 11/17/20 05:11 [place] # (Auto) 0.9 K/mm3 (0.0-0.8) H 11/17/20 05:11 Eos # (Auto) 0.0 K/mm3 (0.0-0.4) 11/17/20 05:11 Baso # (Auto) 0.1 K/mm3 (0.0-0.1) 11/17/20 05:11 Seg Neutrophils % 71.2 % (40.0-70.0) H 11/17/20 05:11 Seg Neutrophils # 7.2 K/mm3 (1.8-7.7) 11/17/20 05:11 APTT 31.1 Sec. (24.2-36.6) 11/15/20 17:55 D-Dimer 373.6 ng/mlDDU (0-234) H 11/15/20 Unknown Sodium 136 mmol/L (137-145) L 11/17/20 05:11 Potassium 3.6 mmol/L (3.6-5.0) 11/17/20 05:11 Chloride 99.9 mmol/L (98-107) 11/17/20 05:11 Carbon Dioxide 27 mmol/L (22-30) 11/17/20 05:11 Anion Gap 13 mmol/L 11/17/20 05:11 BUN 6 mg/dL (7-17) L 11/17/20 05:11 Creatinine 0.5 mg/dL (0.6-1.2) L 11/17/20 05:11 Estimated GFR > 60 ml/min 11/17/20 05:11 BUN/Creatinine Ratio 12 % 11/17/20 05:11 Glucose 135 mg/dL (65-100) H 11/17/20 05:11 POC Glucose 115 mg/dL (70-105) H 11/16/20 21:04 Hemoglobin A1c 5.5 % (4-6) 11/16/20 06:38 Lactic Acid 0.70 mmol/L (0.7-2.0) 11/15/20 20:36 Calcium 8.5 mg/dL (8.4-10.2) 11/17/20 05:11 Ferritin 382.5 ng/mL (10.0-200.0) H 11/15/20 Unknown Total Bilirubin 0.70 mg/dL (0.1-1.2) 11/16/20 06:38 AST 18 units/L (5-40) 11/16/20 06:38 ALT 14 units/L (7-56) 11/16/20 06:38 Alkaline Phosphatase 76 units/L (35-129) 11/16/20 06:38 Lactate Dehydrogenase 180 units/L (91-180) 11/15/20 Unknown Troponin T < 0.010 ng/mL (0.00-0.029) 11/15/20 Unknown C-Reactive Protein 0.00 mg/dL (0.00-1.30) 11/15/20 Unknown NT-Pro-B Natriuret Pep 106.8 pg/mL (0-900) 11/15/20 Unknown Total Protein 7.1 g/dL (6.3-8.2) 11/16/20 06:38 Albumin 3.7 g/dL (3.9-5) L 11/16/20 06:38 Albumin/Globulin Ratio 1.1 % 11/16/20 06:38 Procalcitonin < 0.05 ng/mL (<0.15) 11/15/20 Unknown Urine Color Yellow (Yellow) 11/16/20 Unknown Urine Turbidity Clear (Clear) 11/16/20 Unknown Urine pH 6.0 (5.0-7.0) 11/16/20 Unknown Ur Specific [place] 1.014 (1.003-1.030) 11/16/20 Unknown Urine Protein <15 mg/dl mg/dL (Negative) 11/16/20 Unknown Urine Glucose (UA) Neg mg/dL (Negative) 11/16/20 Unknown Urine Ketones Neg mg/dL (Negative) 11/16/20 Unknown Urine Blood Neg (Negative) 11/16/20 Unknown Urine Nitrite Neg (Negative) 11/16/20 Unknown Urine Bilirubin Neg (Negative) 11/16/20 Unknown Urine Urobilinogen < 2.0 mg/dL (<2.0) 11/16/20 Unknown Ur Leukocyte Esterase Neg (Negative) 11/16/20 Unknown Urine WBC (Auto) 1.0 /HPF (0.0-6.0) 11/16/20 Unknown Urine RBC (Auto) < 1.0 /HPF (0.0-6.0) 11/16/20 Unknown U Epithel Cells (Auto) 1.0 /HPF (0-13.0) 11/16/20 Unknown Urine Mucus Few /HPF 11/16/20 Unknown Coronavirus (PCR) Negative (Negative) 11/16/20 Unknown Microbiology: Microbiology 11/15/20 17:55 Peripheral/Venous Blood Culture - Preliminary NO GROWTH AFTER 24 HOURS 11/15/20 17:55 Peripheral/Venous Blood Culture - Preliminary NO GROWTH AFTER 24 HOURS Patino/IV: Voiding Method External Female Catheter Active Medications - Current Medications Current Medications: Generic Name Dose Route Start Last Admin Trade Name Freq PRN Reason Stop Dose Admin Acetaminophen 650 mg 11/15/20 22:19 Acetaminophen 325 Mg Tab PO Q4H PRN Pain MILD(1-3)/Fever >100.5/PABLO Acetaminophen 325 mg 11/16/20 10:30 11/16/20 18:03 Acetaminophen 325 Mg Rect Supp [place] 325 mg Q6H PRN Administration Fever >101 Amlodipine Besylate 5 mg 11/16/20 10:00 11/16/20 10:11 Amlodipine 5 Mg Tab PO Not Given QDAY ELYSIA Aspirin 81 mg 11/16/20 10:00 11/16/20 10:12 Aspirin 81 Mg Tab Chew PO Not Given QDAY [facility] Atorvastatin Calcium 80 mg 11/16/20 10:00 11/16/20 10:12 Atorvastatin 40 Mg Tab PO Not Given DAILY ELYSIA Famotidine 20 mg 11/15/20 23:00 11/16/20 22:34 Famotidine 20 Mg/2 Ml Inj IV 20 mg BID ELYSIA Administration Hydralazine HCl 50 mg 11/15/20 23:00 11/17/20 06:17 Hydralazine 25 Mg Tab PO Not Given Q8HR ELYSIA Hydralazine HCl 10 mg 11/16/20 10:30 Hydralazine 20 Mg/1 Ml Inj IV Q4HR PRN Blood Pressure Vancomycin HCl 1,250 mg/ 275 mls @ 137.5 mls/hr 11/16/20 18:00 11/16/20 17:50 Sodium Chloride IV 137.5 mls/hr Q24H ELYSIA Administration Dextrose/Sodium Chloride 1,000 mls @ 125 mls/hr 11/15/20 23:00 11/16/20 22:36 D5ns IV 125 mls/hr DIRECT ELYSIA Administration Cefepime HCl 2 gm in 100 mls @ 200 mls/hr 11/16/20 06:00 11/17/20 05:57 Cefepime/Ns 2 Gm/100 Ml IV 200 mls/hr Q12H ELYSIA Administration Protocol Metoclopramide HCl 10 mg 11/15/20 22:19 Metoclopramide 10 Mg/2 Ml Inj IV Q6H PRN Nausea And Vomiting Morphine Sulfate 2 mg 11/15/20 22:19 Morphine 2 Mg/1 Ml Inj IV Q4H PRN Pain, Moderate (4-6) Ondansetron HCl 4 mg 11/15/20 22:19 Ondansetron 4 Mg/2 Ml Inj IV Q8H PRN Nausea And Vomiting Sodium Chloride 10 ml 11/16/20 10:00 11/16/20 22:34 Sodium Chloride 0.9% 10 Ml Flush Syringe IV 10 ml BID ELYSIA Administration Sodium Chloride 10 ml 11/15/20 22:19 Sodium Chloride 0.9% 10 Ml Flush Syringe IV PRN PRN LINE FLUSH Nutrition/Malnutrition Assess - Dietary Evaluation Nutrition/Malnutrition Findings: Nutrition Notes Start: 11/16/20 10:14 Freq: Status: Active Protocol: Document 11/16/20 10:14 LP (Rec: 11/16/20 10:19 LP [id number]) Nutrition Notes Need for Assessment generated from: [email or web address] developer Initial or Follow up Assessment Current Diagnosis COPD,Sepsis,Hypertension, Respiratory Failure,Stroke Other Pertinent Diagnosis Dementia, pneu Current Diet Cardiac Labs/Tests Reviewed Pertinent Medications D5NS at 125ml/hr Height 5 ft 5 in Weight 72 kg [place] Body Weight (kg) 56.81 BMI 26.4 Weight Status Overweight Subjective/Other Information Screen for skin risk (12). No wounds noted. Pt with dementia . Burn Absent Trauma Absent GI Symptoms None Minimum of two criteria No physical signs of malnutrition #1 Nutrition Diagnosis Predicted suboptimal energy intake Etiology Advance age/dementia As Evidenced by Signs and Symptoms Unable to gather nutrition hx Is patient on ventilator? No Is Patient Ambulatory and/or Out of Bed No REE-([facility] [place]-confined to bed) 1483.104 Calculation Used for Recommendations [facility] Additional Notes Protein needs are 72-86g (1-1. 2g/kg) Fluid needs are 1ml/kcal Nutrition Intervention Change Diet Order: Continue cardiac Add Supplement/Snack (indicate name/kcal Ensure Enlive BID /protein ) Provides kCal: 700 Provides Protein (gm) 40 Goal #1 Meet at least 80% of kcal and protein needs Anticipated Discharge Needs: Cardiac diet and ONS as needed Follow-Up By: 11/18/20 Additional Comments Follow for intakes and ONS tolerance
[2020-11-17] MEDS: amLODIPine 5 MG TAB PO SCH (10:17)
[2020-11-17] MEDS: ASPIRIN 81 MG TAB CHEW PO SCH (10:18)
[2020-11-17] MEDS: FAMOTIDINE 20 MG/2 ML INJ IV SCH ×2 (10:20→23:02)
[2020-11-17] MEDS: D5W/0.9% NACL 1,000 ML IV SCH (13:12)
[2020-11-17] MEDS: ACETAMINOPHEN 325 MG RECT SUPP PR PRN (17:09)
[2020-11-17] MEDS: VANCOMYCIN 1,250 MG in SODIUM CHLORIDE 0.9% 250ML 250 ML IV SCH (18:19)
[2020-11-18] MEDS: D5W/0.9% NACL 1,000 ML IV SCH ×2 (00:20→10:28)
[2020-11-18] MEDS: CEFEPIME/NS 2 GM/100 ML 2 GM/100 ML BAG IV SCH ×2 (05:18→17:55)
[2020-11-18 05:27] LABS: Hematocrit 36.1 % (30.3-42.9); Hemoglobin 12.3 gm/dl (10.1-14.3); Mean Corpuscular HGB Conc 34 % (30-34); Mean Corpuscular Volume 91 fl (79-97); Platelet Count 199 K/mm3 (140-440); Red Blood Count 3.98 M/mm3 (3.65-5.03); Red Cell Distribution Width 13.9 % (13.2-15.2)
[2020-11-18 05:48] LABS: Blood Urea Nitrogen 5 mg/dL (7-17); Calcium 8.3 mg/dL (8.4-10.2); Hemolysis Index 9
[2020-11-18 05:49] LABS: BUN/Creatinine Ratio 10
[2020-11-18] MEDS: hydrALAZINE 25 MG TAB PO SCH ×3 (06:05→22:02)
--- NOTE | 2020-11-18 07:41 | Consultation ---
History of Present Illness Consult date: 11/18/20 Reason for Consult: encephalopathy History of present illness: Fever and altered sensorium since last night. History of present illness: 70-year-old female with past medical history of hemorrhagic CVA with residual right-sided weakness, dementia, COPD on 2 L nasal cannula oxygen brought in by family for altered mental status since last night. Also patient has been having fever. Patient had a temperature 103.5. Patient with altered sensorium. Patient received first dose of Covid vaccination 3 weeks ago but is due for the second dose 1 week later. No one at home is having fever any infections. Patient has is none verbal and coughing and desaturating. No exacerbating or precipitating factors. The main problem is fever and desaturation and altered mental status. Chest x-ray in the ER revealed right-sided pneumonia which is developing. CT brain is unremarkable - Past Medical History -- Hypertension: Yes --CVA: Yes (hemorragic cva 02/2015) --COPD: Yes --Additional medical history: bells palsy, dementia -Past surgical history not available - Social History --Smoking Status: Unknown if ever smoked -Family History Htn - Medications Home Medications: Home Medications Medication Instructions Recorded Confirmed Last Taken Type Aspirin [Aspirin BABY CHEW TAB] 81 mg PO QDAY #30 tab.chew 01/30/19 11/15/20 11/15/20 Rx amLODIPine 5 mg PO QDAY #30 tablet 01/30/19 11/15/20 11/15/20 Rx hydrALAZINE [Apresoline TAB] 50 mg PO Q8HR #90 tablet 01/30/19 11/15/20 11/15/20 Rx AtorvaSTATin [Lipitor] 80 mg PO DAILY 11/15/20 11/15/20 11/15/20 History Review of Systems ROS: Constitutional altered sensorium HEENT no sore throat no post nasal drip no diplopia Neck no neck stiffness no lymph gland enlargement Chest and lungs no shortness of breath cough or wheezing CVS no chest pain no diaphoresis no palpitations GI no nausea no vomiting no diarrhea Genitourinary system no dysuria no flank pain Musculoskeletal system no muscle pains no joint pains PREP PERSON right-sided weakness Skin no rash no itching Psychiatric no depression no homicidal or suicidal tendencies Hematologic no lymphedema or bruising Endocrine no polydipsia no polyuria no cold intolerance no heat intolerance Past History Past Medical History: hypertension, stroke Medications and Allergies Allergies Allergy/AdvReac Type Severity Reaction Status Date / Time No Known Allergies Allergy Verified 03/15/15 07:34 Home Medications Medication Instructions Recorded Confirmed Last Taken Type Aspirin [Aspirin BABY CHEW TAB] 81 mg PO QDAY #30 tab.chew 01/30/19 11/15/20 11/15/20 Rx amLODIPine 5 mg PO QDAY #30 tablet 01/30/19 11/15/20 11/15/20 Rx hydrALAZINE [Apresoline TAB] 50 mg PO Q8HR #90 tablet 01/30/19 11/15/20 11/15/20 Rx AtorvaSTATin [Lipitor] 80 mg PO DAILY 11/15/20 11/15/20 11/15/20 History Active Meds: Active Medications Acetaminophen (Acetaminophen 325 Mg Tab) 650 mg PO Q4H PRN PRN Reason: Pain MILD(1-3)/Fever >100.5/PABLO Acetaminophen (Acetaminophen 325 Mg Rect Supp) 325 mg [place] Q6H PRN PRN Reason: Fever >101 Last Admin: 11/17/20 17:09 Dose: 325 mg Documented by: Amlodipine Besylate (Amlodipine 5 Mg Tab) 5 mg PO QDAY [facility] Last Admin: 11/17/20 10:17 Dose: Not Given Documented by: Aspirin (Aspirin 81 Mg Tab Chew) 81 mg PO QDAY [facility] Last Admin: 11/17/20 10:18 Dose: Not Given Documented by: Atorvastatin Calcium (Atorvastatin 40 Mg Tab) 80 mg PO DAILY [facility] Last Admin: 11/17/20 10:18 Dose: Not Given Documented by: Famotidine (Famotidine 20 Mg/2 Ml Inj) 20 mg IV BID [facility] Last Admin: 11/17/20 23:02 Dose: 20 mg Documented by: Hydralazine HCl (Hydralazine 25 Mg Tab) 50 mg PO Q8HR [facility] Last Admin: 11/18/20 06:05 Dose: Not Given Documented by: Hydralazine HCl (Hydralazine 20 Mg/1 Ml Inj) 10 mg IV Q4HR PRN PRN Reason: Blood Pressure Vancomycin HCl 1,250 mg/ (Sodium Chloride) 275 mls @ 137.5 mls/hr IV Q24H [facility] Last Admin: 11/17/20 18:19 Dose: 137.5 mls/hr Documented by: Dextrose/Sodium Chloride (D5ns) 1,000 mls @ 125 mls/hr IV DIRECT [facility]YSIA Last Admin: 11/18/20 00:20 Dose: 125 mls/hr Documented by: Cefepime HCl (Cefepime/Ns 2 Gm/100 Ml) 2 gm in 100 mls @ 200 mls/hr IV Q12H ELYSIA; Protocol Last Admin: 11/18/20 05:18 Dose: 200 mls/hr Documented by: Metoclopramide HCl (Metoclopramide 10 Mg/2 Ml Inj) 10 mg IV Q6H PRN PRN Reason: Nausea And Vomiting Morphine Sulfate (Morphine 2 Mg/1 Ml Inj) 2 mg IV Q4H PRN PRN Reason: Pain, Moderate (4-6) Ondansetron HCl (Ondansetron 4 Mg/2 Ml Inj) 4 mg IV Q8H PRN PRN Reason: Nausea And Vomiting Sodium Chloride (Sodium Chloride 0.9% 10 Ml Flush Syringe) 10 ml IV BID ELYSIA Last Admin: 11/17/20 22:46 Dose: 10 ml Documented by: Sodium Chloride (Sodium Chloride 0.9% 10 Ml Flush Syringe) 10 ml IV PRN PRN PRN Reason: LINE FLUSH Physical Examination - Vital Signs Vital Signs: Vital Signs Temp Pulse Resp BP Pulse Ox 100.1 F H 120 H 16 140/86 100 11/15/20 16:51 11/15/20 16:51 11/15/20 16:51 11/15/20 16:51 11/15/20 16:51 - Constitutional General appearance: uncomfortable, other (slightly agitated with no clear speech out put) - EENT EENT: Present: PERRL - Respiratory Respiratory: Present: chest non-tender, lungs clear, rhonchi - Cardiovascular Cardiovascular: Present: regular rate, normal S1, normal S2 Extremities: Present: no peripheral edema bilatateraly - Gastrointestinal Gastrointestinal: Present: normoactive bowel sounds - Integumentary Integumentary: Present: normal - Neurologic Cranial nerve examination: PERRL, EOMI, other (she is with left facial droop , no speech out put ? comprehension) Sensorimotor examination: other (right side weakness 3/5 upper and lower left is intact ) Results - Laboratory Findings CBC and BMP: 11/18/20 04:38 11/18/20 04:38 Abnormal Lab Findings: Abnormal Labs 11/15/20 11/15/20 11/15/20 17:55 17:55 Unknown [place] % (Auto) [place] # (Auto) Seg Neutrophils % 74.4 H D-Dimer 373.6 H Sodium Potassium BUN Creatinine 0.5 L Glucose 102 H POC Glucose Calcium Ferritin Albumin 11/15/20 11/16/20 11/16/20 Unknown 06:38 06:38 [place] % (Auto) 7.4 H [place] # (Auto) Seg Neutrophils % 74.8 H D-Dimer Sodium Potassium BUN 6 L Creatinine 0.5 L Glucose 141 H POC Glucose Calcium Ferritin 382.5 H Albumin 3.7 L 11/16/20 11/17/20 11/17/20 21:04 05:11 05:11 [place] % (Auto) 9.1 H [place] # (Auto) 0.9 H Seg Neutrophils % 71.2 H D-Dimer Sodium 136 L Potassium BUN 6 L Creatinine 0.5 L Glucose 135 H POC Glucose 115 H Calcium Ferritin Albumin 11/18/20 04:38 [place] % (Auto) [place] # (Auto) Seg Neutrophils % D-Dimer Sodium Potassium 3.4 L BUN 5 L Creatinine 0.5 L Glucose 124 H POC Glucose Calcium 8.3 L Ferritin Albumin Assessment and Plan 70-year-old female with past medical history of hemorrhagic CVA with residual right-sided weakness, dementia, COPD on 2 L nasal cannula oxygen brought in by family for altered mental status since last night. Also patient has been having fever. Patient had a temperature 103.5. Patient with altered sensorium. Patient received first dose of Covid vaccination 3 weeks ago but is due for the second dose 1 week later. No one at home is having fever any infections. Patient has is none verbal and coughing and desaturating. No exacerbating or precipitating factors. The main problem is fever and desaturation and altered mental status. Chest x-ray in the ER revealed right-sided pneumonia which is developing. CT brain is unremarkable # Acute metabolic encephalopathy Secondary to respiratory failure hypoxia and pneumonia IV fluids and IV antibiotics Check head CT no speech out put ? comprehension -Seizure can not be excluded # CVA, old, cognitive deficits - she is with no clear speech out put ? comprehension -she is with right side weakness ? remote -Now she is with left facial droop -Need MRI brain -Echo -EEG -CTA brain and neck -ASA and lipitor for now -patient monitor -SP and Pt evaluation -NPO # Acute respiratory failure with hypoxia Patient is oxygen saturations are better on 4 L nasal cannula oxygen # Pneumonia IV ceftriaxone and IV azithromycin for now Also rule out Covid infection # Sepsis IV Rocephin and IV Zithromax Repeat chest x-ray in 48 to 72 hours # Hypertension Continue antihypertensives and adjust medications # Hyperlipidemia Continue statins LDL#67 # DVT prophylaxis On heparin and GI prophylaxis will follow
--- NOTE | 2020-11-18 08:43 | XRay Report ---
CHEST 2 VIEWS INDICATION / CLINICAL INFORMATION: pneumonia. COMPARISON: 11/15/2020 FINDINGS: SUPPORT DEVICES: None. HEART / MEDIASTINUM: Cardiomegaly, prominent right hilum LUNGS / PLEURA: Slight increase in interstitial markings No pneumothorax. ADDITIONAL FINDINGS: No significant additional findings. IMPRESSION: Cardiomegaly with mild interstitial prominence that has developed since 11/15/2020. The right hilum is prominent in appearance. Signer Name: Royce Little MD FACR Signed: 11/18/2020 8:39 AM Workstation Name: [id number]
[2020-11-18] MEDS: FAMOTIDINE 20 MG/2 ML INJ IV SCH ×2 (10:28→22:03)
[2020-11-18] MEDS: ASPIRIN 81 MG TAB CHEW PO SCH (10:35)
[2020-11-18] MEDS: amLODIPine 5 MG TAB PO SCH (10:35)
--- NOTE | 2020-11-18 10:37 | Progress Note ---
Assessment and Plan Assessment and plan: 70-year-old -[place] female with a past medical history as below who presented with acute encephalopathy and sudden aphasia. Patient is being treated for acute community-acquired pneumonia and work-up for altered mental status at this time. Assessment and plan Advance Directives: Yes (Full code) VTE prophylaxis?: Chemical Plan of care discussed with patient/family: Yes - Patient Problems Acute metabolic encephalopathy Current Visit: No Status: Acute Plan to address problem: Secondary to respiratory failure hypoxia and pneumonia IV fluids and IV antibiotics Head CT without any acute abnormalities We will obtain MRI of the brain to rule out stroke Neurology has been consulted Acute respiratory failure with hypoxia Current Visit: Yes Status: Acute Plan to address problem: Currently on 3 L of nasal cannula oxygen Continue oxygen supplementation Pneumonia, community-acquired Current Visit: Yes Status: Acute Plan to address problem: IV ceftriaxone and IV azithromycin for now Covid infection negative. Sepsis secondary to community-acquired pneumonia acquired pneumonia Current Visit: Yes Status: Acute Plan to address problem: IV Rocephin and IV Zithromax Patient has been febrile multiple times, consult infectious disease Acute dysphagia Decreased p.o. intake, patient on fluids Speech therapy consulted MRI to rule out acute CVA Family will come in to try to feed the patient today. CVA, old, cognitive deficits Current Visit: Yes Status: Chronic Plan to address problem: Supportive care Repeat CT of the head without any abnormalities of acute CVA We will obtain MRI to rule out acute CVA Neurology consulted for neurological Hypertension Current Visit: Yes Status: Chronic Qualifiers: Hypertension type: essential hypertension Qualified Code(s): I10 - Essential (primary) hypertension Plan to address problem: Continue amlodipine IV hydralazine with parameters Hyperlipidemia Current Visit: Yes Status: Chronic Qualifiers: Hyperlipidemia type: mixed hyperlipidemia Qualified Code(s): E78.2 - Mixed hyperlipidemia Plan to address problem: Continue statins DVT prophylaxis Current Visit: Yes Status: Acute Plan to address problem: On heparin and GI prophylaxis CODE STATUS: Full Disposition: Plan for MRI today, family will come in to try to feed the patient. Discussed NG tube, hold off for now. Deficiencies, ID consulted due to multiple fevers while being treated for pneumonia. History Interval history: 11/16/2020: Patient seen and examined, patient is nonverbal, looking around the room, no distress. Spoke with the nurse today, patient is not taking any oral medication or eating. Patient febrile overnight. 11/16/2020: Patient seen this morning, continues to be nonverbal, no overnight events, patient afebrile. Covid is negative. Updated the family yesterday pertaining to the patient's condition. 11/17/2020: Patient seen this morning, continues to be aphasic, not responsive to verbal cues. But in no acute distress. Patient was febrile overnight 101 fever. Spoke with the family, they will come in and try to feed the patient since she is not taking in any p.o. intake, continues to be on fluids Hospitalist Physical - Physical exam Narrative exam: General appearance: no acute distress, well-nourished EENT: PERRL, EOM intact, hearing intact, dry oral mucosa Respiratory: bilateral CTA, negative: rales, rhonchi, wheezing Cardiovascular: Regular rate/rhythm, Normal S1 & S2. No gallop, rub Extremities: no ischemia, No edema, normal temperature, normal color Abdominal: soft, no tenderness, non-distended, normal bowel sounds Integumentary: Present: clear, warm, dry no wounds, no erythema noted Psychiatric: Flat affect, no response to verbal questions or cues. Neurologic: CNII-XII intact, aphasic, moves all extremities - Constitutional Vitals: Temp Pulse Resp BP Pulse Ox 97.6 F 72 16 127/81 96 11/18/20 10:31 11/18/20 10:31 11/18/20 10:31 11/18/20 10:31 11/18/20 10:31 General appearance: Present: no acute distress, well-nourished HEART Score - HEART Score Troponin: Troponin T < 0.010 ng/mL (0.00-0.029) 11/15/20 Unknown Results - Labs CBC & Chem 7: 11/18/20 04:38 11/18/20 04:38 Labs: Laboratory Last Values WBC 9.7 K/mm3 (4.5-11.0) 11/18/20 04:38 RBC 3.98 M/mm3 (3.65-5.03) 11/18/20 04:38 Hgb 12.3 gm/dl (10.1-14.3) 11/18/20 04:38 Hct 36.1 % (30.3-42.9) 11/18/20 04:38 MCV 91 fl (79-97) 11/18/20 04:38 MCH 31 pg (28-32) 11/18/20 04:38 MCHC 34 % (30-34) 11/18/20 04:38 RDW 13.9 % (13.2-15.2) 11/18/20 04:38 Plt Count 199 K/mm3 (140-440) 11/18/20 04:38 Lymph % (Auto) 18.9 % (13.4-35.0) 11/17/20 05:11 [place] % (Auto) 9.1 % (0.0-7.3) H 11/17/20 05:11 Eos % (Auto) 0.2 % (0.0-4.3) 11/17/20 05:11 Baso % (Auto) 0.6 % (0.0-1.8) 11/17/20 05:11 Lymph # (Auto) 1.9 K/mm3 (1.2-5.4) 11/17/20 05:11 [place] # (Auto) 0.9 K/mm3 (0.0-0.8) H 11/17/20 05:11 Eos # (Auto) 0.0 K/mm3 (0.0-0.4) 11/17/20 05:11 Baso # (Auto) 0.1 K/mm3 (0.0-0.1) 11/17/20 05:11 Seg Neutrophils % 71.2 % (40.0-70.0) H 11/17/20 05:11 Seg Neutrophils # 7.2 K/mm3 (1.8-7.7) 11/17/20 05:11 APTT 31.1 Sec. (24.2-36.6) 11/15/20 17:55 D-Dimer 373.6 ng/mlDDU (0-234) H 11/15/20 Unknown Sodium 140 mmol/L (137-145) 11/18/20 04:38 Potassium 3.4 mmol/L (3.6-5.0) L 11/18/20 04:38 Chloride 104.0 mmol/L (98-107) 11/18/20 04:38 Carbon Dioxide 28 mmol/L (22-30) 11/18/20 04:38 Anion Gap 11 mmol/L 11/18/20 04:38 BUN 5 mg/dL (7-17) L 11/18/20 04:38 Creatinine 0.5 mg/dL (0.6-1.2) L 11/18/20 04:38 Estimated GFR > 60 ml/min 11/18/20 04:38 BUN/Creatinine Ratio 10 % 11/18/20 04:38 Glucose 124 mg/dL (65-100) H 11/18/20 04:38 POC Glucose 115 mg/dL (70-105) H 11/16/20 21:04 Hemoglobin A1c 5.5 % (4-6) 11/16/20 06:38 Lactic Acid 0.70 mmol/L (0.7-2.0) 11/15/20 20:36 Calcium 8.3 mg/dL (8.4-10.2) L 11/18/20 04:38 Ferritin 382.5 ng/mL (10.0-200.0) H 11/15/20 Unknown Total Bilirubin 0.70 mg/dL (0.1-1.2) 11/16/20 06:38 AST 18 units/L (5-40) 11/16/20 06:38 ALT 14 units/L (7-56) 11/16/20 06:38 Alkaline Phosphatase 76 units/L (35-129) 11/16/20 06:38 Lactate Dehydrogenase 180 units/L (91-180) 11/15/20 Unknown Troponin T < 0.010 ng/mL (0.00-0.029) 11/15/20 Unknown C-Reactive Protein 0.00 mg/dL (0.00-1.30) 11/15/20 Unknown NT-Pro-B Natriuret Pep 106.8 pg/mL (0-900) 11/15/20 Unknown Total Protein 7.1 g/dL (6.3-8.2) 11/16/20 06:38 Albumin 3.7 g/dL (3.9-5) L 11/16/20 06:38 Albumin/Globulin Ratio 1.1 % 11/16/20 06:38 Procalcitonin < 0.05 ng/mL (<0.15) 11/15/20 Unknown Urine Color Yellow (Yellow) 11/16/20 Unknown Urine Turbidity Clear (Clear) 11/16/20 Unknown Urine pH 6.0 (5.0-7.0) 11/16/20 Unknown Ur Specific [place] 1.014 (1.003-1.030) 11/16/20 Unknown Urine Protein <15 mg/dl mg/dL (Negative) 11/16/20 Unknown Urine Glucose (UA) Neg mg/dL (Negative) 11/16/20 Unknown Urine Ketones Neg mg/dL (Negative) 11/16/20 Unknown Urine Blood Neg (Negative) 11/16/20 Unknown Urine Nitrite Neg (Negative) 11/16/20 Unknown Urine Bilirubin Neg (Negative) 11/16/20 Unknown Urine Urobilinogen < 2.0 mg/dL (<2.0) 11/16/20 Unknown Ur Leukocyte Esterase Neg (Negative) 11/16/20 Unknown Urine WBC (Auto) 1.0 /HPF (0.0-6.0) 11/16/20 Unknown Urine RBC (Auto) < 1.0 /HPF (0.0-6.0) 11/16/20 Unknown U Epithel Cells (Auto) 1.0 /HPF (0-13.0) 11/16/20 Unknown Urine Mucus Few /HPF 11/16/20 Unknown Coronavirus (PCR) Negative (Negative) 11/16/20 Unknown Microbiology: Microbiology 11/16/20 Unknown Urine,Clean Catch Urine Culture - Preliminary NO GROWTH AFTER 24 HOURS 11/15/20 17:55 Peripheral/Venous Blood Culture - Preliminary NO GROWTH AFTER 48 HOURS 11/15/20 17:55 Peripheral/Venous Blood Culture - Preliminary NO GROWTH AFTER 48 HOURS Patino/IV: Voiding Method External Female Catheter Active Medications - Current Medications Current Medications: Generic Name Dose Route Start Last Admin Trade Name Freq PRN Reason Stop Dose Admin Acetaminophen 650 mg 11/15/20 22:19 Acetaminophen 325 Mg Tab PO Q4H PRN Pain MILD(1-3)/Fever >100.5/PABLO Acetaminophen 325 mg 11/16/20 10:30 11/17/20 17:09 Acetaminophen 325 Mg Rect Supp [place] 325 mg Q6H PRN Administration Fever >101 Amlodipine Besylate 5 mg 11/16/20 10:00 11/17/20 10:17 Amlodipine 5 Mg Tab PO Not Given QDAY COUNTS INCLUDE 234 BEDS AT THE [facility] Aspirin 81 mg 11/16/20 10:00 11/17/20 10:18 Aspirin 81 Mg Tab Chew PO Not Given QDAY ELYSIA Atorvastatin Calcium 80 mg 11/16/20 10:00 11/17/20 10:18 Atorvastatin 40 Mg Tab PO Not Given DAILY ELYSIA Famotidine 20 mg 11/15/20 23:00 11/18/20 10:28 Famotidine 20 Mg/2 Ml Inj IV 20 mg BID ELYSIA Administration Hydralazine HCl 50 mg 11/15/20 23:00 11/18/20 06:05 Hydralazine 25 Mg Tab PO Not Given Q8HR ELYSIA Hydralazine HCl 10 mg 11/16/20 10:30 Hydralazine 20 Mg/1 Ml Inj IV Q4HR PRN Blood Pressure Vancomycin HCl 1,250 mg/ 275 mls @ 137.5 mls/hr 11/16/20 18:00 11/17/20 18:19 Sodium Chloride IV 137.5 mls/hr Q24H ELYSIA Administration Dextrose/Sodium Chloride 1,000 mls @ 125 mls/hr 11/15/20 23:00 11/18/20 10:28 D5ns IV 125 mls/hr DIRECT ELYSIA Administration Cefepime HCl 2 gm in 100 mls @ 200 mls/hr 11/16/20 06:00 11/18/20 05:18 Cefepime/Ns 2 Gm/100 Ml IV 200 mls/hr Q12H ELYSIA Administration Protocol Metoclopramide HCl 10 mg 11/15/20 22:19 Metoclopramide 10 Mg/2 Ml Inj IV Q6H PRN Nausea And Vomiting Morphine Sulfate 2 mg 11/15/20 22:19 Morphine 2 Mg/1 Ml Inj IV Q4H PRN Pain, Moderate (4-6) Ondansetron HCl 4 mg 11/15/20 22:19 Ondansetron 4 Mg/2 Ml Inj IV Q8H PRN Nausea And Vomiting Sodium Chloride 10 ml 11/16/20 10:00 11/17/20 22:46 Sodium Chloride 0.9% 10 Ml Flush Syringe IV 10 ml BID ELYSIA Administration Sodium Chloride 10 ml 11/15/20 22:19 Sodium Chloride 0.9% 10 Ml Flush Syringe IV PRN PRN LINE FLUSH Nutrition/Malnutrition Assess - Dietary Evaluation Nutrition/Malnutrition Findings: Nutrition Notes Start: 11/16/20 10:14 Freq: Status: Active Protocol: Document 11/16/20 10:14 LP (Rec: 11/16/20 10:19 LP [id number]) Nutrition Notes Need for Assessment generated from: plush cutter Initial or Follow up Assessment Current Diagnosis COPD,Sepsis,Hypertension, Respiratory Failure,Stroke Other Pertinent Diagnosis Dementia, pneu Current Diet Cardiac Labs/Tests Reviewed Pertinent Medications D5NS at 125ml/hr Height 5 ft 5 in Weight 72 kg Leonard Body Weight (kg) 56.81 BMI 26.4 Weight Status Overweight Subjective/Other Information Screen for skin risk (12). No wounds noted. Pt with dementia . Burn Absent Trauma Absent GI Symptoms None Minimum of two criteria No physical signs of malnutrition #1 Nutrition Diagnosis Predicted suboptimal energy intake Etiology Advance age/dementia As Evidenced by Signs and Symptoms Unable to gather nutrition hx Is patient on ventilator? No Is Patient Ambulatory and/or Out of Bed No REE-([facility]-confined to bed) 1483.104 Calculation Used for Recommendations [facility] Additional Notes Protein needs are 72-86g (1-1. 2g/kg) Fluid needs are 1ml/kcal Nutrition Intervention Change Diet Order: Continue cardiac Add Supplement/Snack (indicate name/kcal Ensure Enlive BID /protein ) Provides kCal: 700 Provides Protein (gm) 40 Goal #1 Meet at least 80% of kcal and protein needs Anticipated Discharge Needs: Cardiac diet and ONS as needed Follow-Up By: 11/18/20 Additional Comments Follow for intakes and ONS tolerance
--- NOTE | 2020-11-18 13:15 | Event Note ---
Date: 11/18/20 Tried to see the patient multiple times, remains off the floor. Continue ceftriaxone, azithromycin for presumed pneumonia. Will follow up tomorrow.
--- NOTE | 2020-11-18 14:05 | Cat Scan Report ---
CT angio neck INDICATION / CLINICAL INFORMATION: 70 years Female; MAIN. TECHNIQUE: Thin cut axial images obtained through the head during IV bolus contrast administration. S agittal, coronal, and 3 plane MIP reconstructions performed by the technologist. NASCET type criteria used evaluate stenoses. All CT scans at this location are performed using CT dose reduction for ALAR A by means of automated exposure control. COMPARISON: The study is compared to the previous CTA of 01/26/2019. FINDINGS: CAROTID ARTERIES: The motion and beam hardening degrade the image quality, particularly involving pro ximal vessels given the overlying bony structures and disc venous contrast. However, there is mild at herosclerotic calcification involving carotid bifurcations without significant stenosis of the newsroom intern al carotid arteries by NASCET criteria bilaterally. VERTEBRAL ARTERIES: There is again suggestion of moderate narrowing of the origin of the left vertebr al artery which was reported on the prior study at. There is no significant developing narrowing of t he right vertebral artery. ARCH: There is atherosclerotic calcification involving aortic arch. However, there is no clear eviden ce of significant developing stenosis of the arch vessels. ADDITIONAL FINDINGS: Remainder of the surrounding soft tissues are grossly normal. IMPRESSION: There is mild calcification involving carotid bifurcations bilaterally without significant stenosis b y NASCET criteria. There is moderate narrowing of the origin of the left vertebral artery which was also noted on the re port to the previous CTA of 01/26/2019. Signer Name: Deangelo Chambers MD Signed: 11/18/2020 2:01 PM Workstation Name: [id number]
--- NOTE | 2020-11-18 14:19 | Cat Scan Report ---
CT angio head INDICATION / CLINICAL INFORMATION: 70 years Female; MAIN. TECHNIQUE: Thin cut axial images obtained through the head during IV bolus contrast administration. S agittal, coronal, and 3 plane MIP reconstructions performed by the technologist. NASCET type criteria used evaluate stenoses. Automated exposure control utilized for radiation reduction purposes. COMPARISON: The previous exam of 01/26/2019 is not currently available for direct comparison. FINDINGS: INTERNAL CAROTID ARTERIES: There is mild calcification involving distal internal carotid arteries wit hout significant focal stenosis by NASCET criteria. Similar findings were reported on the previous CT A VERTEBROBASILAR SYSTEM: There is no significant focal stenosis involving the vertebral basilar system . 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 CEREBRAL ARTERIES: There is no significant focal stenosis involving proximal arteries or visualized a djacent segments at. There is no clear CT evidence of large vessel occlusion. ANEURYSM: None identified. 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 The findings correlate with the earlier CT head of 11/16/2020. IMPRESSION: There is no CT evidence of large vessel occlusion involving intracranial vessels. Signer Name: Deangelo Chambers MD Signed: 11/18/2020 2:14 PM Workstation Name: [id number]
--- NOTE | 2020-11-18 15:11 | Magnetic Resonance Report ---
MR brain wo con INDICATION / CLINICAL INFORMATION: acute encephalopathy. TECHNIQUE: Multiplanar, multisequence MR images of the brain were obtained. COMPARISON: MRI brain January 28, 2019. CT head November 16, 2000 FINDINGS: INTRACRANIAL: No restricted diffusion. No hemorrhage. Ventricular caliber is normal. No extra-axial c ollection. No mass. No herniation. Major intracranial vascular flow voids are preserved. Severe conf luent periventricular, centrum semiovale, and central pepe T2 white matter hyperintensities most cons istent with sequela of chronic microvascular disease. Remote bilateral lacunar infarctions in the bas al ganglia, cerebellum, and centrum semiovale. There are scattered foci of hemosiderin deposition see n within the supratentorial and infratentorial parenchyma with a peripheral predilection. This is mos t likely related to hypertensive angiopathy given the other findings; however, amyloid angiopathy can have a similar appearance. ORBITS: No significant abnormality of visualized orbits. SINUSES / MASTOIDS: Persistent bilateral mastoid effusions. No significant abnormality is seen within the visualized portions of the nasopharynx. ADDITIONAL FINDINGS: None. IMPRESSION: 1. No acute abnormality. 2. Severe sequela of chronic microvascular disease similar to the prior exam. Signer Name: Torey Hughes MD Signed: 11/18/2020 3:06 PM Workstation Name: [id number]
[2020-11-18] MEDS: NYSTATIN 500,000 UNIT/5 ML ORAL LIQD PO SCH ×2 (18:03→22:02)
[2020-11-18] MEDS: VANCOMYCIN 1,250 MG in SODIUM CHLORIDE 0.9% 250ML 250 ML IV SCH (18:03)
[2020-11-19] MEDS: D5W/0.9% NACL 1,000 ML IV SCH (01:42)
[2020-11-19] MEDS: CEFEPIME/NS 2 GM/100 ML 2 GM/100 ML BAG IV SCH (05:27)
[2020-11-19 06:26] LABS: Hemoglobin 11.9 gm/dl (10.1-14.3); Mean Corpuscular HGB Conc 34 % (30-34); Mean Corpuscular Volume 91 fl (79-97); Platelet Count 192 K/mm3 (140-440); Red Blood Count 3.87 M/mm3 (3.65-5.03); Red Cell Distribution Width 13.8 % (13.2-15.2)
[2020-11-19] MEDS: hydrALAZINE 25 MG TAB PO SCH ×3 (06:55→21:16)
[2020-11-19 07:45] LABS: Blood Urea Nitrogen 5 mg/dL (7-17); Calcium 8.3 mg/dL (8.4-10.2); Hemolysis Index 6
[2020-11-19 07:50] LABS: BUN/Creatinine Ratio 10
[2020-11-19] MEDS ORDERED: D5W/0.9% NACL 1,000 ML with POTASSIUM CHLORIDE 20 MEQ IV SCH (08:49)
--- NOTE | 2020-11-19 08:54 | Progress Note ---
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 Patient is being treated for acute community-acquired pneumonia and work-up for altered mental status at this time. Assessment and plan --Dysphagia; failed swallow eval Speech therapist recommended PEG placement Family agreed, GI consulted for PEG placement --Severe hypokalemia; K2.8 40 mEq KCl IV, at 20 mL KCl IV fluids Check magnesium, follow electrolytes --Acute metabolic encephalopathy; Multifactorial, multiple strokes, multi-infarct dementia Hypoxia, pneumonia, respiratory failure IV fluids, supportive care CVA work-up negative Neuro work-up so far: CT head without contrast no acute abnormality MRI brain; no acute abnormality, chronic microvascular disease CTA head; no evidence of large vessel occlusion involving intracranial vessel CTA neck; mild calcification involving carotid bifurcations bilaterally without significant stenosis. 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 --Sepsis secondary to community-acquired pneumonia IV Rocephin and IV Zithromax Follow cultures, oxygen titrate O2 sats to more than 90% --Multi-infarct dementia CVA, old, cognitive deficits,Supportive care Repeat CT of the head without any abnormalities of acute CVA Neurology following --Hypertension Continue amlodipine IV hydralazine with parameters --Hyperlipidemia;Continue statins --DVT prophylaxis Hold heparin, for possible PEG tomorrow CODE STATUS: Full Speech and swallow evaluated the patient, failed swallow eval, recommend PEG placement GI consult for possible PEG tomorrow History Interval history: 11/16/2020: Patient seen and examined, patient is nonverbal, looking around the room, no distress. Spoke with the nurse today, patient is not taking any oral medication or eating. Patient febrile overnight. 11/16/2020: Patient seen this morning, continues to be nonverbal, no overnight events, patient afebrile. Covid is negative. Updated the family yesterday pertaining to the patient's condition. 11/17/2020: Patient seen this morning, continues to be aphasic, not responsive to verbal cues. But in no acute distress. Patient was febrile overnight 101 fever. Spoke with the family, they will come in and try to feed the patient since she is not taking in any p.o. intake, continues to be on fluids 11/19/2020; failed swallow evaluation, recommend PEG, GI consulted, patient n.p.o. status from midnight Hold antiplatelets, and anticoagulants History Interval history: I have seen and examined the patient at the bedside this morning Patient's chart and medications reviewed Patient family member at the bedside Speech therapist conducted swallow evaluation Abnormal, high risk for aspiration, recommend PEG placement Patient alert and awake, noncommunicative, cachectic Vital signs noted Hospitalist Physical - Constitutional Vitals: Temp Pulse Resp BP Pulse Ox 97.7 F 51 L 18 128/69 92 11/19/20 06:55 11/19/20 06:55 11/19/20 06:55 11/19/20 06:55 11/19/20 06:55 General appearance: Present: no acute distress, well-nourished, other (Cachectic) - EENT Eyes: Present: PERRL, EOM intact - Neck Neck: Present: supple, normal ROM - Respiratory Respiratory effort: normal Respiratory: bilateral: diminished, negative: rales, rhonchi, wheezing - Cardiovascular Rhythm: regular Heart Sounds: Present: S1 & S2 - Extremities Extremities: no ischemia, No edema - Abdominal General gastrointestinal: soft, non-tender, non-distended, normal bowel sounds - Integumentary Integumentary: Present: clear, warm - Psychiatric Psychiatric: appropriate mood/affect, cooperative HEART Score - HEART Score Troponin: Troponin T < 0.010 ng/mL (0.00-0.029) 11/15/20 Unknown Results - Labs CBC & Chem 7: 11/19/20 05:34 11/19/20 05:34 Labs: Laboratory Last Values WBC 7.2 K/mm3 (4.5-11.0) 11/19/20 05:34 RBC 3.87 M/mm3 (3.65-5.03) 11/19/20 05:34 Hgb 11.9 gm/dl (10.1-14.3) 11/19/20 05:34 Hct 35.0 % (30.3-42.9) 11/19/20 05:34 MCV 91 fl (79-97) 11/19/20 05:34 MCH 31 pg (28-32) 11/19/20 05:34 MCHC 34 % (30-34) 11/19/20 05:34 RDW 13.8 % (13.2-15.2) 11/19/20 05:34 Plt Count 192 K/mm3 (140-440) 11/19/20 05:34 Lymph % (Auto) 18.9 % (13.4-35.0) 11/17/20 05:11 [place] % (Auto) 9.1 % (0.0-7.3) H 11/17/20 05:11 Eos % (Auto) 0.2 % (0.0-4.3) 11/17/20 05:11 Baso % (Auto) 0.6 % (0.0-1.8) 11/17/20 05:11 Lymph # (Auto) 1.9 K/mm3 (1.2-5.4) 11/17/20 05:11 [place] # (Auto) 0.9 K/mm3 (0.0-0.8) H 11/17/20 05:11 Eos # (Auto) 0.0 K/mm3 (0.0-0.4) 11/17/20 05:11 Baso # (Auto) 0.1 K/mm3 (0.0-0.1) 11/17/20 05:11 Seg Neutrophils % 71.2 % (40.0-70.0) H 11/17/20 05:11 Seg Neutrophils # 7.2 K/mm3 (1.8-7.7) 11/17/20 05:11 APTT 31.1 Sec. (24.2-36.6) 11/15/20 17:55 D-Dimer 373.6 ng/mlDDU (0-234) H 11/15/20 Unknown Sodium 140 mmol/L (137-145) 11/19/20 05:34 Potassium 2.8 mmol/L (3.6-5.0) L* 11/19/20 05:34 Chloride 106.4 mmol/L (98-107) 11/19/20 05:34 Carbon Dioxide 27 mmol/L (22-30) 11/19/20 05:34 Anion Gap 9 mmol/L 11/19/20 05:34 BUN 5 mg/dL (7-17) L 11/19/20 05:34 Creatinine 0.5 mg/dL (0.6-1.2) L 11/19/20 05:34 Estimated GFR > 60 ml/min 11/19/20 05:34 BUN/Creatinine Ratio 10 % 11/19/20 05:34 Glucose 110 mg/dL (65-100) H 11/19/20 05:34 POC Glucose 115 mg/dL (70-105) H 11/16/20 21:04 Hemoglobin A1c 5.5 % (4-6) 11/16/20 06:38 Lactic Acid 0.70 mmol/L (0.7-2.0) 11/15/20 20:36 Calcium 8.3 mg/dL (8.4-10.2) L 11/19/20 05:34 Ferritin 382.5 ng/mL (10.0-200.0) H 11/15/20 Unknown Total Bilirubin 0.70 mg/dL (0.1-1.2) 11/16/20 06:38 AST 18 units/L (5-40) 11/16/20 06:38 ALT 14 units/L (7-56) 11/16/20 06:38 Alkaline Phosphatase 76 units/L (35-129) 11/16/20 06:38 Lactate Dehydrogenase 180 units/L (91-180) 11/15/20 Unknown Troponin T < 0.010 ng/mL (0.00-0.029) 11/15/20 Unknown C-Reactive Protein 0.00 mg/dL (0.00-1.30) 11/15/20 Unknown NT-Pro-B Natriuret Pep 106.8 pg/mL (0-900) 11/15/20 Unknown Total Protein 7.1 g/dL (6.3-8.2) 11/16/20 06:38 Albumin 3.7 g/dL (3.9-5) L 11/16/20 06:38 Albumin/Globulin Ratio 1.1 % 11/16/20 06:38 Procalcitonin < 0.05 ng/mL (<0.15) 11/15/20 Unknown Urine Color Yellow (Yellow) 11/16/20 Unknown Urine Turbidity Clear (Clear) 11/16/20 Unknown Urine pH 6.0 (5.0-7.0) 11/16/20 Unknown Ur Specific [place] 1.014 (1.003-1.030) 11/16/20 Unknown Urine Protein <15 mg/dl mg/dL (Negative) 11/16/20 Unknown Urine Glucose (UA) Neg mg/dL (Negative) 11/16/20 Unknown Urine Ketones Neg mg/dL (Negative) 11/16/20 Unknown Urine Blood Neg (Negative) 11/16/20 Unknown Urine Nitrite Neg (Negative) 11/16/20 Unknown Urine Bilirubin Neg (Negative) 11/16/20 Unknown Urine Urobilinogen < 2.0 mg/dL (<2.0) 11/16/20 Unknown Ur Leukocyte Esterase Neg (Negative) 11/16/20 Unknown Urine WBC (Auto) 1.0 /HPF (0.0-6.0) 11/16/20 Unknown Urine RBC (Auto) < 1.0 /HPF (0.0-6.0) 11/16/20 Unknown U Epithel Cells (Auto) 1.0 /HPF (0-13.0) 11/16/20 Unknown Urine Mucus Few /HPF 11/16/20 Unknown Coronavirus (PCR) Negative (Negative) 11/16/20 Unknown Microbiology: Microbiology 11/15/20 17:55 Peripheral/Venous Blood Culture - Preliminary NO GROWTH AFTER 72 HOURS 11/15/20 17:55 Peripheral/Venous Blood Culture - Preliminary 11/16/20 Unknown Urine,Clean Catch Urine Culture - Final NO GROWTH AFTER 48 HOURS [place]/IV: Voiding Method External Female Catheter Active Medications - Current Medications Current Medications: Generic Name Dose Route Start Last Admin Trade Name Freq PRN Reason Stop Dose Admin Acetaminophen 650 mg 11/15/20 22:19 Acetaminophen 325 Mg Tab PO Q4H PRN Pain MILD(1-3)/Fever >100.5/PABLO Acetaminophen 325 mg 11/16/20 10:30 11/17/20 17:09 Acetaminophen 325 Mg Rect Supp AL 325 mg Q6H PRN Administration Fever >101 Amlodipine Besylate 5 mg 11/16/20 10:00 11/18/20 10:35 Amlodipine 5 Mg Tab PO Not Given QDAY ELYSIA Aspirin 81 mg 11/16/20 10:00 11/18/20 10:35 Aspirin 81 Mg Tab Chew PO Not Given QDAY ELYSIA Atorvastatin Calcium 80 mg 11/16/20 10:00 11/18/20 10:35 Atorvastatin 40 Mg Tab PO Not Given DAILY [facility] Famotidine 20 mg 11/15/20 23:00 11/18/20 22:03 Famotidine 20 Mg/2 Ml Inj IV 20 mg BID ELYSIA Administration Hydralazine HCl 50 mg 11/15/20 23:00 11/19/20 06:55 Hydralazine 25 Mg Tab PO Not Given Q8HR ELYSIA Hydralazine HCl 10 mg 11/16/20 10:30 Hydralazine 20 Mg/1 Ml Inj IV Q4HR PRN Blood Pressure Vancomycin HCl 1,250 mg/ 275 mls @ 137.5 mls/hr 11/16/20 18:00 11/18/20 18:03 Sodium Chloride IV 137.5 mls/hr Q24H ELYSIA Administration Cefepime HCl 2 gm in 100 mls @ 200 mls/hr 11/16/20 06:00 11/19/20 05:27 Cefepime/Ns 2 Gm/100 Ml IV 200 mls/hr Q12H ELYSIA Administration Protocol Potassium Chloride 10 meq in 100 mls @ 100 mls/hr 11/19/20 09:00 Kcl 10meq/100ml IV 11/19/20 12:59 Q1H [facility] Potassium Chloride 20 meq/ 1,010 mls @ 125 mls/hr 11/19/20 08:49 Dextrose/Sodium Chloride IV DIRECT [facility] Metoclopramide HCl 10 mg 11/15/20 22:19 Metoclopramide 10 Mg/2 Ml Inj IV Q6H PRN Nausea And Vomiting Morphine Sulfate 2 mg 11/15/20 22:19 Morphine 2 Mg/1 Ml Inj IV Q4H PRN Pain, Moderate (4-6) Nystatin 500,000 unit 11/18/20 18:00 11/18/20 22:02 Nystatin 500,000 Unit/5 Ml Oral Liqd PO Not Given QID [facility] Ondansetron HCl 4 mg 11/15/20 22:19 Ondansetron 4 Mg/2 Ml Inj IV Q8H PRN Nausea And Vomiting Sodium Chloride 10 ml 11/16/20 10:00 11/18/20 22:05 Sodium Chloride 0.9% 10 Ml Flush Syringe IV 10 ml BID ELYSIA Administration Sodium Chloride 10 ml 11/15/20 22:19 Sodium Chloride 0.9% 10 Ml Flush Syringe IV PRN PRN LINE FLUSH Nutrition/Malnutrition Assess - Dietary Evaluation Nutrition/Malnutrition Findings: Nutrition Notes Start: 11/16/20 10:14 Freq: Status: Active Protocol: Document 11/18/20 13:02 AL (Rec: 11/18/20 13:19 AL [id number]) Co-Sign 11/18/20 13:02 LP Nutrition Notes Initial or Follow up Assessment Current Diagnosis COPD,Sepsis,Hypertension, Respiratory Failure,Stroke Other Pertinent Diagnosis Acute dysphagia, hyperlipidemia, Dementia, pneu , Current Diet NPO Labs/Tests K 3.4 BUN 5 Cr .5 Pertinent Medications D5NS at 125 ml/hr Height 5 ft 5 in Weight 66.2 kg [place] Body Weight (kg) 56.81 BMI 24.3 Weight change and time frame wt change noted Weight Status Appropriate Subjective/Other Information F/U for intakes and ONS tolerence. Pt at CT scan during time of visit. Per RN, pt failed speech eval and is NPO until further notice. Will F/U for diet advancement or TF consult. Percent of energy/protein needs met: 0%/0% Burn Absent Trauma Absent Difficulty In Swallowing Current % PO Negligible Minimum of two criteria No #2 Nutrition Diagnosis Inadequate oral intake Etiology dysphagia As Evidenced by Signs and Symptoms Pt is NPO #1 Nutrition Diagnosis Inadequate energy intake Comments: CHANGED Etiology Advanced age/dementia As Evidenced by Signs and Symptoms difficulty swallowing and pt currently NPO Diagnosis Progress(for reassessment Worsened documentation) Is patient on ventilator? No Is Patient Ambulatory and/or Out of Bed No REE-([facility]-confined to bed) [phone] Calculation Used for Recommendations [facility] Additional Notes Protein needs are 72-86g (1-1. 2g/kg) Fluid needs are 1ml/kcal Nutrition Intervention Change Diet Order: Recommend TF Nutrition Support: Recommend Jevity 1.2 at 50 ml/ hr Free water flush 80 mlq4h Kcal 1,440 Protein (gm) 67 Fluid (mL) 969 Add Supplement/Snack (indicate name/kcal d/c /protein ) Goal #1 Diet advancement or initiation of TF when medically feasible to meet needs Anticipated Discharge Needs: Unable to determine at this time. Follow-Up By: 11/20/20 Additional Comments F/U for diet advancement or TF consult.
[2020-11-19] MEDS: FAMOTIDINE 20 MG/2 ML INJ IV SCH ×2 (09:42→21:17)
[2020-11-19] MEDS: NYSTATIN 500,000 UNIT/5 ML ORAL LIQD PO SCH ×4 (09:42→21:16)
[2020-11-19] MEDS: amLODIPine 5 MG TAB PO SCH (09:43)
[2020-11-19] MEDS: POTASSIUM CHLORIDE 10 MEQ 10 MEQ/100 ML BAG IV SCH ×4 (09:43→15:24)
[2020-11-19] MEDS: ASPIRIN 81 MG TAB CHEW PO SCH (09:43)
--- NOTE | 2020-11-19 09:58 | Electrocardiograph Report ---
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
--- NOTE | 2020-11-19 11:46 | Progress Note ---
Assessment and Plan 70-year-old female with past medical history of hemorrhagic CVA with residual right-sided weakness, dementia, COPD on 2 L nasal cannula oxygen brought in by family for altered mental status since last night. Also patient has been having fever. Patient had a temperature 103.5. Patient with altered sensorium. Patient received first dose of Covid vaccination 3 weeks ago but is due for the second dose 1 week later. No one at home is having fever any infections. Patient has is none verbal and coughing and desaturating. No exacerbating or precipitating factors. The main problem is fever and desaturation and altered mental status. Chest x-ray in the ER revealed right-sided pneumonia which is developing. CT brain is unremarkable # Acute metabolic encephalopathy Secondary to respiratory failure hypoxia and pneumonia IV fluids and IV antibiotics Check head CT no speech out put ? comprehension -Seizure can not be excluded # CVA, old, cognitive deficits - she is with no clear speech out put ? comprehension -she is with right side weakness ? remote -Now she is with left facial droop - MRI brain is remarkable for multipleBG and cerebellar infarct she is with cerebellar infarct and possibly amyloid angiopathy. -Echo is pending -EEG is pending -CTA brain and neck showed mild atheroscerotic disease -ASA and lipitor for now, LDL#67,A1C#5.6 -property assessment monitor -SP and Pt evaluation - # Acute respiratory failure with hypoxia Patient is oxygen saturations are better on 4 L nasal cannula oxygen # Pneumonia IV ceftriaxone and IV azithromycin for now Also rule out Covid infection # Sepsis IV Rocephin and IV Zithromax Repeat chest x-ray in 48 to 72 hours # Hypertension Continue antihypertensives and adjust medications # Hyperlipidemia Continue statins LDL#67 # DVT prophylaxis On heparin and GI prophylaxis PLAN 1- Fidings are consistent with Multiinfarct dementia 2- she will benefit from peg tube feeding and Placement will sign off Subjective Date of service: 11/19/20 Principal diagnosis: weakness and lack of speech Interval history: status is unchanged she is with diffuse weakness and slight improvment in mentation no speech out put may be at time follow simple command she is evaluated for peg tube and possibly placement Objective - Vital Sign Vital Signs - 12hr 11/18/20 11/19/20 11/19/20 23:57 00:00 06:55 Temperature 97.7 F 97.7 F Pulse Rate 52 L 51 L Respiratory 16 18 18 Rate Blood Pressure 128/69 Blood Pressure 128/69 [Left] O2 Sat by Pulse 96 94 92 Oximetry - General Apperance Constitutional: other (alert no speech out put ) - EENT EENT: PERRL, mucous membranes moist - Respiratory Respiratory: chest non-tender, lungs clear, crackles - Cardiovascular Cardiovascular: regular rate, normal S1, normal S2 Extremities: no peripheral edema bilat, no clubbing, cyanosis - Gastrointestinal Gastrointestinal: normoactive bowel sounds - Laboratory Findings CBC and BMP: 11/19/20 05:34 11/19/20 05:34 Abnormal Lab Findings: Abnormal Labs 11/15/20 11/15/20 11/15/20 17:55 17:55 Unknown [place] % (Auto) [place] # (Auto) Seg Neutrophils % 74.4 H D-Dimer 373.6 H Sodium Potassium BUN Creatinine 0.5 L Glucose 102 H POC Glucose Calcium Ferritin Albumin 11/15/20 11/16/20 11/16/20 Unknown 06:38 06:38 [place] % (Auto) 7.4 H [place] # (Auto) Seg Neutrophils % 74.8 H D-Dimer Sodium Potassium BUN 6 L Creatinine 0.5 L Glucose 141 H POC Glucose Calcium Ferritin 382.5 H Albumin 3.7 L 11/16/20 11/17/20 11/17/20 21:04 05:11 05:11 [place] % (Auto) 9.1 H [place] # (Auto) 0.9 H Seg Neutrophils % 71.2 H D-Dimer Sodium 136 L Potassium BUN 6 L Creatinine 0.5 L Glucose 135 H POC Glucose 115 H Calcium Ferritin Albumin 11/18/20 11/19/20 04:38 05:34 [place] % (Auto) [place] # (Auto) Seg Neutrophils % D-Dimer Sodium Potassium 3.4 L 2.8 L* BUN 5 L 5 L Creatinine 0.5 L 0.5 L Glucose 124 H 110 H POC Glucose Calcium 8.3 L 8.3 L Ferritin Albumin
--- NOTE | 2020-11-19 14:59 | Consultation ---
History of Present Illness - Reason for Consult Consult date: 11/19/20 fever Requesting physician: DORY GOFF - History of Present Illness The patient is a 70-year-old female with prior CVA, residual right-sided weakness, dementia, COPD was admitted to the hospital on 11/15/2020 with fever and change in her mental status. Chest x-ray in the ER showed right-sided pneumonia. Her brain MRI showed no acute abnormality, showed severe chronic microvascular disease. Head and neck CTA did not reveal any acute occlusive disease, there was moderate narrowing of the origin of the left vertebral artery similar to prior exam. ID was consulted due to recurrent fever. Last fever was on 11/17/2020 at 5 PM. Review of Systems: Limited due to AMS Past History Past Medical History: hypertension, stroke Medications and Allergies Allergies Allergy/AdvReac Type Severity Reaction Status Date / Time No Known Allergies Allergy Verified 03/15/15 07:34 Home Medications Medication Instructions Recorded Confirmed Last Taken Type Aspirin [Aspirin BABY CHEW TAB] 81 mg PO QDAY #30 tab.chew 01/30/19 11/15/20 11/15/20 Rx amLODIPine 5 mg PO QDAY #30 tablet 01/30/19 11/15/20 11/15/20 Rx hydrALAZINE [Apresoline TAB] 50 mg PO Q8HR #90 tablet 01/30/19 11/15/20 11/15/20 Rx AtorvaSTATin [Lipitor] 80 mg PO DAILY 11/15/20 11/15/20 11/15/20 History Active Meds: Active Medications Acetaminophen (Acetaminophen 325 Mg Tab) 650 mg PO Q4H PRN PRN Reason: Pain MILD(1-3)/Fever >100.5/PABLO Acetaminophen (Acetaminophen 325 Mg Rect Supp) 325 mg NE Q6H PRN PRN Reason: Fever >101 Last Admin: 11/17/20 17:09 Dose: 325 mg Documented by: Amlodipine Besylate (Amlodipine 5 Mg Tab) 5 mg PO QDAY [facility] Last Admin: 11/19/20 09:43 Dose: Not Given Documented by: Aspirin (Aspirin 81 Mg Tab Chew) 81 mg PO QDAY [facility] Last Admin: 11/19/20 09:43 Dose: Not Given Documented by: Atorvastatin Calcium (Atorvastatin 40 Mg Tab) 80 mg PO DAILY [facility] Last Admin: 11/19/20 09:42 Dose: Not Given Documented by: Famotidine (Famotidine 20 Mg/2 Ml Inj) 20 mg IV BID [facility] Last Admin: 11/19/20 09:42 Dose: 20 mg Documented by: Hydralazine HCl (Hydralazine 25 Mg Tab) 50 mg PO Q8HR [facility] Last Admin: 11/19/20 06:55 Dose: Not Given Documented by: Hydralazine HCl (Hydralazine 20 Mg/1 Ml Inj) 10 mg IV Q4HR PRN PRN Reason: Blood Pressure Vancomycin HCl 1,250 mg/ (Sodium Chloride) 275 mls @ 137.5 mls/hr IV Q24H [facility] Last Admin: 11/18/20 18:03 Dose: 137.5 mls/hr Documented by: Cefepime HCl (Cefepime/Ns 2 Gm/100 Ml) 2 gm in 100 mls @ 200 mls/hr IV Q12H [facility]; Protocol Last Admin: 11/19/20 05:27 Dose: 200 mls/hr Documented by: Potassium Chloride/Dextrose/Sod Cl (D5w/Ns W/Kcl 20meq) 20 meq in 1,000 mls @ 125 mls/hr IV DIRECT [facility] Metoclopramide HCl (Metoclopramide 10 Mg/2 Ml Inj) 10 mg IV Q6H PRN PRN Reason: Nausea And Vomiting Morphine Sulfate (Morphine 2 Mg/1 Ml Inj) 2 mg IV Q4H PRN PRN Reason: Pain, Moderate (4-6) Nystatin (Nystatin 500,000 Unit/5 Ml Oral Liqd) 500,000 unit PO QID [facility] Last Admin: 11/19/20 09:42 Dose: Not Given Documented by: Ondansetron HCl (Ondansetron 4 Mg/2 Ml Inj) 4 mg IV Q8H PRN PRN Reason: Nausea And Vomiting Sodium Chloride (Sodium Chloride 0.9% 10 Ml Flush Syringe) 10 ml IV BID [facility] Last Admin: 11/19/20 09:42 Dose: 10 ml Documented by: Sodium Chloride (Sodium Chloride 0.9% 10 Ml Flush Syringe) 10 ml IV PRN PRN PRN Reason: LINE FLUSH Physical Examination - Physical Exam Narrative exam: Physical Exam: Constitutional: Awake, alert, tracks, nonverbal Head, Ears, Nose: Normocephalic, atraumatic. External ears, nose normal Eyes: Conjunctivae/corneas clear. No icterus. No ptosis. Neck: Supple, no meningeal signs Cardiovascular: S1, S2 normal. Respiratory: Good air entry, clear to auscultation bilaterally GI: Soft, non-tender; bowel sounds normal. No peritoneal signs Musculoskeletal: No pedal edema, no cyanosis. Skin: No rash or abscess Hem/Lymphatic: No palpable cervical or supraclavicular nodes. No lymphangitis Psych: no agitation Neurological: Awake, alert, tracks, nonverbal - Constitutional Vitals: Vital Signs Temp Pulse Resp BP Pulse Ox 99.1 F 66 18 143/82 93 11/19/20 14:04 11/19/20 14:04 11/19/20 14:04 11/19/20 14:04 11/19/20 14:04 Temperature -Last 24 Hours Temperature 99.1 F Temperature 97.7 F Temperature 97.7 F Temperature 97.6 F Results - Labs CBC & Chem 7: 11/19/20 05:34 11/19/20 05:34 Labs: Abnormal lab results 11/19/20 Range/Units 05:34 Potassium 2.8 L* (3.6-5.0) mmol/L BUN 5 L (7-17) mg/dL Creatinine 0.5 L (0.6-1.2) mg/dL Glucose 110 H (65-100) mg/dL Calcium 8.3 L (8.4-10.2) mg/dL - Imaging and Cardiology Chest x-ray: report reviewed, image reviewed (r pneumonia) Assessment and Plan Cultures: 11/15/2020 blood culture: 1 out of 4 bottles positive with growth of gram- positive rods 11/16/2020 urine culture: No growth A/P: 70-year-old female with prior CVA, residual right-sided weakness, dementia, COPD was admitted to the hospital on 11/15/2020 with fever and change in her mental status: #Fever: likely secondary to right-sided pneumonia. Improving. Complete antibiotic course. On room air. No leukocytosis. #Acute encephalopathy: Neurology on board. Imaging negative for acute abnormality in the brain. Seemingly improved. #GPR bacteremia: 1 out of 4 bottles positive, likely contaminant. Recs: -IV ceftriaxone 1 g daily plus IV azithromycin 500 mg for 1 more day. Orders placed. Arias Baltazar MD, FACP [facility], [place], [facility] O: [phone] F: [phone]
[2020-11-19] MEDS: cefTRIAXone/NS 1 GM/50 ML 1 GM/50 ML BAG IV SCH (15:27)
[2020-11-19] MEDS: AZITHROMYCIN/NS 500 MG/250 ML 500 MG/250 ML BAG IV SCH (15:27)
[2020-11-20] MEDS: D5NS W/KCL 20 MEQ 20 MEQ/1,000 ML BAG IV SCH ×2 (03:27→23:39)
[2020-11-20 05:49] LABS: INR 1.23 (0.87-1.13); Partial Thromboplastin Time 30.3 Sec. (24.2-36.6)
[2020-11-20 06:01] LABS: BUN/Creatinine Ratio 8; Blood Urea Nitrogen 4 mg/dL (7-17); Calcium 8.2 mg/dL (8.4-10.2); Hemolysis Index 24
--- NOTE | 2020-11-20 10:19 | Consultation ---
History of Present Illness - Reason for Consult Consult date: 11/20/20 Oropharyngeal dysphagia Requesting physician: MAYITO PALMER - History of Present Illness Ms. Heller is a 70-year-old woman with a history of right-sided CVA and mild dementia according to the patient's daughter, Jet Heller. Patient was found to have right-sided pneumonia and is being treated for antibiotics. She is unable to demonstrate safe swallowing. Prior to admission, daughter states patient was walking with a walker and able to converse. Currently, regards speaker. Shakes her head no to all questions, and does not seem to comprehend. Past History Past Medical History: COPD, hypertension, stroke Past Surgical History: No surgical history Social history: no significant social history Family history: no significant family history Medications and Allergies Allergies Allergy/AdvReac Type Severity Reaction Status Date / Time No Known Allergies Allergy Verified 03/15/15 07:34 Home Medications Medication Instructions Recorded Confirmed Last Taken Type Aspirin [Aspirin BABY CHEW TAB] 81 mg PO QDAY #30 tab.chew 01/30/19 11/15/20 11/15/20 Rx amLODIPine 5 mg PO QDAY #30 tablet 01/30/19 11/15/20 11/15/20 Rx hydrALAZINE [Apresoline TAB] 50 mg PO Q8HR #90 tablet 01/30/19 11/15/20 11/15/20 Rx AtorvaSTATin [Lipitor] 80 mg PO DAILY 11/15/20 11/15/20 11/15/20 History Active Meds: Active Medications Acetaminophen (Acetaminophen 325 Mg Tab) 650 mg PO Q4H PRN PRN Reason: Pain MILD(1-3)/Fever >100.5/PABLO Acetaminophen (Acetaminophen 325 Mg Rect Supp) 325 mg SC Q6H PRN PRN Reason: Fever >101 Last Admin: 11/17/20 17:09 Dose: 325 mg Documented by: Amlodipine Besylate (Amlodipine 5 Mg Tab) 5 mg PO QDAY [facility] Last Admin: 11/19/20 09:43 Dose: Not Given Documented by: Atorvastatin Calcium (Atorvastatin 40 Mg Tab) 80 mg PO DAILY [facility] Last Admin: 11/19/20 09:42 Dose: Not Given Documented by: Famotidine (Famotidine 20 Mg/2 Ml Inj) 20 mg IV BID [facility] Last Admin: 11/19/20 21:17 Dose: 20 mg Documented by: Hydralazine HCl (Hydralazine 25 Mg Tab) 50 mg PO Q8HR [facility] Last Admin: 11/19/20 21:16 Dose: Not Given Documented by: Hydralazine HCl (Hydralazine 20 Mg/1 Ml Inj) 10 mg IV Q4HR PRN PRN Reason: Blood Pressure Potassium Chloride/Dextrose/Sod Cl (D5w/Ns W/Kcl 20meq) 20 meq in 1,000 mls @ 125 mls/hr IV DIRECT [facility] Last Admin: 11/20/20 03:27 Dose: 125 mls/hr Documented by: Ceftriaxone Sodium (Rocephin/Ns 1 Gm/50 Ml) 1 gm in 50 mls @ 100 mls/hr IV Q24HR [facility]; Protocol Last Admin: 11/19/20 15:27 Dose: 100 mls/hr Documented by: Azithromycin (Zithromax/Ns) 500 mg in 250 mls @ 250 mls/hr IV Q24HR [facility] Last Admin: 11/19/20 15:27 Dose: 250 mls/hr Documented by: Metoclopramide HCl (Metoclopramide 10 Mg/2 Ml Inj) 10 mg IV Q6H PRN PRN Reason: Nausea And Vomiting Morphine Sulfate (Morphine 2 Mg/1 Ml Inj) 2 mg IV Q4H PRN PRN Reason: Pain, Moderate (4-6) Nystatin (Nystatin 500,000 Unit/5 Ml Oral Liqd) 500,000 unit PO QID [facility] Last Admin: 11/19/20 21:16 Dose: Not Given Documented by: Ondansetron HCl (Ondansetron 4 Mg/2 Ml Inj) 4 mg IV Q8H PRN PRN Reason: Nausea And Vomiting Sodium Chloride (Sodium Chloride 0.9% 10 Ml Flush Syringe) 10 ml IV BID [facility] Last Admin: 11/19/20 21:18 Dose: 10 ml Documented by: Sodium Chloride (Sodium Chloride 0.9% 10 Ml Flush Syringe) 10 ml IV PRN PRN PRN Reason: LINE FLUSH Review of Systems ROS unobtainable: due to mental status Exam - Constitutional Vitals: Temp Pulse Resp BP Pulse Ox 98.0 F 66 18 136/98 93 11/20/20 04:36 11/20/20 04:36 11/20/20 04:36 11/20/20 04:36 11/20/20 04:36 General appearance: Present: no acute distress - EENT Eyes: Present: PERRL, EOM intact ENT: hearing intact - Respiratory Respiratory effort: normal Respiratory: bilateral: CTA - Cardiovascular Rhythm: regular Heart Sounds: Present: S1 & S2 - Extremities Extremities: No edema Results - Labs CBC & Chem 7: 11/19/20 05:34 11/20/20 04:56 Labs: Abnormal lab results 11/19/20 11/20/20 11/20/20 Range/Units 19:48 04:56 04:56 PT 15.3 H (12.2-14.9) Sec. INR 1.23 H (0.87-1.13) Potassium 3.4 L D 3.4 L (3.6-5.0) mmol/L BUN 4 L (7-17) mg/dL Creatinine 0.5 L (0.6-1.2) mg/dL Glucose 104 H (65-100) mg/dL Calcium 8.2 L (8.4-10.2) mg/dL Magnesium 1.60 L (1.7-2.3) mg/dL Assessment and Plan 1. Unsafe swallowing/oropharyngeal dysphagia -may be a result of concurrent infection exacerbating underlying stroke deficits. This may resolve over time but this is unpredictable. Discussed with patient's 2 daughters. They wish to proceed with G-tube placement. - PEG placement on 11/22
[2020-11-20] MEDS: hydrALAZINE 25 MG TAB PO SCH ×3 (10:52→21:40)
[2020-11-20] MEDS: amLODIPine 5 MG TAB PO SCH (10:52)
[2020-11-20] MEDS: FAMOTIDINE 20 MG/2 ML INJ IV SCH ×2 (10:58→21:40)
[2020-11-20] MEDS: cefTRIAXone/NS 1 GM/50 ML 1 GM/50 ML BAG IV SCH (10:59)
[2020-11-20] MEDS: AZITHROMYCIN/NS 500 MG/250 ML 500 MG/250 ML BAG IV SCH (10:59)
[2020-11-20] MEDS: NYSTATIN 500,000 UNIT/5 ML ORAL LIQD PO SCH ×4 (10:59→21:49)
--- NOTE | 2020-11-20 11:58 | Progress Note ---
Assessment and Plan Assessment and plan: 70-year-old -[place] female with a past medical history as below who presented with acute encephalopathy and sudden aphasia. Patient is being treated for acute community-acquired pneumonia and work-up for altered mental status at this time. Dysphagia, failed swallow evaluation, recommended PEG placement, GI evaluated possible PEG placement on 11/22/2020. Meanwhile we will start Dobbhoff feeds today and tomorrow Assessment and plan --Dysphagia; failed swallow eval Speech therapist recommended PEG placement Family agreed, GI evaluated the patient Possible PEG placement on 11/22/2020 --Nutrition; Dobbhoff placement. Tube feeding per protocol N.p.o. from midnight of 11/22/2020 for possible PEG --Severe hypokalemia; K2.8 40 mEq KCl IV, at 20 mL KCl IV fluids Check magnesium, follow electrolytes --Acute metabolic encephalopathy; Multifactorial, multiple strokes, multi-infarct dementia Hypoxia, pneumonia, respiratory failure IV fluids, supportive care CVA work-up negative Neuro work-up so far: CT head without contrast no acute abnormality MRI brain; no acute abnormality, chronic microvascular disease CTA head; no evidence of large vessel occlusion involving intracranial vessel CTA neck; mild calcification involving carotid bifurcations bilaterally without significant stenosis. 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 --Sepsis secondary to community-acquired pneumonia IV Rocephin and IV Zithromax Follow cultures, oxygen titrate O2 sats to more than 90% --Multi-infarct dementia CVA, old, cognitive deficits,Supportive care Repeat CT of the head without any abnormalities of acute CVA Neurology following --Hypertension Continue amlodipine IV hydralazine with parameters --Hyperlipidemia;Continue statins --DVT prophylaxis Hold heparin, for possible PEG tomorrow CODE STATUS: Full Speech and swallow evaluated the patient, failed swallow eval, recommend PEG placement GI consult for possible PEG tomorrow 11/20/2020; GI evaluated the patient possible PEG placement on 11/22/2020 Dobbhoff placement, tube feeding per protocol, restrain the patient if needed History Interval history: I have seen and examined the patient at the bedside today Patient's chart and medications reviewed Patient is noncommunicative not in acute distress Vital signs noted Hospitalist Physical - Constitutional Vitals: Temp Pulse Resp BP Pulse Ox 98.0 F 66 18 136/98 93 11/20/20 04:36 11/20/20 04:36 11/20/20 04:36 11/20/20 04:36 11/20/20 04:36 General appearance: Present: no acute distress, well-nourished, other (Noncommunicative) - EENT Eyes: Present: PERRL, EOM intact - Neck Neck: Present: supple, normal ROM - Respiratory Respiratory effort: normal Respiratory: bilateral: diminished, negative: rales, rhonchi, wheezing - Cardiovascular Rhythm: regular Heart Sounds: Present: S1 & S2 - Extremities Extremities: no ischemia, No edema - Abdominal General gastrointestinal: soft, non-tender, non-distended, normal bowel sounds - Integumentary Integumentary: Present: clear, warm - Psychiatric Psychiatric: other (Noncommunicative/dementia) - Neurologic Neurologic: moves all extremities HEART Score - HEART Score Troponin: Troponin T < 0.010 ng/mL (0.00-0.029) 11/15/20 Unknown Results - Labs CBC & Chem 7: 11/19/20 05:34 11/20/20 04:56 Labs: Laboratory Last Values WBC 7.2 K/mm3 (4.5-11.0) 11/19/20 05:34 RBC 3.87 M/mm3 (3.65-5.03) 11/19/20 05:34 Hgb 11.9 gm/dl (10.1-14.3) 11/19/20 05:34 Hct 35.0 % (30.3-42.9) 11/19/20 05:34 MCV 91 fl (79-97) 11/19/20 05:34 MCH 31 pg (28-32) 11/19/20 05:34 MCHC 34 % (30-34) 11/19/20 05:34 RDW 13.8 % (13.2-15.2) 11/19/20 05:34 Plt Count 192 K/mm3 (140-440) 11/19/20 05:34 Lymph % (Auto) 18.9 % (13.4-35.0) 11/17/20 05:11 [place] % (Auto) 9.1 % (0.0-7.3) H 11/17/20 05:11 Eos % (Auto) 0.2 % (0.0-4.3) 11/17/20 05:11 Baso % (Auto) 0.6 % (0.0-1.8) 11/17/20 05:11 Lymph # (Auto) 1.9 K/mm3 (1.2-5.4) 11/17/20 05:11 [place] # (Auto) 0.9 K/mm3 (0.0-0.8) H 11/17/20 05:11 Eos # (Auto) 0.0 K/mm3 (0.0-0.4) 11/17/20 05:11 Baso # (Auto) 0.1 K/mm3 (0.0-0.1) 11/17/20 05:11 Seg Neutrophils % 71.2 % (40.0-70.0) H 11/17/20 05:11 Seg Neutrophils # 7.2 K/mm3 (1.8-7.7) 11/17/20 05:11 PT 15.3 Sec. (12.2-14.9) H 11/20/20 04:56 INR 1.23 (0.87-1.13) H 11/20/20 04:56 APTT 30.3 Sec. (24.2-36.6) 11/20/20 04:56 D-Dimer 373.6 ng/mlDDU (0-234) H 11/15/20 Unknown Sodium 141 mmol/L (137-145) 11/20/20 04:56 Potassium 3.4 mmol/L (3.6-5.0) L 11/20/20 04:56 Chloride 105.0 mmol/L (98-107) 11/20/20 04:56 Carbon Dioxide 27 mmol/L (22-30) 11/20/20 04:56 Anion Gap 12 mmol/L 11/20/20 04:56 BUN 4 mg/dL (7-17) L 11/20/20 04:56 Creatinine 0.5 mg/dL (0.6-1.2) L 11/20/20 04:56 Estimated GFR > 60 ml/min 11/20/20 04:56 BUN/Creatinine Ratio 8 % 11/20/20 04:56 Glucose 104 mg/dL (65-100) H 11/20/20 04:56 POC Glucose 115 mg/dL (70-105) H 11/16/20 21:04 Hemoglobin A1c 5.5 % (4-6) 11/16/20 06:38 Lactic Acid 0.70 mmol/L (0.7-2.0) 11/15/20 20:36 Calcium 8.2 mg/dL (8.4-10.2) L 11/20/20 04:56 Magnesium 1.70 mg/dL (1.7-2.3) 11/20/20 04:56 Ferritin 382.5 ng/mL (10.0-200.0) H 11/15/20 Unknown Total Bilirubin 0.70 mg/dL (0.1-1.2) 11/16/20 06:38 AST 18 units/L (5-40) 11/16/20 06:38 ALT 14 units/L (7-56) 11/16/20 06:38 Alkaline Phosphatase 76 units/L (35-129) 11/16/20 06:38 Lactate Dehydrogenase 180 units/L (91-180) 11/15/20 Unknown Troponin T < 0.010 ng/mL (0.00-0.029) 11/15/20 Unknown C-Reactive Protein 0.00 mg/dL (0.00-1.30) 11/15/20 Unknown NT-Pro-B Natriuret Pep 106.8 pg/mL (0-900) 11/15/20 Unknown Total Protein 7.1 g/dL (6.3-8.2) 11/16/20 06:38 Albumin 3.7 g/dL (3.9-5) L 11/16/20 06:38 Albumin/Globulin Ratio 1.1 % 11/16/20 06:38 Procalcitonin < 0.05 ng/mL (<0.15) 11/15/20 Unknown Urine Color Yellow (Yellow) 11/16/20 Unknown Urine Turbidity Clear (Clear) 11/16/20 Unknown Urine pH 6.0 (5.0-7.0) 11/16/20 Unknown Ur Specific [place] 1.014 (1.003-1.030) 11/16/20 Unknown Urine Protein <15 mg/dl mg/dL (Negative) 11/16/20 Unknown Urine Glucose (UA) Neg mg/dL (Negative) 11/16/20 Unknown Urine Ketones Neg mg/dL (Negative) 11/16/20 Unknown Urine Blood Neg (Negative) 11/16/20 Unknown Urine Nitrite Neg (Negative) 11/16/20 Unknown Urine Bilirubin Neg (Negative) 11/16/20 Unknown Urine Urobilinogen < 2.0 mg/dL (<2.0) 11/16/20 Unknown Ur Leukocyte Esterase Neg (Negative) 11/16/20 Unknown Urine WBC (Auto) 1.0 /HPF (0.0-6.0) 11/16/20 Unknown Urine RBC (Auto) < 1.0 /HPF (0.0-6.0) 11/16/20 Unknown U Epithel Cells (Auto) 1.0 /HPF (0-13.0) 11/16/20 Unknown Urine Mucus Few /HPF 11/16/20 Unknown Coronavirus (PCR) Negative (Negative) 11/16/20 Unknown Microbiology: Microbiology 11/15/20 17:55 Peripheral/Venous Blood Culture - Preliminary NO GROWTH AFTER 4 DAYS 11/15/20 17:55 Peripheral/Venous Blood Culture - Preliminary Diphtheroids Pat[place]/IV: Voiding Method External Female Catheter Active Medications - Current Medications Current Medications: Generic Name Dose Route Start Last Admin Trade Name Freq PRN Reason Stop Dose Admin Acetaminophen 650 mg 11/15/20 22:19 Acetaminophen 325 Mg Tab PO Q4H PRN Pain MILD(1-3)/Fever >100.5/PABLO Acetaminophen 325 mg 11/16/20 10:30 11/17/20 17:09 Acetaminophen 325 Mg Rect Supp SD 325 mg Q6H PRN Administration Fever >101 Amlodipine Besylate 5 mg 11/16/20 10:00 11/20/20 10:52 Amlodipine 5 Mg Tab PO Not Given QDAY [facility] Atorvastatin Calcium 80 mg 11/16/20 10:00 11/20/20 10:52 Atorvastatin 40 Mg Tab PO Not Given DAILY [facility] Famotidine 20 mg 11/15/20 23:00 11/20/20 10:58 Famotidine 20 Mg/2 Ml Inj IV 20 mg BID [facility] Administration Hydralazine HCl 50 mg 11/15/20 23:00 11/20/20 10:52 Hydralazine 25 Mg Tab PO Not Given Q8HR [facility] Hydralazine HCl 10 mg 11/16/20 10:30 Hydralazine 20 Mg/1 Ml Inj IV Q4HR PRN Blood Pressure Potassium Chloride/Dextrose/Sod Cl 20 meq in 1,000 mls @ 125 mls/hr 11/19/20 10:00 11/20/20 03:27 D5w/Ns W/Kcl 20meq IV 125 mls/hr DIRECT [facility] Administration Ceftriaxone Sodium 1 gm in 50 mls @ 100 mls/hr 11/19/20 15:00 11/20/20 10:59 Rocephin/Ns 1 Gm/50 Ml IV 100 mls/hr Q24HR [facility] Administration Protocol Azithromycin 500 mg in 250 mls @ 250 mls/hr 11/19/20 15:00 11/20/20 10:59 Zithromax/Ns IV 250 mls/hr Q24HR [facility] Administration Metoclopramide HCl 10 mg 11/15/20 22:19 Metoclopramide 10 Mg/2 Ml Inj IV Q6H PRN Nausea And Vomiting Morphine Sulfate 2 mg 11/15/20 22:19 Morphine 2 Mg/1 Ml Inj IV Q4H PRN Pain, Moderate (4-6) Nystatin 500,000 unit 11/18/20 18:00 11/20/20 10:59 Nystatin 500,000 Unit/5 Ml Oral Liqd PO Not Given QID [facility] Ondansetron HCl 4 mg 11/15/20 22:19 Ondansetron 4 Mg/2 Ml Inj IV Q8H PRN Nausea And Vomiting Sodium Chloride 10 ml 11/16/20 10:00 11/20/20 10:59 Sodium Chloride 0.9% 10 Ml Flush Syringe IV 10 ml BID [facility] Administration Sodium Chloride 10 ml 11/15/20 22:19 Sodium Chloride 0.9% 10 Ml Flush Syringe IV PRN PRN LINE FLUSH Nutrition/Malnutrition Assess - Dietary Evaluation Nutrition/Malnutrition Findings: Nutrition Notes Start: 11/16/20 10:14 Freq: Status: Active Protocol: Document 11/20/20 09:53 (Rec: 11/20/20 09:54 [email or web address]) Nutrition Notes Initial or Follow up Brief Note Current Diagnosis COPD,Sepsis,Hypertension, Respiratory Failure,Stroke Other Pertinent Diagnosis Acute dysphagia, hyperlipidemia, Dementia, pneu , Current Diet NPO Subjective/Other Information FU for diet advancement. Pt has GI consult and is waiting for PEG. Nutrition Intervention Change Diet Order: Recommend TF Nutrition Support: Recommend Jevity 1.2 at 50 ml/ hr Free water flush 80 mlq4h Kcal 1,440 Protein (gm) 67 Fluid (mL) 969 Goal #1 Diet advancement or initiation of TF when medically feasible to meet needs Follow-Up By: 11/22/20 Additional Comments F/U for TF consult.
[2020-11-20] MEDS ORDERED: SODIUM BICARBONATE 325 MG TAB FEEDTUBE PRN (12:01)
[2020-11-20] MEDS ORDERED: LIPASE 10,500/PROTEASE 25,000/AMYLASE 43,750 (UNITS) DR CAP FEEDTUBE PRN (12:01)
[2020-11-20] MEDS ORDERED: SIMPLE SYRUP 15 ML FEEDTUBE PRN ×2 (12:01)
--- NOTE | 2020-11-20 13:33 | Progress Note ---
Assessment and Plan Cultures: 11/15/2020 blood culture: 1 out of 4 bottles positive with growth of gram- positive rods: Diptheroids 11/16/2020 urine culture: No growth A/P: 70-year-old female with prior CVA, residual right-sided weakness, dementia, COPD was admitted to the hospital on 11/15/2020 with fever and change in her mental status: #Fever: likely secondary to right-sided pneumonia. Improving. Complete antibiotic course. On room air. No leukocytosis. #Acute encephalopathy: Neurology on board. Imaging negative for acute abnormality in the brain. Seemingly improved. #GPR bacteremia: 1 out of 4 bottles positive for diptheroids, likely contaminant. Recs: -stop abx after today -noted plans for hospice ID will sign off. Please call with questions. Arias Baltazar MD, FACP [facility] O: [phone] F: [phone] Subjective Date of service: 11/20/20 Principal diagnosis: weakness and lack of speech Interval history: No fever. Non verbal. Awake. Objective - Exam Narrative Exam: Physical Exam: Constitutional: Awake, alert, tracks, nonverbal Head, Ears, Nose: Normocephalic, atraumatic. External ears, nose normal Eyes: Conjunctivae/corneas clear. No icterus. No ptosis. Neck: Supple, no meningeal signs Cardiovascular: S1, S2 normal. Respiratory: Good air entry, clear to auscultation bilaterally GI: Soft, non-tender; bowel sounds normal. No peritoneal signs Musculoskeletal: No pedal edema, no cyanosis. Skin: No rash or abscess Hem/Lymphatic: No palpable cervical or supraclavicular nodes. No lymphangitis Psych: no agitation Neurological: Awake, alert, tracks, nonverbal - Constitutional Vitals: Vital Signs Temp Pulse Resp BP Pulse Ox 99.1 F 58 L 18 168/83 97 11/20/20 11:21 11/20/20 11:21 11/20/20 11:21 11/20/20 11:11/20/20 11:21 Temperature -Last 24 Hours Temperature 99.1 F Temperature 98.0 F Temperature 99.1 F Temperature 97.4 F Temperature 99.8 F Temperature 99.1 F Temperature 98.0 F Temperature 99.8 F - Labs CBC & Chem 7: 11/19/20 05:34 11/20/20 04:56 Labs: Abnormal lab results 11/19/20 11/20/20 11/20/20 Range/Units 19:48 04:56 04:56 PT 15.3 H (12.2-14.9) Sec. INR 1.23 H (0.87-1.13) Potassium 3.4 L D 3.4 L (3.6-5.0) mmol/L BUN 4 L (7-17) mg/dL Creatinine 0.5 L (0.6-1.2) mg/dL Glucose 104 H (65-100) mg/dL Calcium 8.2 L (8.4-10.2) mg/dL Magnesium 1.60 L (1.7-2.3) mg/dL
--- NOTE | 2020-11-20 17:41 | XRay Report ---
XR abdomen 1V ap INDICATION: tube placement. COMPARISON: None available. FINDINGS: The tip of the feeding tube projects over the distal stomach. Signer Name: Wilbur Calixto MD Signed: 11/20/2020 5:36 PM Workstation Name: [id number]
[2020-11-21] MEDS: hydrALAZINE 25 MG TAB PO SCH ×3 (05:28→22:04)
--- NOTE | 2020-11-21 07:59 | Progress Note ---
Assessment and Plan Assessment and plan: 70-year-old -[place] female with a past medical history as below who presented with acute encephalopathy and sudden aphasia. Patient is being treated for acute community-acquired pneumonia and work-up for altered mental status at this time. Dysphagia, failed swallow evaluation, recommended PEG placement, GI evaluated possible PEG placement on 11/22/2020. Patient is receiving Dobbhoff feeds, placed n.p.o. from midnight, possible PEG placement tomorrow. Family agreed for the procedure. Assessment and plan --Dysphagia; failed swallow eval Speech therapist recommended PEG placement Family agreed, GI evaluated the patient Possible PEG placement tomorrow on 11/22/2020 Continue Dobbhoff feeds, n.p.o. after midnight --Nutrition; Dobbhoff placement. Tube feeding per protocol N.p.o. from midnight of 11/22/2020 for possible PEG --Severe hypokalemia; K2.8 40 mEq KCl IV, at 20 mL KCl IV fluids Check magnesium, follow electrolytes --Acute metabolic encephalopathy; Multifactorial, multiple strokes, multi-infarct dementia Hypoxia, pneumonia, respiratory failure IV fluids, supportive care CVA work-up negative Neuro work-up so far: CT head without contrast no acute abnormality MRI brain; no acute abnormality, chronic microvascular disease CTA head; no evidence of large vessel occlusion involving intracranial vessel CTA neck; mild calcification involving carotid bifurcations bilaterally without significant stenosis. 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 which was also present in 2019 --Acute respiratory failure with hypoxia Patient is requiring 3 L nasal cannula oxygen Titrate O2 sats to more than 90% --Pneumonia, community-acquired IV ceftriaxone and IV azithromycin , follow cultures for now Covid 19 test negative --Sepsis secondary to community-acquired pneumonia IV Rocephin and IV Zithromax Follow cultures, oxygen titrate O2 sats to more than 90% --Multi-infarct dementia CVA, old, cognitive deficits,Supportive care Repeat CT of the head without any abnormalities of acute CVA Neurology following --Hypertension Continue amlodipine IV hydralazine with parameters --Hyperlipidemia;Continue statins --DVT prophylaxis Hold heparin, for possible PEG tomorrow CODE STATUS: Full Speech and swallow evaluated the patient, failed swallow eval, recommend PEG placement GI consult for possible PEG tomorrow 11/20/2020; GI evaluated the patient possible PEG placement on 11/22/2020 Dobbhoff placement, tube feeding per protocol, restrain the patient if needed 11/21/2020; patient is receiving Dobbhoff feeds, placed n.p.o. from midnight For possible PEG placement tomorrow followed by hospice Discussed with patient's daughter in detail, agree with the PEG placement History Interval history: I have seen and examined the patient at the bedside this morning Patient's chart and medications reviewed, patient is more alert and awake nonverbal Receiving Dobbhoff feeds No new events reported by nursing Family has ultimately agreed for PEG placement tomorrow We will place n.p.o. from midnight in preparation for the procedure Vital signs noted Hospitalist Physical - Constitutional Vitals: Temp Pulse Resp BP Pulse Ox 98.1 F 72 16 151/87 98 11/21/20 04:26 11/21/20 04:26 11/21/20 04:26 11/21/20 05:28 11/21/20 04:26 General appearance: Present: no acute distress, well-nourished, other (Noncommunicative) - EENT Eyes: Present: PERRL, EOM intact - Neck Neck: Present: supple, normal ROM - Respiratory Respiratory effort: normal, labored Respiratory: bilateral: diminished, rhonchi, negative: rales, wheezing - Cardiovascular Rhythm: regular Heart Sounds: Present: S1 & S2 - Extremities Extremities: no ischemia, No edema - Abdominal General gastrointestinal: soft, non-tender, non-distended, normal bowel sounds - Integumentary Integumentary: Present: clear, warm - Psychiatric Psychiatric: appropriate mood/affect, cooperative - Neurologic Neurologic: CNII-XII intact, moves all extremities HEART Score - HEART Score Troponin: Troponin T < 0.010 ng/mL (0.00-0.029) 11/15/20 Unknown Results - Labs CBC & Chem 7: 11/19/20 05:34 11/21/20 08:25 Labs: Laboratory Last Values WBC 7.2 K/mm3 (4.5-11.0) 11/19/20 05:34 RBC 3.87 M/mm3 (3.65-5.03) 11/19/20 05:34 Hgb 11.9 gm/dl (10.1-14.3) 11/19/20 05:34 Hct 35.0 % (30.3-42.9) 11/19/20 05:34 MCV 91 fl (79-97) 11/19/20 05:34 MCH 31 pg (28-32) 11/19/20 05:34 MCHC 34 % (30-34) 11/19/20 05:34 RDW 13.8 % (13.2-15.2) 11/19/20 05:34 Plt Count 192 K/mm3 (140-440) 11/19/20 05:34 Lymph % (Auto) 18.9 % (13.4-35.0) 11/17/20 05:11 [place] % (Auto) 9.1 % (0.0-7.3) H 11/17/20 05:11 Eos % (Auto) 0.2 % (0.0-4.3) 11/17/20 05:11 Baso % (Auto) 0.6 % (0.0-1.8) 11/17/20 05:11 Lymph # (Auto) 1.9 K/mm3 (1.2-5.4) 11/17/20 05:11 [place] # (Auto) 0.9 K/mm3 (0.0-0.8) H 11/17/20 05:11 Eos # (Auto) 0.0 K/mm3 (0.0-0.4) 11/17/20 05:11 Baso # (Auto) 0.1 K/mm3 (0.0-0.1) 11/17/20 05:11 Seg Neutrophils % 71.2 % (40.0-70.0) H 11/17/20 05:11 Seg Neutrophils # 7.2 K/mm3 (1.8-7.7) 11/17/20 05:11 PT 15.3 Sec. (12.2-14.9) H 11/20/20 04:56 INR 1.23 (0.87-1.13) H 11/20/20 04:56 APTT 30.3 Sec. (24.2-36.6) 11/20/20 04:56 D-Dimer 373.6 ng/mlDDU (0-234) H 11/15/20 Unknown Sodium 141 mmol/L (137-145) 11/20/20 04:56 Potassium 3.4 mmol/L (3.6-5.0) L 11/20/20 04:56 Chloride 105.0 mmol/L (98-107) 11/20/20 04:56 Carbon Dioxide 27 mmol/L (22-30) 11/20/20 04:56 Anion Gap 12 mmol/L 11/20/20 04:56 BUN 4 mg/dL (7-17) L 11/20/20 04:56 Creatinine 0.5 mg/dL (0.6-1.2) L 11/20/20 04:56 Estimated GFR > 60 ml/min 11/20/20 04:56 BUN/Creatinine Ratio 8 % 11/20/20 04:56 Glucose 104 mg/dL (65-100) H 11/20/20 04:56 POC Glucose 115 mg/dL (70-105) H 11/16/20 21:04 Hemoglobin A1c 5.5 % (4-6) 11/16/20 06:38 Lactic Acid 0.70 mmol/L (0.7-2.0) 11/15/20 20:36 Calcium 8.2 mg/dL (8.4-10.2) L 11/20/20 04:56 Magnesium 1.70 mg/dL (1.7-2.3) 11/20/20 04:56 Ferritin 382.5 ng/mL (10.0-200.0) H 11/15/20 Unknown Total Bilirubin 0.70 mg/dL (0.1-1.2) 11/16/20 06:38 AST 18 units/L (5-40) 11/16/20 06:38 ALT 14 units/L (7-56) 11/16/20 06:38 Alkaline Phosphatase 76 units/L (35-129) 11/16/20 06:38 Lactate Dehydrogenase 180 units/L (91-180) 11/15/20 Unknown Troponin T < 0.010 ng/mL (0.00-0.029) 11/15/20 Unknown C-Reactive Protein 0.00 mg/dL (0.00-1.30) 11/15/20 Unknown NT-Pro-B Natriuret Pep 106.8 pg/mL (0-900) 11/15/20 Unknown Total Protein 7.1 g/dL (6.3-8.2) 11/16/20 06:38 Albumin 3.7 g/dL (3.9-5) L 11/16/20 06:38 Albumin/Globulin Ratio 1.1 % 11/16/20 06:38 Procalcitonin < 0.05 ng/mL (<0.15) 11/15/20 Unknown Urine Color Yellow (Yellow) 11/16/20 Unknown Urine Turbidity Clear (Clear) 11/16/20 Unknown Urine pH 6.0 (5.0-7.0) 11/16/20 Unknown Ur Specific [place] 1.014 (1.003-1.030) 11/16/20 Unknown Urine Protein <15 mg/dl mg/dL (Negative) 11/16/20 Unknown Urine Glucose (UA) Neg mg/dL (Negative) 11/16/20 Unknown Urine Ketones Neg mg/dL (Negative) 11/16/20 Unknown Urine Blood Neg (Negative) 11/16/20 Unknown Urine Nitrite Neg (Negative) 11/16/20 Unknown Urine Bilirubin Neg (Negative) 11/16/20 Unknown Urine Urobilinogen < 2.0 mg/dL (<2.0) 11/16/20 Unknown Ur Leukocyte Esterase Neg (Negative) 11/16/20 Unknown Urine WBC (Auto) 1.0 /HPF (0.0-6.0) 11/16/20 Unknown Urine RBC (Auto) < 1.0 /HPF (0.0-6.0) 11/16/20 Unknown U Epithel Cells (Auto) 1.0 /HPF (0-13.0) 11/16/20 Unknown Urine Mucus Few /HPF 11/16/20 Unknown Coronavirus (PCR) Negative (Negative) 11/16/20 Unknown Microbiology: Microbiology 11/15/20 17:55 Peripheral/Venous Blood Culture - Final NO GROWTH AFTER 5 DAYS [place]/IV: Voiding Method External Female Catheter Active Medications - Current Medications Current Medications: Generic Name Dose Route Start Last Admin Trade Name Freq PRN Reason Stop Dose Admin Acetaminophen 650 mg 11/15/20 22:19 Acetaminophen 325 Mg Tab PO Q4H PRN Pain MILD(1-3)/Fever >100.5/PABLO Acetaminophen 325 mg 11/16/20 10:30 11/17/20 17:09 Acetaminophen 325 Mg Rect Supp GA 325 mg Q6H PRN Administration Fever >101 Amlodipine Besylate 5 mg 11/16/20 10:00 11/20/20 10:52 Amlodipine 5 Mg Tab PO Not Given QDAY ELYSIA Lipase/Protease/Amylase 1 each 11/20/20 12:01 Lipase 10,500/Protease 25,000/Amylase 43,750 (Units) Dr Casey DOS SANTOSTUBE PRN PRN For Clogged Feeding Tube Atorvastatin Calcium 80 mg 11/16/20 10:00 11/20/20 10:52 Atorvastatin 40 Mg Tab PO Not Given DAILY ELYSIA Famotidine 20 mg 11/15/20 23:00 11/20/20 21:40 Famotidine 20 Mg/2 Ml Inj IV 20 mg BID ELYSIA Administration Hydralazine HCl 50 mg 11/15/20 23:00 11/21/20 05:28 Hydralazine 25 Mg Tab PO 50 mg Q8HR ELYSIA Administration Hydralazine HCl 10 mg 11/16/20 10:30 Hydralazine 20 Mg/1 Ml Inj IV Q4HR PRN Blood Pressure Potassium Chloride/Dextrose/Sod Cl 20 meq in 1,000 mls @ 125 mls/hr 11/19/20 10:00 11/20/20 23:39 D5w/Ns W/Kcl 20meq IV 125 mls/hr DIRECT ELYSIA Administration Ceftriaxone Sodium 1 gm in 50 mls @ 100 mls/hr 11/19/20 15:00 11/20/20 10:59 Rocephin/Ns 1 Gm/50 Ml IV 100 mls/hr Q24HR ELYSIA Administration Protocol Azithromycin 500 mg in 250 mls @ 250 mls/hr 11/19/20 15:00 11/20/20 10:59 Zithromax/Ns IV 250 mls/hr Q24HR ELYSIA Administration Metoclopramide HCl 10 mg 11/15/20 22:19 Metoclopramide 10 Mg/2 Ml Inj IV Q6H PRN Nausea And Vomiting Morphine Sulfate 2 mg 11/15/20 22:19 Morphine 2 Mg/1 Ml Inj IV Q4H PRN Pain, Moderate (4-6) Nystatin 500,000 unit 11/18/20 18:00 11/20/20 21:49 Nystatin 500,000 Unit/5 Ml Oral Liqd PO Not Given QID ELYSIA Ondansetron HCl 4 mg 11/15/20 22:19 Ondansetron 4 Mg/2 Ml Inj IV Q8H PRN Nausea And Vomiting Simple Syrup 15 ml 11/20/20 12:01 Simple Syrup 15 Ml FEEDTUBE PRN PRN Hypoglycemia Simple Syrup 30 ml 11/20/20 12:01 Simple Syrup 15 Ml FEEDTUBE PRN PRN Hypoglycemia Sodium Bicarbonate 325 mg 11/20/20 12:01 Sodium Bicarbonate 325 Mg Tab FEEDTUBE PRN PRN For Clogged Feeding Tube Sodium Chloride 10 ml 11/16/20 10:00 11/20/20 21:40 Sodium Chloride 0.9% 10 Ml Flush Syringe IV 10 ml BID ELYSIA Administration Sodium Chloride 10 ml 11/15/20 22:19 Sodium Chloride 0.9% 10 Ml Flush Syringe IV PRN PRN LINE FLUSH Nutrition/Malnutrition Assess - Dietary Evaluation Nutrition/Malnutrition Findings: Nutrition Notes Start: 11/16/20 10:14 Freq: Status: Active Protocol: Document 11/20/20 09:53 (Rec: 11/20/20 09:54 [id number]) Nutrition Notes Need for Assessment generated from: MD Order Initial or Follow up Reassessment Current Diagnosis COPD,Sepsis,Hypertension, Respiratory Failure,Stroke Other Pertinent Diagnosis Acute dysphagia, hyperlipidemia, Dementia, pneu , Current Diet NPO Labs/Tests K 3.4 Pertinent Medications D5NS w 20mEq Kcl at 125 ml/hr Height 5 ft 5 in Weight 66.2 kg [place] Body Weight (kg) 56.81 BMI 24.3 Weight Status Appropriate Subjective/Other Information MD order for TF. Pt will get PEG on 11/22. Percent of energy/protein needs met: 0%/0% Burn Absent Trauma Absent Difficulty In Swallowing Current % PO Negligible Minimum of two criteria No #2 Nutrition Diagnosis Inadequate oral intake Diagnosis Progress(for reassessment Continues documentation) #1 Nutrition Diagnosis Inadequate energy intake Diagnosis Progress(for reassessment Continues documentation) Is patient on ventilator? No Is Patient Ambulatory and/or Out of Bed No REE-([facility]-confined to bed) 2373.566 Calculation Used for Recommendations [facility] Additional Notes Protein needs are 72-86g (1-1. 2g/kg) Fluid needs are 1ml/kcal Nutrition Intervention Change Diet Order: Recommend TF Nutrition Support: Recommend Jevity 1.2 at 50 ml/ hr Free water flush 80 mlq4h Kcal 1,440 Protein (gm) 67 Fluid (mL) 969 Goal #1 Meet at least 75% of protein and energy needs via TF Anticipated Discharge Needs: Unable to determine at this time. Follow-Up By: 11/22/20 Additional Comments FU for TF start and tolerance
--- NOTE | 2020-11-21 10:08 | Electrocardiograph Report ---
[facility] Test Date: 2020-11-21 Test Time: 02:24:59 Pat Name: MONICA BERNAL Department: Room: A353 1 Gender: F Color Dipper: [id number] : [id number] Requested By: MAYITO PALMER Order Number: [id number] Reading MD: Naila Perkins Measurements Intervals [place] Rate: 83 P: -15 DC: 157 QRS: -30 QRSD: 79 T: 16 QT: 403 QTc: 474 Interpretive Statements Sinus rhythm Inferior infarct, old Possible old anterior infarct Compared to ECG 11/15/2020 19:29:01 No significant change Electronically Signed On 11-21-2020 10:08:14 EDT by Naila Perkins
[2020-11-21] MEDS: FAMOTIDINE 20 MG/2 ML INJ IV SCH ×2 (10:45→22:04)
[2020-11-21] MEDS: NYSTATIN 500,000 UNIT/5 ML ORAL LIQD PO SCH ×4 (10:46→22:04)
[2020-11-21] MEDS: amLODIPine 5 MG TAB PO SCH (10:46)
--- NOTE | 2020-11-21 11:58 | Progress Note ---
Assessment and Plan Cultures: 11/15/2020 blood culture: 1 out of 4 bottles positive with growth of gram- positive rods: Diptheroids 11/16/2020 urine culture: No growth A/P: 70-year-old female with prior CVA, residual right-sided weakness, dementia, COPD was admitted to the hospital on 11/15/2020 with fever and change in her mental status: #Fever: likely secondary to right-sided pneumonia. Resolved. Completed antibiotic course. No leukocytosis. #Acute encephalopathy: Neurology on board. Imaging negative for acute abnormality in the brain. Seemingly improved. #GPR bacteremia: 1 out of 4 bottles positive for diptheroids, likely contaminant . Recs: -completed antibiotics, doing well ID will sign off. Please call with questions. Arias Baltazar MD, FACP [facility] ([facility] O: [phone] F: [phone] Subjective Date of service: 11/21/20 Principal diagnosis: weakness and lack of speech Interval history: Afebrile. Sitting at the edge of the bed. Working with PT, but confused at baseline. Objective - Exam Narrative Exam: Physical Exam: Constitutional: Awake, alert, tracks, nonverbal Head, Ears, Nose: Normocephalic, atraumatic. External ears, nose normal Eyes: Conjunctivae/corneas clear. No icterus. No ptosis. Neck: Supple, no meningeal signs Cardiovascular: S1, S2 normal. Respiratory: Good air entry, clear to auscultation bilaterally GI: Soft, non-tender; bowel sounds normal. No peritoneal signs Musculoskeletal: No pedal edema, no cyanosis. Skin: No rash or abscess Hem/Lymphatic: No palpable cervical or supraclavicular nodes. No lymphangitis Psych: no agitation Neurological: Awake, alert, confused at baseline - Constitutional Vitals: Vital Signs Temp Pulse Resp BP Pulse Ox 98.1 F 72 16 151/87 98 11/21/20 04:26 11/21/20 04:26 11/21/20 04:26 11/21/20 05:28 11/21/20 04:26 Temperature -Last 24 Hours Temperature 98.1 F Temperature 98.9 F Temperature 98.1 F - Labs CBC & Chem 7: 11/19/20 05:34 11/21/20 08:25 Labs: Abnormal lab results 11/21/20 Range/Units 08:25 Potassium 3.5 L (3.6-5.0) mmol/L
[2020-11-21] MEDS: POTASSIUM CHLORIDE 10 MEQ 10 MEQ/100 ML BAG IV SCH ×3 (13:43→17:30)
--- NOTE | 2020-11-21 16:18 | Event Note ---
Date: 11/21/20 I called patient's daughter and discussed in detail patient's condition, failed swallow evaluation, GI consultation, and plans for PEG placement tomorrow She had few questions and concerns, addressed all of them, initially the daughter was planning to postpone PEG procedure to next week to either Wednesday or Wednesday, however later decided to go ahead with PEG tomorrow 11/22/2020, Patient will be placed n.p.o. from midnight, PEG procedure tomorrow, confirmed with GI.. Plan of care reviewed with the patient's nurse, patient and family and rylan lazaro
[2020-11-21] MEDS: D5NS W/KCL 20 MEQ 20 MEQ/1,000 ML BAG IV SCH (22:09)
[2020-11-22 00:54] LABS: Alanine Aminotransferase 10 units/L (7-56); Albumin 3.1 g/dL (3.9-5); Blood Urea Nitrogen 5 mg/dL (7-17); Calcium 8.7 mg/dL (8.4-10.2); Hemolysis Index 3
[2020-11-22 00:58] LABS: Basophils # (Auto) 0.1 K/mm3 (0.0-0.1); Basophils % (Auto) 0.7 % (0.0-1.8); Eosinophils # (Auto) 0.6 K/mm3 (0.0-0.4); Eosinophils % (Auto) 7.3 % (0.0-4.3); Hemoglobin 12.3 gm/dl (10.1-14.3); Lymphocytes # (Auto) 2.1 K/mm3 (1.2-5.4); Lymphocytes % (Auto) 24.6 % (13.4-35.0); Mean Corpuscular HGB Conc 34 % (30-34); Mean Corpuscular Volume 89 fl (79-97); Monocytes # (Auto) 0.7 K/mm3 (0.0-0.8); Monocytes % (Auto) 8.7 % (0.0-7.3); Platelet Count 223 K/mm3 (140-440); Red Blood Count 4.04 M/mm3 (3.65-5.03); Red Cell Distribution Width 14.2 % (13.2-15.2)
[2020-11-22 00:59] LABS: BUN/Creatinine Ratio 10
[2020-11-22] MEDS: hydrALAZINE 25 MG TAB PO SCH ×3 (05:30→22:00)
[2020-11-22] MEDS: D5NS W/KCL 20 MEQ 20 MEQ/1,000 ML BAG IV SCH ×2 (07:50→18:20)
--- NOTE | 2020-11-22 10:01 | Anesthesia Consultation ---
Anesthesia Consult and Med Hx Date of service: 11/22/20 - Airway Intubation Access Assessment: Possibly Difficult - Pre-Operative Health Status ASA Pre-Surgery Classification: ASA3 Proposed Anesthetic Plan: MAC - Pulmonary Hx Respiratory Symptoms: Yes (intermittently on NC this admission, COVID neg) Hx Pneumonia: Yes (completed treatment for community acquired PNA this admissio n) - Cardiovascular System Hx Hypertension: Yes - Central Nervous System CVA: Yes (encephalopathy) - Gastrointestinal Hx Gastroesophageal Reflux Disease: No (dysphagia) - Endocrine Hx Renal Disease: No Hx Liver Disease: No Hx Insulin Dependent Diabetes: No Hx Non-Insulin Dependent Diabetes: No Hx Thyroid Disease: No - Other Systems Hx Obesity: No - Additional Comments Anesthesia Medical History Comments: Consent obtained from daughter Marco A Hui.
[2020-11-22] MEDS: amLODIPine 5 MG TAB PO SCH (10:09)
--- NOTE | 2020-11-22 10:21 | Progress Note ---
Assessment and Plan Assessment and plan: 70-year-old -[place] female with a past medical history as below who presented with acute encephalopathy and sudden aphasia. Patient is being treated for acute community-acquired pneumonia and work-up for altered mental status at this time. Dysphagia, failed swallow evaluation, recommended PEG placement, GI evaluated possible PEG placement on 11/22/2020. Patient is receiving Dobbhoff feeds, placed n.p.o. from midnight, possible PEG placement tomorrow. Family agreed for the procedure. Verbal consent obtained today 11/22/2020 for PEG procedure, patient underwent PEG placement today per GI. Assessment and plan --Dysphagia; failed swallow eval Speech therapist recommended PEG placement Family agreed, GI evaluated the patient Verbal consent obtained ,PEG was placed today 11/22/2020 Tube feeding per protocol as recommended by GI --Nutrition; Dobbhoff placement. Tube feeding per protocol N.p.o. from midnight of 11/22/2020 for possible PEG --Severe hypokalemia; K2.8 40 mEq KCl IV, at 20 mL KCl IV fluids Check magnesium, follow electrolytes --Acute metabolic encephalopathy; Multifactorial, multiple strokes, multi-infarct dementia Hypoxia, pneumonia, respiratory failure IV fluids, supportive care CVA work-up negative Neuro work-up so far: CT head without contrast no acute abnormality MRI brain; no acute abnormality, chronic microvascular disease CTA head; no evidence of large vessel occlusion involving intracranial vessel CTA neck; mild calcification involving carotid bifurcations bilaterally without significant stenosis. 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 which was also present in 2019 --Acute respiratory failure with hypoxia Patient is requiring 3 L nasal cannula oxygen Titrate O2 sats to more than 90% --Pneumonia, community-acquired IV ceftriaxone and IV azithromycin , follow cultures for now Covid 19 test negative --Sepsis secondary to community-acquired pneumonia IV Rocephin and IV Zithromax Follow cultures, oxygen titrate O2 sats to more than 90% --Multi-infarct dementia CVA, old, cognitive deficits,Supportive care Repeat CT of the head without any abnormalities of acute CVA Status post PEG placement, on PEG feeds --Hypertension Continue amlodipine IV hydralazine with parameters --Hyperlipidemia;Continue statins --DVT prophylaxis Hold heparin, for possible PEG tomorrow CODE STATUS: Full Speech and swallow evaluated the patient, failed swallow eval, recommend PEG placement GI evaluated, patient underwent PEG placement today, followed by tube feeding DC planning per case management possible hospice placement I also discussed the case with case management I spent 42 minutes coordinating this patient seen and examined medical records reviewed Patient feels slightly better continues to have shortness of breath Denies chest pain 11/20/2020; GI evaluated the patient possible PEG placement on 11/22/2020 Dobbhoff placement, tube feeding per protocol, restrain the patient if needed 11/21/2020; patient is receiving Dobbhoff feeds, placed n.p.o. from midnight For possible PEG placement tomorrow followed by hospice Discussed with patient's daughter in detail, agree with the PEG placement 11/22/2020; PEG placement today, verbal consent obtained from both the daughters by phone Patient had PEG placement today, start tube feeding per protocols Possible discharge tomorrow to hospice History Interval history: In and examined the patient at the bedside Patient's chart and medications reviewed Patient is scheduled for PEG placement I discussed with both the sisters and took a verbal consult and informed Dr. Whitlock Scheduled for PEG placement Vital signs stable Hospitalist Physical - Constitutional Vitals: Temp Pulse Resp BP Pulse Ox 98.1 F 106 H 20 148/111 95 11/22/20 05:16 11/22/20 05:16 11/22/20 05:16 11/22/20 05:30 11/22/20 05:16 General appearance: Present: no acute distress, well-nourished, other (Noncommunicative) - EENT Eyes: Present: PERRL, EOM intact - Neck Neck: Present: supple, normal ROM - Respiratory Respiratory effort: normal Respiratory: bilateral: diminished, negative: rales, rhonchi, wheezing - Cardiovascular Rhythm: regular Heart Sounds: Present: S1 & S2 - Extremities Extremities: no ischemia, No edema - Abdominal General gastrointestinal: soft, non-tender, non-distended, normal bowel sounds, other (PEG tube in place) - Integumentary Integumentary: Present: clear, warm - Psychiatric Psychiatric: appropriate mood/affect, cooperative, other (Noncommunicative confused) - Neurologic Neurologic: moves all extremities (Residual weakness) HEART Score - HEART Score Troponin: Troponin T < 0.010 ng/mL (0.00-0.029) 11/15/20 Unknown Results - Labs CBC & Chem 7: 11/22/20 00:09 11/22/20 00:09 Labs: Laboratory Last Values WBC 8.5 K/mm3 (4.5-11.0) 11/22/20 00:09 RBC 4.04 M/mm3 (3.65-5.03) 11/22/20 00:09 Hgb 12.3 gm/dl (10.1-14.3) 11/22/20 00:09 Hct 36.0 % (30.3-42.9) 11/22/20 00:09 MCV 89 fl (79-97) 11/22/20 00:09 MCH 30 pg (28-32) 11/22/20 00:09 MCHC 34 % (30-34) 11/22/20 00:09 RDW 14.2 % (13.2-15.2) 11/22/20 00:09 Plt Count 223 K/mm3 (140-440) 11/22/20 00:09 Lymph % (Auto) 24.6 % (13.4-35.0) 11/22/20 00:09 [place] % (Auto) 8.7 % (0.0-7.3) H 11/22/20 00:09 Eos % (Auto) 7.3 % (0.0-4.3) H 11/22/20 00:09 Baso % (Auto) 0.7 % (0.0-1.8) 11/22/20 00:09 Lymph # (Auto) 2.1 K/mm3 (1.2-5.4) 11/22/20 00:09 [place] # (Auto) 0.7 K/mm3 (0.0-0.8) 11/22/20 00:09 Eos # (Auto) 0.6 K/mm3 (0.0-0.4) H 11/22/20 00:09 Baso # (Auto) 0.1 K/mm3 (0.0-0.1) 11/22/20 00:09 Seg Neutrophils % 58.7 % (40.0-70.0) 11/22/20 00:09 Seg Neutrophils # 5.0 K/mm3 (1.8-7.7) 11/22/20 00:09 PT 15.3 Sec. (12.2-14.9) H 11/20/20 04:56 INR 1.23 (0.87-1.13) H 11/20/20 04:56 APTT 30.3 Sec. (24.2-36.6) 11/20/20 04:56 D-Dimer 373.6 ng/mlDDU (0-234) H 11/15/20 Unknown Sodium 139 mmol/L (137-145) 11/22/20 00:09 Potassium 3.7 mmol/L (3.6-5.0) 11/22/20 00:09 Chloride 107.9 mmol/L (98-107) H 11/22/20 00:09 Carbon Dioxide 24 mmol/L (22-30) 11/22/20 00:09 Anion Gap 11 mmol/L 11/22/20 00:09 BUN 5 mg/dL (7-17) L 11/22/20 00:09 Creatinine 0.5 mg/dL (0.6-1.2) L 11/22/20 00:09 Estimated GFR > 60 ml/min 11/22/20 00:09 BUN/Creatinine Ratio 10 % 11/22/20 00:09 Glucose 113 mg/dL (65-100) H 11/22/20 00:09 POC Glucose 118 mg/dL (70-105) H 11/22/20 06:41 Hemoglobin A1c 5.5 % (4-6) 11/16/20 06:38 Lactic Acid 0.70 mmol/L (0.7-2.0) 11/15/20 20:36 Calcium 8.7 mg/dL (8.4-10.2) 11/22/20 00:09 Magnesium 1.70 mg/dL (1.7-2.3) 11/20/20 04:56 Ferritin 382.5 ng/mL (10.0-200.0) H 11/15/20 Unknown Total Bilirubin 0.40 mg/dL (0.1-1.2) 11/22/20 00:09 AST 14 units/L (5-40) 11/22/20 00:09 ALT 10 units/L (7-56) 11/22/20 00:09 Alkaline Phosphatase 66 units/L (35-129) 11/22/20 00:09 Lactate Dehydrogenase 180 units/L (91-180) 11/15/20 Unknown Troponin T < 0.010 ng/mL (0.00-0.029) 11/15/20 Unknown C-Reactive Protein 0.00 mg/dL (0.00-1.30) 11/15/20 Unknown NT-Pro-B Natriuret Pep 106.8 pg/mL (0-900) 11/15/20 Unknown Total Protein 6.3 g/dL (6.3-8.2) 11/22/20 00:09 Albumin 3.1 g/dL (3.9-5) L 11/22/20 00:09 Albumin/Globulin Ratio 1.0 % 11/22/20 00:09 Procalcitonin < 0.05 ng/mL (<0.15) 11/15/20 Unknown Urine Color Yellow (Yellow) 11/16/20 Unknown Urine Turbidity Clear (Clear) 11/16/20 Unknown Urine pH 6.0 (5.0-7.0) 11/16/20 Unknown Ur Specific [place] 1.014 (1.003-1.030) 11/16/20 Unknown Urine Protein <15 mg/dl mg/dL (Negative) 11/16/20 Unknown Urine Glucose (UA) Neg mg/dL (Negative) 11/16/20 Unknown Urine Ketones Neg mg/dL (Negative) 11/16/20 Unknown Urine Blood Neg (Negative) 11/16/20 Unknown Urine Nitrite Neg (Negative) 11/16/20 Unknown Urine Bilirubin Neg (Negative) 11/16/20 Unknown Urine Urobilinogen < 2.0 mg/dL (<2.0) 11/16/20 Unknown Ur Leukocyte Esterase Neg (Negative) 11/16/20 Unknown Urine WBC (Auto) 1.0 /HPF (0.0-6.0) 11/16/20 Unknown Urine RBC (Auto) < 1.0 /HPF (0.0-6.0) 11/16/20 Unknown U Epithel Cells (Auto) 1.0 /HPF (0-13.0) 11/16/20 Unknown Urine Mucus Few /HPF 11/16/20 Unknown Coronavirus (PCR) Negative (Negative) 11/16/20 Unknown [place]/IV: Voiding Method External Female Catheter Active Medications - Current Medications Current Medications: Generic Name Dose Route Start Last Admin Trade Name Freq PRN Reason Stop Dose Admin Acetaminophen 650 mg 11/15/20 22:19 Acetaminophen 325 Mg Tab PO Q4H PRN Pain MILD(1-3)/Fever >100.5/PABLO Acetaminophen 325 mg 11/16/20 10:30 11/17/20 17:09 Acetaminophen 325 Mg Rect Supp SD 325 mg Q6H PRN Administration Fever >101 Amlodipine Besylate 5 mg 11/16/20 10:00 11/21/20 10:46 Amlodipine 5 Mg Tab PO 5 mg QDAY ELYSIA Administration Lipase/Protease/Amylase 1 each 11/20/20 12:01 Lipase 10,500/Protease 25,000/Amylase 43,750 (Units) Dr Peña FEEDTUBE PRN PRN For Clogged Feeding Tube Atorvastatin Calcium 80 mg 11/16/20 10:00 11/21/20 10:45 Atorvastatin 40 Mg Tab PO 80 mg DAILY ELYSIA Administration Famotidine 20 mg 11/15/20 23:00 11/21/20 22:04 Famotidine 20 Mg/2 Ml Inj IV 20 mg BID ELYSIA Administration Hydralazine HCl 50 mg 11/15/20 23:00 11/22/20 05:30 Hydralazine 25 Mg Tab PO 50 mg Q8HR ELYSIA Administration Hydralazine HCl 10 mg 11/16/20 10:30 Hydralazine 20 Mg/1 Ml Inj IV Q4HR PRN Blood Pressure Potassium Chloride/Dextrose/Sod Cl 20 meq in 1,000 mls @ 125 mls/hr 11/19/20 10:00 11/22/20 07:50 D5w/Ns W/Kcl 20meq IV 125 mls/hr DIRECT ELYSIA Administration Cefazolin Sodium 2 gm/ Sodium 100 mls @ 200 mls/hr 11/22/20 00:01 Chloride IV 11/22/20 23:59 ONCE NR Protocol Metoclopramide HCl 10 mg 11/15/20 22:19 Metoclopramide 10 Mg/2 Ml Inj IV Q6H PRN Nausea And Vomiting Morphine Sulfate 2 mg 11/15/20 22:19 Morphine 2 Mg/1 Ml Inj IV Q4H PRN Pain, Moderate (4-6) Nystatin 500,000 unit 11/18/20 18:00 11/21/20 22:04 Nystatin 500,000 Unit/5 Ml Oral Liqd PO 500,000 unit QID ELYSIA Administration Ondansetron HCl 4 mg 11/15/20 22:19 Ondansetron 4 Mg/2 Ml Inj IV Q8H PRN Nausea And Vomiting Simple Syrup 15 ml 11/20/20 12:01 Simple Syrup 15 Ml FEEDTUBE PRN PRN Hypoglycemia Simple Syrup 30 ml 11/20/20 12:01 Simple Syrup 15 Ml FEEDTUBE PRN PRN Hypoglycemia Sodium Bicarbonate 325 mg 11/20/20 12:01 Sodium Bicarbonate 325 Mg Tab FEEDTUBE PRN PRN For Clogged Feeding Tube Sodium Chloride 10 ml 11/16/20 10:00 11/21/20 22:04 Sodium Chloride 0.9% 10 Ml Flush Syringe IV 10 ml BID ELYSIA Administration Sodium Chloride 10 ml 11/15/20 22:19 Sodium Chloride 0.9% 10 Ml Flush Syringe IV PRN PRN LINE FLUSH Nutrition/Malnutrition Assess - Dietary Evaluation Nutrition/Malnutrition Findings: Nutrition Notes Start: 11/16/20 10:14 Freq: Status: Active Protocol: Document 11/22/20 09:32 CW (Rec: 11/22/20 09:45 CW [id number]) Nutrition Notes Initial or Follow up Reassessment Current Diagnosis COPD,Sepsis,Hypertension, Respiratory Failure,Stroke Other Pertinent Diagnosis Acute dysphagia, hyperlipidemia, Dementia, pneu , Current Diet NPO Labs/Tests reviewed Pertinent Medications D5NS w/ 20 mEq of KCl AT 125 ml/hr 30 mEq KCl Height 5 ft 5 in Weight 64.3 kg [place] Body Weight (kg) 56.81 BMI 23.6 Weight change and time frame 12% weight loss x 6 days Weight Status Appropriate Subjective/Other Information F/U for TF start and tolerance . TF held for PEG placement today. Jevity 1.2 was running at 30 ml/hr prior to TF being held. Unable to determine the amount infused prior to TF being held. Burn Absent Trauma Absent Difficulty In Swallowing Current % PO Negligible Minimum of two criteria No Interpretation of Weight Loss (severe) >2% in 1 week #2 Nutrition Diagnosis Inadequate oral intake Diagnosis Progress(for reassessment Continues documentation) #1 Nutrition Diagnosis Inadequate energy intake Diagnosis Progress(for reassessment Continues documentation) Is patient on ventilator? No Is Patient Ambulatory and/or Out of Bed No REE-([facility]-confined to bed) 1390.788 Calculation Used for Recommendations [facility] Additional Notes Protein needs are 72-86g (1-1. 2g/kg) Fluid needs are 1ml/kcal Nutrition Intervention Change Diet Order: Recommend TF Nutrition Support: Recommend Jevity 1.2 at 50 ml/ hr Free water flush 80 mlq4h Kcal 1,440 Protein (gm) 67 Fluid (mL) 969 Goal #1 TF initiation and tolerance Goal #2 Meet at least 75% of protein and energy needs via TF Anticipated Discharge Needs: TF Follow-Up By: 11/25/20 Additional Comments F/U for TF restart and tolerance
[2020-11-22] MEDS ORDERED: propofoL 200 MG/20 ML VIAL IV ONE (11:32)
[2020-11-22] MEDS ORDERED: ceFAZolin/Water 2 GM/20 ML 2 GM/20 ML SYRINGE IV ONE (11:48)
[2020-11-22] MEDS ORDERED: SODIUM CHLORIDE 0.9% 1000 ML 1,000 ML ONE (11:50)
[2020-11-22] MEDS ORDERED: SODIUM CHLORIDE 0.9% 1000 ML 1,000 ML IV SCH (12:00)
[2020-11-22] MEDS ORDERED: ceFAZolin/Water 2 GM/20 ML 2 GM/20 ML SYRINGE IV NR (12:00)
--- NOTE | 2020-11-22 12:02 | Post Anesthesia Evaluation ---
- Post Anesthesia Evaluation Patient Participated: No Airway Patent: Yes Stable Respiratory Function: Yes Nausea/Vomiting: No Temp > 96.8F: Yes Pain Manageable: Yes Adequeate Hydration: Yes Anesthesia Complications: No
--- NOTE | 2020-11-22 12:03 | Anesthesia Day of Surgery ---
Anesthesia Day of Surgery - Day of Surgery Patient Examined: Yes Patient H&P Reviewed: Yes Patient is NPO: Yes
--- NOTE | 2020-11-22 12:14 | Post Operative Note ---
Pre-op diagnosis: Oropharyngeal dysphagia Post-op diagnosis: other (Hiatal hernia, successful G-tube placement) Findings: 1. Medium sized hiatal hernia 2. Successful G-tube placement 3. Otherwise normal EGD Procedure: EGD/PEG Anesthesia: MAC Surgeon: DAWIT CLARKE Estimated blood loss: minimal Pathology: none Condition: stable Disposition: floor (May use G-tube after 4 hours)
[2020-11-22] MEDS: FAMOTIDINE 20 MG/2 ML INJ IV SCH ×2 (13:09→22:01)
[2020-11-22] MEDS: NYSTATIN 500,000 UNIT/5 ML ORAL LIQD PO SCH ×3 (13:09→18:41)
--- NOTE | 2020-11-22 14:42 | Operative Report ---
DATE OF SURGERY: 11/22/2020 PROCEDURE: Upper endoscopy with G-tube placement. PREOPERATIVE DIAGNOSIS: Oropharyngeal dysphagia. POSTOPERATIVE DIAGNOSES: Successful gastrostomy tube placement, a medium size hiatal hernia. SEDATION: MAC by anesthesia. HISTORY: The patient is a 70-year-old woman with a history of right-sided cerebrovascular accident and mild dementia, who has right-sided pneumonia. She has oropharyngeal dysphagia and safe swallowing has not been demonstrated by speech therapy. DESCRIPTION OF PROCEDURE: Procedure, indications, risks, and benefits were explained to the patient's daughter and consent was obtained. The patient was placed back on exam table and sedated. Videoendoscope was passed through the mouth, oropharynx, into the descending duodenum. Scope was then gradually withdrawn in the mucosa into the gastric lumen. This was insufflated and an appropriate location was located in the epigastric surface by transillumination and 1:1 ballottement. This was prepped and draped in a sterile fashion. 3 mL of Xylocaine were infiltrated into the skin using the safe-tract technique. Trocar was then placed percutaneously into the gastric lumen and a guidewire was passed through this. This was grasped with a snare and pulled out the mouth. A 20-Mauritian G-tube was attached to the wire at the mouth and pulled through the mouth and oropharynx into the gastric lumen and out the skin. Placement was confirmed by repeat endoscopy. FINDINGS: 1. Normal esophagus. 2. Medium size hiatal hernia. 3. Normal appearing gastric antrum, fundus, body and cardia. 4. Normal-appearing duodenal bulb and duodenum. 5. Successful 20-Maur[place] G-tube placement with bumper identified in appropriate location. The patient had no immediate complications. Estimated blood loss was minimal. IMPRESSION: 1. Medium size hiatal hernia. 2. Otherwise, normal endoscopy. 3. Successful gastrostomy tube placement. PLAN: 1. Monitor for complications. 2. May resume tube feeding in 4 hours. TID: [id number] RECEIPT: [id number] C/PRE/BRAEDEN
[2020-11-22] MEDS ORDERED: SIMPLE SYRUP 15 ML FEEDTUBE PRN ×2 (16:23)
[2020-11-22] MEDS ORDERED: SODIUM BICARBONATE 325 MG TAB FEEDTUBE PRN (16:23)
[2020-11-23] MEDS: ACETAMINOPHEN 325 MG TAB PO PRN
[2020-11-23] MEDS: NYSTATIN 500,000 UNIT/5 ML ORAL LIQD PO SCH ×4 (01:02→18:55)
[2020-11-23] MEDS: hydrALAZINE 25 MG TAB PO SCH ×2 (06:07→15:52)
[2020-11-23 06:15] LABS: Hematocrit 36.2 % (30.3-42.9)
--- NOTE | 2020-11-23 12:04 | Discharge Summary ---
Providers - Providers Date of Admission: 11/15/20 19:37 Date of discharge: 11/23/20 Attending physician: MAYITO PALMER 11/16/20 06:28 Speech Therapy Evaluation and Treat [CONS] Urgent Reason For Exam: swallowing difficulty 11/18/20 07:28 Consult to Physician [CONS] Routine Comment: Consulting Provider: JOBY TORRES Physician Instructions: Reason For Exam: multiple fevers/encephalopathy 11/18/20 07:30 Consult to Physician [CONS] Routine Comment: Consulting Provider: BETTY ANDERSON Physician Instructions: Reason For Exam: acute encephalopathy/aphasia 11/19/20 17:41 Consult to Physician [CONS] Routine Comment: Consulting Provider: DAWIT CLARKE Physician Instructions: Reason For Exam: Dysphagia/failed swallow/for PEG placement 11/20/20 12:01 Consult to Dietitian/Nutrition [CONS] Routine Physician Instructions: Assess nutrtn needs, initiate, modify, manage TF Reason For Exam: Reason for Consult: Write/Manage Tube Feeding Reason for Consult: Write/Manage Tube Feeding 11/20/20 17:41 Physical Therapy Evaluation and Treat [CONS] Routine Comment: Reason For Exam: weakness 11/22/20 16:24 Consult to Dietitian/Nutrition [CONS] Routine Physician Instructions: Assess nutrtn needs, initiate, modify, manage TF Reason For Exam: Reason for Consult: Write/Manage Tube Feeding Reason for Consult: Write/Manage Tube Feeding Primary care physician: ROGELIO URIBE MD Hospitalization Reason for admission: Aphasia and metabolic encephalopathy Condition: Stable Pertinent studies: Neuro work-up so far: CT head without contrast no acute abnormality MRI brain; no acute abnormality, chronic microvascular disease CTA head; no evidence of large vessel occlusion involving intracranial vessel CTA neck; mild calcification involving carotid bifurcations bilaterally without significant stenosis. 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 which was also present in 2019 Procedures: EGD and PEG placement Hospital course: 70-year-old -[place] female with a past medical history as below who presented with acute encephalopathy and sudden aphasia. Patient is being treated for acute community-acquired pneumonia and work-up for altered mental status at this time. Dysphagia, failed swallow evaluation, recommended PEG placement, GI evaluated possible PEG placement on 11/22/2020. Patient is receiving Dobbhoff feeds, placed n.p.o. from midnight, possible PEG placement tomorrow. Family agreed for the procedure. Verbal consent obtained today 11/22/2020 for PEG procedure, patient underwent PEG placement today per GI. Assessment and plan --Dysphagia; failed swallow eval Speech therapist recommended PEG placement Family agreed, GI evaluated the patient Verbal consent obtained ,PEG was placed today 11/22/2020 Tube feeding per protocol as recommended by GI --Nutrition; Dobbhoff placement. Tube feeding per protocol N.p.o. from midnight of 11/22/2020 for possible PEG --Severe hypokalemia; K2.8 40 mEq KCl IV, at 20 mL KCl IV fluids Check magnesium, follow electrolytes --Acute metabolic encephalopathy; Multifactorial, multiple strokes, multi-infarct dementia Hypoxia, pneumonia, respiratory failure IV fluids, supportive care CVA work-up negative --Acute respiratory failure with hypoxia Patient is requiring 3 L nasal cannula oxygen Titrate O2 sats to more than 90% --Pneumonia, community-acquired IV ceftriaxone and IV azithromycin , follow cultures for now Covid 19 test negative --Sepsis secondary to community-acquired pneumonia IV Rocephin and IV Zithromax Follow cultures, oxygen titrate O2 sats to more than 90% --Multi-infarct dementia CVA, old, cognitive deficits,Supportive care Repeat CT of the head without any abnormalities of acute CVA Status post PEG placement, on PEG feeds --Hypertension Continue amlodipine IV hydralazine with parameters --Hyperlipidemia;Continue statins --DVT prophylaxis Hold heparin, for possible PEG tomorrow CODE STATUS: Full Speech and swallow evaluated the patient, failed swallow eval, recommend PEG placement GI evaluated, patient underwent PEG placement today, followed by tube feeding DC planning per case management possible hospice placement I also discussed the case with case management I spent 42 minutes coordinating this patient seen and examined medical records reviewed Patient feels slightly better continues to have shortness of breath Denies chest pain Box box box open box Disposition: DC-50 TO HOSPICE (HOME) Final Discharge Diagnosis (Prints w/discharge instructions): Dysphagia. s/p PEG placement. Acute metabolic encephalopathy. Hypokalemia. Acute respiratory failure with hypoxia. Sepsis secondary to community-acquired pneumonia. Multi- infarct dementia. Hypertension. Dyslipidemia Time spent for discharge: 35 min Core Measure Documentation - Palliative Care Palliative Care/ Comfort Measures: Hospice Care - Core Measures Any of the following diagnoses?: none Exam - Constitutional Vitals: Temp Pulse Resp BP Pulse Ox 98.8 F 102 H 16 128/72 93 11/23/20 04:05 11/23/20 06:07 11/23/20 04:05 11/23/20 06:07 11/22/20 21:47 General appearance: Present: no acute distress, well-nourished - EENT Eyes: Present: PERRL, EOM intact - Neck Neck: Present: supple, normal ROM - Respiratory Respiratory effort: normal Respiratory: negative: rales - Cardiovascular Rhythm: regular Heart Sounds: Present: S1 & S2 - Extremities Extremities: no ischemia, No edema - Abdominal General gastrointestinal: Present: soft, non-tender, non-distended, normal bowel sounds - Integumentary Integumentary: Present: clear, warm - Musculoskeletal Musculoskeletal: strength equal bilaterally, generalized weakness - Psychiatric Psychiatric: appropriate mood/affect, cooperative - Neurologic Neurologic: moves all extremities Plan Activity: advance as tolerated, fall precautions Diet: other (PEG tube feeding per protocol ) Additional Instructions: PEG care. PEG tube spelt protocols. Aspiration precautions. Fall precautions. Further management per medical field representative Follow up with: ROGELIO URIBE MD [Primary Care Provider] - 3-5 Days DAWIT CLARKE MD [Staff Physician] - 6 Weeks Prescriptions: Nystatin [Nystatin SUSP] 500,000 unit PO QID #30 [facility] [place]
[2020-11-23] MEDS: amLODIPine 5 MG TAB PO SCH (12:53)
[2020-11-23] MEDS: FAMOTIDINE 20 MG/2 ML INJ IV SCH (12:54)
--- NOTE | 2020-11-23 15:14 | Gastroenterology Progress Note ---
Assessment and Plan oropharyngeal dysphagia - s/p egd/peg, cont tube feeds as tolerated per nutrition recommendations. post peg care daily. will sign off, please call as needed. Subjective Date of service: 11/23/20 Principal diagnosis: weakness and lack of speech Interval history: s/p egd/peg yesterday, on tube feeds, no events overnight Objective - Exam Narrative Exam: Gen: nad, non-verbal abd: soft, nd, + peg tube site c/d/i, external bumper loosened at bedside - Constitutional Vitals: Temp Pulse Resp BP Pulse Ox 98.8 F 102 H 16 128/72 93 11/23/20 04:05 11/23/20 06:07 11/23/20 04:05 11/23/20 06:07 11/22/20 21:47 - Labs CBC & Chem 7: 11/23/20 04:50 11/22/20 00:09 Labs: Laboratory Results - last 24 hr 11/22/20 11/23/20 11/23/20 16:17 00:44 04:50 Hgb 12.0 Hct 36.2 POC Glucose 120 H 162 H 11/23/20 06:40 Hgb Hct POC Glucose 134 H
[2020-11-23 18:25] VITALS: BP 155/86
== END 2020-11-23 20:19 | disposition hospice, home (50) | DRG 871 ==
LOC: ED 16:05 → 3A 19:37
PROVIDERS: ADMIT Internal Medicine; ATTEND Internal Medicine
PROC: 0DH63UZ Insertion of Feeding Device into Stomach, Percutaneous Approach (ICD-10-PCS; principal; 2020-11-22)
DX: A41.9 Sepsis, unspecified organism (principal); G93.41 Metabolic encephalopathy; J18.9 Pneumonia, unspecified organism; J96.01 Acute respiratory failure with hypoxia; I69.351 Hemiplegia and hemiparesis following cerebral infarction affecting right dominant side; R47.01 Aphasia; K44.9 Diaphragmatic hernia without obstruction or gangrene; Z20.822 Contact with and (suspected) exposure to COVID-19; J44.9 Chronic obstructive pulmonary disease, unspecified; E78.5 Hyperlipidemia, unspecified; F03.90 Unspecified dementia, unspecified severity, without behavioral disturbance, psychotic disturbance, mood disturbance, and anxiety; E87.6 Hypokalemia; Z79.891 Long term (current) use of opiate analgesic; Z79.01 Long term (current) use of anticoagulants; Z79.82 Long term (current) use of aspirin; Z87.440 Personal history of urinary (tract) infections; Z79.899 Other long term (current) drug therapy
CPT/HCPCS: 36415; 70450; 70496; 70498; 70551; 71045; 74018; 80048; 80053; 81001; 82140; 82728; 82947; 82962; 83036; 83615; 83735; 83880; 84132; 84145; 84484; 85014; 85018; 85025; 85027; 85379; 85610; 85730; 86140; 87040; 87086; 93005; 95819; 96365; 96375; G0378; J0456; J0690; J0692; J0696; J2704; J3370; J3480; J7030; J7040; J7042; J7050; Q9967; U0003